=== PATIENT | female | born 1990 | race African-American/Black ===

== ENCOUNTER 2017-01-02 11:03 | Emergency (ER) | payer OTHER ==
[~2017-01-02] VITALS: Ht 175.3 cm; Wt 80.3 kg
[~2017-01-02 11:03] MED LIST: CHOLTAB3 PO; FOLI1TAB7 PO; IBUP-1427 PO; PENI250T3 PO
[2017-01-02 11:05] VITALS: TEMP 36.7; Ht 175.3 cm; Wt 80.3 kg
[2017-01-02] MEDS ORDERED: CHOL400T PO (11:22)
[2017-01-02] MEDS ORDERED: SODIUM CHLORIDE 0.9% 1000ML 1,000 ML IV STA (11:25)
[2017-01-02 11:54] LABS: URINE APPEARANCE CLEAR (CLEAR); URINE BILIRUBIN NEG (NEG); URINE COLOR YELLOW; URINE NITRITE NEG (NEG); URINE SPECIFIC GRAVITY 1.011 (1.000-1.030); UROBILINOGEN NEG (NEG)
[2017-01-02 11:59] LABS: MANUAL MICROSCOPIC REQUIRED? NO; REVIEW REQ? NO
[2017-01-02 12:04] VITALS: O2SAT 97
[2017-01-02 12:04] LABS: PROTHROMBIN TIME (PATIENT) 10.4 SECONDS (9.0-12.0)
[2017-01-02 12:13] LABS: BASO % 0.6 %; BASO ABS # 0.06 K/uL (0-0.2); COMPLETE YES; EOS % 1.8 %; HEMATOCRIT 32.2 % (37-47); IG% 0.3 %; LYMPH % 12.7 %; LYMPH ABS # 1.27 K/uL (1.2-3.4); MEAN CELL VOLUME 75.2 fL (80-100); MEAN CORPUSCULAR HEMOGLOBIN 26.9 pg (25-34); MEAN CORPUSCULAR HGB CONC 35.7 g/dl (32-36); MEAN PLATELET VOLUME 9.7 fL (7.4-10.4); MONO % 9.9 %; NEUT % 74.7 %; PLATELET COUNT 361 K/uL (130-400); RED BLOOD COUNT 4.28 M/uL (4.2-5.4); WHITE BLOOD COUNT 10.02 K/uL (4.8-10.8)
[2017-01-02 12:36] LABS: BLOOD UREA NITROGEN 5 mg/dl (7-18); BUN/CREATININE RATIO 5.7 (10-20); CALCIUM 9.4 mg/dl (8.5-10.1); CARBON DIOXIDE 26 mmol/L (21-32); CHLORIDE 108 mmol/L (98-107); CREATININE 0.84 mg/dl (0.60-1.20); GLUCOSE 77 mg/dl (70-99); POTASSIUM 3.8 mmol/L (3.5-5.1); SODIUM 141 mmol/L (136-145)
--- NOTE | 2017-01-02 13:14 | DIAGNOSTIC IMAGING REPORT ---
CHEST 2 VIEWS ROUTINE HISTORY:26 yearsFemale acute chest pain. History of sickle cell disease. COMPARISON: Chest radiograph 02/22/2016. TECHNIQUE: Frontal and lateral views of the chest. FINDINGS: Cardiomediastinal and hilar silhouettes are within normal limits. There is no pneumothorax, pleural effusion, focal airspace consolidation or overt pulmonary edema. The bones are grossly intact. IMPRESSION: No acute cardiopulmonary process. The above report was generated using voice recognition software. It may contain grammatical, syntax or spelling errors. Electronically signed by: Domo Anthony M.D. 01/02/2017 1:12 PM Dictated Date/Time: 01/02/2017 1:11 PM
[2017-01-02] MEDS ORDERED: IBUPROFEN 600 MG TAB PO STA (13:18)
[2017-01-02] MEDS ORDERED: ALBUT/IPRATROP 3MG/0.5MG NEB 3 ML VIAL INH STA (13:18)
[2017-01-02 14:40] VITALS: BP 112/69; PULSE 74; O2SAT 98
--- NOTE | 2017-01-02 17:51 | EMERGENCY ROOM VISIT NOTE ---
History Report prepared by [place]: Mandy Wilder Under the Supervision of: Dr. Gab Flores M.D. First contact with patient: 11:19 Chief Complaint: ILLNESS Stated Complaint: SHORTNESS OF BREATH, CHEST PAINS, HEADACHE History of Present Illness The patient is a 26 year old female who presents to the Emergency Room with complaints of constant illness symptoms beginning 3 days prior to arrival. The patient states that her symptoms began with a headache, congestion, shortness of breath and chills. She notes a mild cough but states that she's been trying to suppress her cough. The patient states that 2 days ago she began to develop chest pain. She states the pain can be sharp at times. She has been taking Ibuprofen and is unsure if she has a fever. The patient denies leg swelling or chance of . The patient has sickle cell and denies ever having acute chest syndrome or any history of crises. She does have asthma and has been using her inhaler with no improvement of her symptoms. 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 A total of 10 systems reviewed and were otherwise negative. Past Medical & Surgical Medical Problems: (1) No pertinent past medical history Surgical Problems: (1) No pertinent past surgical history Family History Patient reports no known family medical history. Social History Smoking Status: Never Smoker Marital Status: single Occupation Status: student Current/Historical Medications Scheduled Cholecalciferol (Vitamin D), 400 UNITS PO DAILY Folic Acid (Folvite), 1 MG PO DAILY Allergies Coded Allergies: No Known Allergies (Unverified , 01/02/17) Physical Exam Vital Signs Date Time Temp Pulse Resp B/P (MAP) Pulse Ox O2 Delivery O2 Flow Rate FiO2 01/02/17 14:40 74 16 112/69 98 01/02/17 13:14 84 16 113/69 99 Room Air 01/02/17 12:04 97 Room Air 01/02/17 11:05 36.7 77 18 115/83 97 Room Air Physical Exam Constitutional: Vital signs reviewed. Eyes: Pupils are equal round reactive to light. Conjunctiva are noninjected. ENT: Pharynx is clear without erythema or exudate. Mucous membranes are moist. Neck supple without meningeal signs. Respiratory: Clear to auscultation bilaterally. Breath sounds are equal bilaterally. No wheezing. Cardiovascular: Regular rate and rhythm. No rubs or gallops. GI: Soft, nondistended and nontender. Bowel sounds are present. Musculoskeletal: No peripheral edema. No lower extremity tenderness. Integumentary: No cyanosis. Neurological: The patient is awake and alert. Cranial nerves II-XII are intact. Motor is 5 out of 5 all extremities. Sensation is intact to light touch all extremities. Normal speech. No pronator drift. Psychiatric: Normal affect. Medical Decision & Procedures ER Provider Diagnostic Interpretation: X-ray results as stated below per interpretation by me and the radiologist: CHEST 2 VIEWS ROUTINE HISTORY:26 yearsFemale acute chest pain. History of sickle cell disease. COMPARISON: Chest radiograph 02/22/2016. TECHNIQUE: Frontal and lateral views of the chest. FINDINGS: Cardiomediastinal and hilar silhouettes are within normal limits. There is no pneumothorax, pleural effusion, focal airspace consolidation or overt pulmonary edema. The bones are grossly intact. IMPRESSION: No acute cardiopulmonary process. The above report was generated using voice recognition software. It may contain grammatical, syntax or spelling errors. Electronically signed by: Domo Anthony M.D. 01/02/2017 1:12 PM Dictated Date/Time: 01/02/2017 1:11 PM Laboratory Results 01/02/17 12:00 Red Blood Count 4.28, Mean Corpuscular Volume 75.2, Mean Corpuscular Hemoglobin 26.9, Mean Corpuscular Hemoglobin Concent 35.7, Mean Platelet Volume 9.7, Neutrophils (%) (Auto) 74.7, Lymphocytes (%) (Auto) 12.7, Monocytes (%) (Auto) 9.9, Eosinophils (%) (Auto) 1.8, Basophils (%) (Auto) 0.6, Neutrophils # (Auto) 7.49, Lymphocytes # (Auto) 1.27, Monocytes # (Auto) 0.99, Eosinophils # (Auto) 0.18, Basophils # (Auto) 0.06 01/02/17 12:00 Test 01/02/17 00:00 01/02/17 11:40 01/02/17 12:00 Urine Color YELLOW Urine Appearance CLEAR (CLEAR) Urine pH 7.0 (4.5-7.5) Urine Specific [place] 1.011 (1.000-1.030) Urine Protein NEG (NEG) Urine Glucose (UA) NEG (NEG) Urine Ketones NEG (NEG) Urine Occult Blood NEG (NEG) Urine Nitrite NEG (NEG) Urine Bilirubin NEG (NEG) Urine Urobilinogen NEG (NEG) Urine Leukocyte Esterase NEG (NEG) Urine Test NEG (NEG) Prothrombin Time 10.4 SECONDS (9.0-12.0) Prothromb Time International Ratio 1.0 (0.9-1.1) Activated Partial Thromboplast Time 25.0 SECONDS (21.0-31.0) Partial Thromboplastin Ratio 1.0 White Blood Count 10.02 K/uL (4.8-10.8) Red Blood Count 4.28 M/uL (4.2-5.4) Hemoglobin 11.5 g/dL (12.0-16.0) Hematocrit 32.2 % (37-47) Mean Corpuscular Volume 75.2 fL (80-100) Mean Corpuscular Hemoglobin 26.9 pg (25-34) Mean Corpuscular Hemoglobin Concent 35.7 g/dl (32-36) Platelet Count 361 K/uL (130-400) Mean Platelet Volume 9.7 fL (7.4-10.4) Neutrophils (%) (Auto) 74.7 % Lymphocytes (%) (Auto) 12.7 % Monocytes (%) (Auto) 9.9 % Eosinophils (%) (Auto) 1.8 % Basophils (%) (Auto) 0.6 % Neutrophils # (Auto) 7.49 K/uL (1.4-6.5) Lymphocytes # (Auto) 1.27 K/uL (1.2-3.4) Monocytes # (Auto) 0.99 K/uL (0.11-0.59) Eosinophils # (Auto) 0.18 K/uL (0-0.5) Basophils # (Auto) 0.06 K/uL (0-0.2) RDW Standard Deviation 44.2 fL (36.4-46.3) RDW Coefficient of Variation 16.0 % (11.5-14.5) Immature Granulocyte % (Auto) 0.3 % Immature Granulocyte # (Auto) 0.03 K/uL (0.00-0.02) Nucleated RBC Absolute Count (auto) 0.05 K/uL (0-0) Nucleated Red Blood Cells % 0.5 % Absolute Reticulocyte Count 0.16 10^6/uL (0.02-0.10) Percent Reticulocyte Count 3.7 % (0.5-2.0) Anion Gap 7.0 mmol/L (3-11) Est Creatinine Clear Calc Drug Dose 117.2 ml/min Estimated GFR () 112.7 Estimated GFR (Non- 97.3 BUN/Creatinine Ratio 5.7 (10-20) Calcium Level 9.4 mg/dl (8.5-10.1) Troponin I < 0.015 ng/ml (0-0.045) Laboratory results as reviewed by me. Medications Administered Medications (Trade) Dose Ordered Sig/Elliot Route Start Time Stop Time Status Last Admin Dose Admin Sodium Chloride 1,000 ml @ 999 mls/hr Q1H1M STAT IV 01/02/17 11:25 01/02/17 12:25 DC 01/02/17 11:49 999 MLS/HR Ibuprofen (Motrin Tab) 600 mg NOW STAT PO 01/02/17 13:18 01/02/17 13:20 DC 01/02/17 13:32 600 MG Albuterol/ Ipratropium (Duoneb) 3 ml NOW STAT INH 01/02/17 13:18 01/02/17 13:20 DC 01/02/17 13:33 3 ML ECG Indication: SOB/dyspnea Rate (beats per minute): 66 Rhythm: normal sinus Findings: no acute ischemic change, no ectopy ED Course 1120: The patient was evaluated in room B11. A complete history and physical exam was performed. 1125: Sodium Chloride 1,000 ml @ 999 mls/hr IV. 1316: The patient states her chest pain is gone. She is only complaining of a headache and would like Motrin and a Nebulizer. I expressed concern for clot in the lung and she says she does not want any work up for that, she will not allow another IV placed and she just wants to go to work. 1318: Duoneb 3 ml INH, Motrin Tab 600 mg PO. 1417: I talked with the patient and she would like to go home. She is feeling better. She no longer has a headache or chest pain. 1422: Upon reevaluation, the patient appeared to have improvement of her symptoms. I discussed lamar's findings with her. She verbalized agreement of the treatment plan. She was discharged home. Medical Decision This is a 26-year-old female who presents with cold symptoms, chest pain and headache. Differential diagnosis includes URI, pneumonia, bronchitis, acute chest syndrome, sickle cell crisis, sinusitis. I did perform a limited focused review of portions of the patient's old chart on the electronic medical record. The patient has had no recent pertinent visits to this hospital. Medication Reconciliation: I attest that I have personally reviewed the patient' s current medication list. Blood Pressure Screening: Patient was found to have normal blood pressure on screening and does not require follow-up. I did evaluate the patient as noted above. The patient is presenting with cold symptoms and chest pain and a headache. She does have a history of sickle cell but has had no prior history of acute chest syndrome or crisis. She does have a history of asthma and feels she needs a nebulizer. IV access was established. I did order and personally review the patient's 12-lead EKG and chest x-ray as described above. Her twelve-lead EKG is unremarkable. Chest x- ray does not show any signs of infiltrate. I did order and review the patient' s blood work as noted in the electronic medical record. Troponin is negative. There is no signs of aplastic crisis. Urinalysis is unremarkable. I did wish to work her up for possible pulmonary embolism but the patient refused further workup. She stated that she would not let anyone putting an IV in her antecubital fossa. She furthermore only allowed them to put a very small bore IV in her hand. I expressed my concerns to her and she continued to decline any further workup. She was treated with a DuoNeb and Motrin. On reassessment she felt better. Her chest pain resolved and she denies any headache. She continues to decline any further workup and wanted to go to work and be discharged. She was advised follow closely with her doctor. She was discharged in good condition. Impression Primary Impression: Acute chest pain Additional Impressions: Acute headache Sickle cell anemia Scribe Attestation The scribe's documentation has been prepared under my direct and personally reviewed by me in its entirety. I confirm that the note above accurately reflects all work, treatment, procedures, and medical decision making performed by me. Departure Information Dispostion Home / Self-Care Referrals No Doctor, Assigned (PCP) Forms HOME CARE DOCUMENTATION FORM, IMPORTANT VISIT INFORMATION, WORK / SCHOOL INSTRUCTIONS Patient Instructions Anemia Sickle Cell, ED Chest Pain Atypical Unkn Cause, Headache Pain, My [facility] Additional Instructions You have been examined and treated today on an emergency basis only. This is not a substitute for, or an effort to provide, complete comprehensive medical care. It is impossible to recognize and treat all injuries or illnesses in a single emergency department visit. It is therefore important that you follow up closely with your physician within 24 hours. Call as soon as possible for an appointment. Return for worsening symptoms or if you develop fever, vomiting, difficulty breathing or any other concerning symptoms. Problem Qualifiers Additional Impressions: Acute headache Headache type: unspecified Intractability: not intractable Qualified Codes : R51 - Headache Sickle cell anemia Sickle-cell associated disorders: without crisis Qualified Codes: D57.1 - Sickle-cell disease without crisis
== END 2017-01-02 14:40 | disposition home or self-care (01) ==
LOC: C.EDB 11:04
DX: R07.9 Chest pain, unspecified (principal); R51 Headache; D57.1 Sickle-cell disease without crisis; Z79.899 Other long term (current) drug therapy; J45.909 Unspecified asthma, uncomplicated

== ENCOUNTER 2023-04-30 07:47 | Inpatient (IN) ==
[2023-04-30] MEDS ORDERED: OXYTOCIN 30 UNITS/500 ML BAG IV PRN ×2 (08:06→09:20)
[2023-04-30] MEDS ORDERED: LIDOCAINE 1% LOCAL 20 ML VIAL INFIL PRN (08:06)
--- NOTE | 2023-04-30 08:06 | History & Physical Report ---
Date of Service April 30, 2023 Assessment & Plan (1) Sickle cell anemia: (2) IUGR (intrauterine growth restriction) affecting care of mother: Plan Will admit patient to L&D for IOL. Mclain balloon placed yesterday and has not fallen yet. Patient comfortable. VSS. Fetus category 1. Pit as needed Stadol given Epidural prn Patient in agreement. Admission and Anticipated Discharge Date Admission Date: April 30, 2023 History of Present Illness Chief Complaint: induction of labor Primary Care Provider: Nayeli Headley PA-C [place] is a 32 y/o female currently at IUP 38 0/7 WGA with an PEDRO 05/14/23 as determined by certain LMP who is here for IOL due to hx of Sickle Cell anemia and IUGR. Cmlain balloon placed yesterday, which has not fallen out yet. (+) movement (-) contractions (-) fluid loss (-) bloody show External FHT and external uterine monitors used * Category 1 tracing * Moderate FHT variability. Had regular appointments since 1st trimester. OB Labs: Blood Type O Positive 10/16/22 Antibody Screen NEGATIVE 10/16/22 Hemoglobin 10.6 g/dl (12.0-16.0) L 04/12/23 Hematocrit 28.8 % (37.0-47.0) L 04/12/23 Mean Corpuscular Volume 72.2 fL (80.0-100.0) L 11/24/22 Platelet Count 329 K/uL (130-400) 11/24/22 Rubella IgG Antibody Immune (Immune) 10/16/22 Rapid Plasma Reagin Nonreactive (Nonreactive) 10/16/22 Hepatitis B Surface Antigen. NON-REACTIVE (NON-REACTIVE) 10/16/22 Hepatitis C Antibody (EIA) NON-REACTIVE (NON-REACTIVE) 10/16/22 HIV (1&2) Ag and Ab Confirmation NON-REACTIVE (NON-REACTIVE) 10/16/22 Glucose 1 Hour 50 gm Load 85 mg/dl (70-130) 02/19/23 Maternal Serum Alpha Fetoprotein 35.3 ng/mL 11/27/22 OB Optional Labs: Hemoglobin Electrophoresis Interp see note 09/09/18 Chlamydia trachomatis RNA Not Detected (NotDetected) 10/16/22 Neisseria gonorrhoeae RNA Not Detected (NotDetected) 10/16/22 Alpha Fetoprotein Triple Screen SEE NOTE 11/27/22 Labs Reviewed: cfdna-low risk Allergies Allergy/AdvReac Type Severity Reaction Status Date / Time pollen extracts Allergy Mild Congested Verified 04/30/23 08:01 Home Medications Medication Instructions Recorded Confirmed Type folic acid 1 mg tablet 4 mg (4 x 1 mg) PO DAILY sickle 10/16/22 04/30/23 Rx cell anemia #30 tabs aspirin 81 mg chewable tablet 81 mg PO QAM 11/24/22 04/30/23 History vitamin with calcium 1 tab PO QAM 11/24/22 04/30/23 History no.72-iron 27 mg-folic acid 1 mg tablet (WesTab Plus) ferrous sulfate 325 mg (65 mg 325 mg PO DAILY 04/29/23 04/30/23 History iron) tablet Patient History Medical History (Updated 04/30/23 @ 07:58 by Emi Robin RN) IUGR (intrauterine growth restriction) affecting care of mother Family history of diabetes mellitus (DM) 2 brothers with Type II Allergic rhinitis Asthma Use of cannabis used prior to - not used during Vitamin D deficiency Sickle cell anemia Follow [facility] Hematology Chronic anemia Surgical History No pertinent past surgical history Family History Grandmother No problems noted. Denies family history of Ovarian cancer Prostate cancer Myocardial infarction Breast cancer Colorectal cancer Social History (Updated 04/30/23 @ 08:01 by Emi Robin RN) Smoking Status: Never smoker Second Hand Exposure: No; Do You Dip or Chew Tobacco: No; Hx Alcohol Use: No Hx Substance Use: Yes Prescribed Medications: Marijuana Non-Prescribed Medications Comment: prior to Last Used Substance: Unknown Last Used Substance Other:: per patient used prior to Substance Use Type Other:: denied substance use when asked Preferred Language: Portuguese Tablet Tester Required: No Beliefs That Will Affect Care: None marital status: Single marital status details: Dee Dee NEGRON not involved Current Living Situation: Family Current Living Situation Comment: lives with brother, no pets current occupational status: unemployed 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states is no longer employed Other Information That Helps Us Care for You: No Feels Safe at Home: Yes Safety Concerns: Feels Safe At This Time Dental Care, Regularly: Yes Physical Activity Frequency: Daily Seatbelt Use: always [employer] RO[employer] History Menarche was at 17 y/o LMP: 08/07/22 * Regular: Every 28-30 days * Flow: Normal Contraception use: No History of STDs: N Last Pap Smear:01/30/2022 (negative) Review of Systems no fever, no chills and no sweats Denies changes in vision. Denies shortness of breath or respiratory difficulty. no chest pain and no palpitations no dysuria no headache(s) Physical Exam Physical Exam: General: Alert, oriented x3. Afebrile. No acute distress. Eyes: Pupils equal and reactive to light bilaterally. Extraocular movement intact bilaterally. Cardiac: Regular rate and rhythm, no murmurs/rubs/gallops. Respiratory: Clear to auscultation bilaterally a/p, no wheezes/rales/rhonchi. No increased work of breathing. Symmetrical chest rise. No respiratory distress. Abdomen: Gravid; FHR baseline 130-135 bpm; Position: Cephalic Pelvic: 2-3 / 60 / High per Dr. Mancini Lower Extremities: No lower extremity edema or swelling. No deep calf pain. Lico's negative bilaterally Genitourinary: OB Exam Abdomen: + vertex (confirmed by bedside ultrasound), + estimated weight (5-6 pounds) and + irregular contractions OB Exam Monitor Tracing: + external FHT monitor used, + external uterine monitor used, + category I, + normal FHT variability and + variable decelerations (one mild variable noted) isolated Results & Data Vital Signs (Past 12 Hours) Vital Signs Pulse BP 04/30/23 07:54 92 H 96/55 L Supervising Physician Co-Signing Physician Notes Resident Physician Supervision Note: I interviewed and examined the patient. Discussed with Dr. Ramirez and agree with findings and plan as documented in the note. Any exceptions or clarifications are listed here: [None] Documented By: Dafne German MD, FACOG Resident Activity Tracking Resident Involvement: Resident Care Provided Care Provided: OB Delivery
[2023-04-30] MEDS: LACTATED RINGER'S 1,000 ML IV PRN ×2 (09:23→12:19)
[2023-04-30] MEDS: BUTORPHANOL TARTRATE 1 MG/ML VIAL IV PRN ×2 (09:35→14:01)
[2023-04-30 09:42] LABS: Hematocrit (blood only) 29.7 % (37.0-47.0); Hemoglobin 10.8 g/dl (12.0-16.0); Mean Corpuscular Hemoglobin 27.8 pg (25.0-34.0); Mean Corpuscular Hgb Conc 36.4 g/dL (32.0-36.0); Mean Corpuscular Volume 76.3 fL (80.0-100.0); Mean Platelet Volume 10.5 fL (9.4-12.4); Nucleated RBC # (auto) 0.07 K/uL (0.00-0.12); Nucleated RBC % (auto) 0.6 %; Platelet Count 263 K/uL (130-400); RDW Coefficient of Variation 14.6 % (11.5-14.5); RDW Standard Deviation 40.2 fL (36.4-46.3); Red Blood Count 3.89 M/uL (4.20-5.40); White Blood Count 11.64 K/ul (4.8-10.8)
--- NOTE | 2023-04-30 12:30 | Labor Progress Brief Note ---
Date of Service April 30, 2023 Subjective Reason For Note: Monitor Concern moderate variables with contractions which are every 2-3 minutes on 6 milliunits of pitocin cervical balloon still in place cervix exam - no change will stop pit for now and watch FHT as variables have improved with stopping pitocin she is still su spontaneously every 3-5 minutes now but mild intensity T&S done FHT reviewed with patient and family. currently in early labor with minimal cervical change - will allow FHT's to recover but may have to move forward with LTCS if tracing continues with moderate and persistent variables with contractions. Assessment & Plan Admission and Anticipated Discharge Date Admission Date: April 30, 2023 Results & Data Vital Signs (Past 12 Hours) Vital Signs Temp Pulse Resp BP 04/30/23 11:39 65 127/73 04/30/23 11:00 18 04/30/23 11:00 98.8 F 18 04/30/23 10:39 67 101/60 04/30/23 09:38 71 108/67 04/30/23 07:56 98.4 F 20 04/30/23 07:54 92 H 96/55 L
[2023-04-30] MEDS ORDERED: CITRIC ACID/SODIUM CITRATE 15 ML UDC ONE (16:46)
--- NOTE | 2023-04-30 16:47 | Labor Progress Brief Note ---
Date of Service April 30, 2023 Subjective Reason For Note: Monitor Concern cervical balloon has fallen out and pitocin has not been restarted because of moderate to deep variables she is su spontaneously every 3-7 minutes and there are moderate to deep variables with each contraction cervix now 3-4/80/high with bulging membranes present presenting part to high to rupture membranes safely. moderate -deep variables prevent restarting the pitocin to get an adequate contraction pattern discussed options at this point with continuing induction with current contraction pattern - I am still unable to rupture membranes safely to facilitate better uterine contraction pattern. We discussed proceeding with section because of intolerance of labor. the procedure and it's risks were reviewed with the patient and her family and all questions answered to her satisfaction. Assessment & Plan Admission and Anticipated Discharge Date Admission Date: April 30, 2023 Results & Data Vital Signs (Past 12 Hours) Vital Signs Temp Pulse Resp BP 04/30/23 16:38 84 117/74 04/30/23 15:39 80 113/69 04/30/23 15:09 20 04/30/23 15:09 98.8 F 04/30/23 14:39 89 125/78 04/30/23 13:40 77 118/71 04/30/23 12:40 71 122/67 04/30/23 11:39 65 127/73 04/30/23 11:00 18 04/30/23 11:00 98.8 F 18 04/30/23 10:39 67 101/60 04/30/23 09:38 71 108/67 04/30/23 07:56 98.4 F 20 04/30/23 07:54 92 H 96/55 L
[2023-04-30] MEDS ORDERED: LACTATED RINGER'S 1,000 ML IV SCH (17:00)
[2023-04-30] MEDS ORDERED: CITRIC ACID/SODIUM CITRATE 15 ML UDC PO SCH (17:00)
--- NOTE | 2023-04-30 17:18 | Anesthesiology Consultation ---
Date of Service April 30, 2023 Assessment & Plan Chart Review Chart Review: Acceptable Risk for Surgery Consults Requested none History Surgery Operation Date: 04/30/23 17:45 Proposed Procedures p Section in LD - Dafne German MD, FACOG Height/Weight Height: 5 ft 9 in Weight: 102.058 kg Allergies Allergy/AdvReac Type Severity Reaction Status Date / Time pollen extracts Allergy Mild Congested Verified 04/30/23 08:01 Medications Home Medications Medication Instructions Recorded Confirmed Last Taken folic acid 1 mg tablet 4 mg (4 x 1 mg) PO DAILY sickle 10/16/22 04/30/23 04/28/23 cell anemia #30 tabs aspirin 81 mg chewable tablet 81 mg PO QAM 11/24/22 04/30/23 04/28/23 vitamin with calcium 1 tab PO QAM 11/24/22 04/30/23 04/24/23 no.72-iron 27 mg-folic acid 1 mg tablet (WesTab Plus) ferrous sulfate 325 mg (65 mg 325 mg PO DAILY 04/29/23 04/30/23 04/28/23 iron) tablet Active Medications Generic Name Dose Route Start Last Admin Trade Name Freq PRN Reason Stop Dose Admin Butorphanol Tartrate 1 mg 04/30/23 09:16 04/30/23 14:01 Butorphanol Tartrate 1 Mg/Ml Vial IV 05/30/23 09:15 1 mg Q2H PRN Administration Pain Citric Acid/Sodium Citrate 30 ml 04/30/23 17:00 04/30/23 17:05 Citric Acid/Sodium Citrate 15 Ml Udc PO 04/30/23 23:59 Not Given PREOP SHANIA Lactated Ringer's 1,000 mls @ 125 mls/hr 04/30/23 08:06 04/30/23 12:19 Lr IV 05/02/23 08:05 125 mls/hr .Q8H PRN Administration L&D Protocol Protocol Oxytocin 30 units in 500 mls @ 0 mls/hr 04/30/23 09:20 04/30/23 11:53 Pitocin IV 05/02/23 09:19 0 units/hr .Q0M PRN 0 mls/hr Labor Induction/Augmentation Titration Protocol 0 UNITS/HR Past Medical History Medical History (Updated 04/30/23 @ 07:58 by Emi Robin RN) IUGR (intrauterine growth restriction) affecting care of mother Family history of diabetes mellitus (DM) 2 brothers with Type II Allergic rhinitis Asthma Use of cannabis used prior to - not used during Vitamin D deficiency Sickle cell anemia Follow [facility] Hematology Chronic anemia Past Family History Family History Grandmother No problems noted. Denies family history of Ovarian cancer Prostate cancer Myocardial infarction Breast cancer Colorectal cancer Past Surgical History Surgical History No pertinent past surgical history Social History Smoking Status: Never smoker Do You Dip or Chew Tobacco: No Hx Alcohol Use: No Hx Substance Use: Yes substance use type: marijuana Substance Use Type Other:: denied substance use when asked Last Used Substance: Unknown Last Used Substance Other:: per patient used prior to Physical Exam Vital Signs Last Vital Signs Temp 37.1 C 04/30/23 15:09 Pulse 84 04/30/23 16:38 Resp 20 04/30/23 15:09 BP 117/74 04/30/23 16:38 Testing Laboratory Results 04/30/23 08:38 Blood Type O Positive 04/30/23 08:38 Antibody Screen NEGATIVE 04/30/23 08:38
[2023-04-30] MEDS ORDERED: LACTATED RINGER'S 500 ML IV PRN (17:29)
[2023-04-30] MEDS ORDERED: ePHEDrine sulfate 50 MG/ML AMP IV PRN (17:29)
[2023-04-30] MEDS ORDERED: MEPERIDINE HCL 25 MG/ML CARP/VIAL IV PRN (17:29)
[2023-04-30] MEDS ORDERED: NALBUPHINE HCL 5 MG in SYRINGE 0 ML IV PRN (17:29)
[2023-04-30] MEDS ORDERED: diphenhydrAMINE 50 MG/ML VIAL IV PRN (17:29)
[2023-04-30] MEDS ORDERED: HYDROmorphone INJ 0.5 MG/0.5 ML SYR IV PRN (17:29)
[2023-04-30] MEDS ORDERED: MoRPHine SULFATE PF 1 MG/ML 10 ML AMP/VIAL INT SPINAL ONE (17:29)
[2023-04-30] MEDS ORDERED: NALOXONE HCL 1 MG in SODIUM CHLORIDE 0.9% 1,000 ML IV PRN (17:29)
[2023-04-30] MEDS ORDERED: MoRPHine SULFATE 2 MG/ML CARP IV PRN (17:29)
[2023-04-30] MEDS ORDERED: NALOXONE HCL 0.08 MG in SYRINGE 1.8 ML IV PRN (17:29)
[2023-04-30] MEDS ORDERED: ACETAMINOPHEN 1,000 MG/100 ML VIAL IV PRN (17:29)
[2023-04-30] MEDS ORDERED: NALOXONE HCL 0.4 MG/1 ML VIAL/CARP IV PRN (17:29)
[2023-04-30] MEDS ORDERED: DC INTRASPINAL MORPHINE SCH (17:30)
[2023-04-30] MEDS ORDERED: NO NARCOTICS OR SEDATIVES SCH (17:30)
[2023-04-30] MEDS ORDERED: SODIUM CHLORIDE 0.9% 1,000 ML IV SCH (17:30)
[2023-04-30] MEDS ORDERED: MoRPHine SULFATE PF 1 MG/ML 10 ML AMP/VIAL ONE (17:33)
[2023-04-30] MEDS ORDERED: OXYTOCIN 10 UNITS/ML VIAL ONE ×2 (17:56→18:46)
[2023-04-30 18:33] LABS: Base Excess Cord Arterial Bld -6.4 mEq/L (-9-1.8); CO2 Cord Arterial Blood 54 mmHg (39.1-73.5); HCO3 Cord Arterial Blood 22 mmol/L (19.7-28.5); Oxygen Sat Cord Arterial Blood < 60.0 % (<60); PO2 Cord Arterial Blood < 20 mmHg (4.1-31.7); pH Cord Arterial Blood 7.22 (7.1-7.38)
[2023-04-30 18:38] LABS: Base Excess Cord Venous Blood -4.2 mEq/L (-7.7-1.9); Cord Venous Blood HCO3 23 mmol/L (18.4-26.8); Cord Venous Blood PCO2 52 mmHg (30.4-57.2); Cord Venous Blood PO2 < 20 mmHg (14.1-43.3); Cord Venous Blood pH 7.26 (7.20-7.44); O2 Saturation Cord Venous Bld < 60.0 % (<68)
[2023-04-30] MEDS ORDERED: ePHEDrine sulfate 50 MG/5 ML SYR ONE (18:46)
--- NOTE | 2023-04-30 18:49 | Post Operative Brief Note ---
PG Immediate Post Op with CF Date of Surgery April 30, 2023 Pre & Post Diagnosis Operation Date: 04/30/23 17:45 Pre-Op Diagnosis: Intolerance of Labor Post-Op Diagnosis: Intolerance of Labor I identified the patient and participated in the time-out.: Yes Procedure Operation Date: 04/30/23 17:45 Actual Procedures p Section in LD delivery of live male child at 1805 - Dafne Mancini MD, FACOG Surgeon Dafne German MD, FACOG Appellate Conferee Josephine Ramirez MD Estimated Blood Loss 600 Findings Consistent with Post-Op Diagnosis Specimens Specimen Description: 1. Placenta 2. Cord Blood 3. Cord blood gases Drains Mclain Catheter Anesthesia Type Spinal Complications none Disposition Accompanied Patient To Recovery: Yes Disposition: L&D
[2023-04-30] MEDS ORDERED: DIPHTHERIA/TETANUS/PERTUSSIS Vaccine (Tdap, Age 7+yrs) 0.5mL SYR/VL IM ONE (19:06)
[2023-04-30] MEDS ORDERED: MAGNESIUM HYDROXIDE SUSP 30 ML UDC PO PRN (19:06)
[2023-04-30] MEDS ORDERED: SENNA 8.6 MG TAB PO PRN (19:06)
[2023-04-30] MEDS ORDERED: HYDROCORTISONE ACETATE 25 MG SUPP PR PRN (19:06)
[2023-04-30] MEDS ORDERED: BENZOCAINE 20% SPRY 85 APPLN/85 GM CAN EXT PRN (19:06)
[2023-04-30] MEDS: KETOROLAC 30 MG/ML VIAL IV PRN (19:20)
[2023-04-30] MEDS: LACTATED RINGER'S 1,000 ML IV SCH (19:47)
[2023-04-30] MEDS: OXYTOCIN 20 UNITS in LACTATED RINGER'S 1,000 ML IV SCH (20:03)
--- NOTE | 2023-04-30 20:33 | Anesthesiology Progress Note ---
Date of Service April 30, 2023 Anesthesia Post Procedure Vital Signs Vital Signs: Temp Pulse Resp BP Pulse Ox 04/30/23 20:27 100 H 96 04/30/23 20:22 93 H 103/61 96 04/30/23 20:17 104 H 96 04/30/23 20:12 96 04/30/23 20:12 85 04/30/23 20:12 84 103/61 04/30/23 20:09 88 88 L 04/30/23 20:07 88 97 04/30/23 20:02 94 H 107/61 97 04/30/23 19:57 86 99 04/30/23 19:52 36.7 C 20 04/30/23 19:52 83 104/55 L 99 04/30/23 19:47 80 98 04/30/23 19:42 20 04/30/23 19:42 99 04/30/23 19:42 81 04/30/23 19:42 85 102/57 L 04/30/23 19:37 82 99 04/30/23 19:32 20 04/30/23 19:32 90 104/62 100 04/30/23 19:27 79 100 04/30/23 19:23 80 116/62 04/30/23 19:22 18 04/30/23 19:22 85 100 04/30/23 19:17 90 100 04/30/23 19:12 18 04/30/23 19:12 83 111/55 L 100 04/30/23 19:07 86 100 04/30/23 19:02 20 04/30/23 19:02 86 119/56 L 100 04/30/23 18:57 77 99 04/30/23 18:54 82 110/59 L 04/30/23 18:52 37.0 C 20 04/30/23 18:52 83 100 04/30/23 16:38 84 117/74 04/30/23 15:39 80 113/69 04/30/23 15:09 20 04/30/23 15:09 37.1 C 20 04/30/23 14:39 89 125/78 04/30/23 13:40 77 118/71 04/30/23 12:40 71 122/67 04/30/23 11:39 65 127/73 04/30/23 11:00 18 04/30/23 11:00 37.1 C 18 04/30/23 10:39 67 101/60 04/30/23 09:38 71 108/67 04/30/23 07:56 36.9 C 20 04/30/23 07:54 92 H 96/55 L Pain Intensity Lower Abdomen: Pain Intensity: 3 Transfer of Care Handoff Completed per policy Notes Mental Status: alert / awake / arousable and participated in evaluation Nausea / Vomiting: adequately controlled Pain: adequately controlled Airway Patency, RR, SpO2: stable & adequate BP & HR: stable & adequate Hydration State: stable & adequate Neuraxial Anesthesia: was administered and sensory block is resolving Anesthetic Complications: no major complications apparent and Pt Satisfied with anesthetic care
--- NOTE | 2023-04-30 21:55 | Operative Report ---
PG Post Operative Report Pre & Post Diagnosis Operation Date: 04/30/23 17:45 Pre-Op Diagnosis: Intolerance of Labor Post-Op Diagnosis: Intolerance of Labor I identified the patient and participated in the time-out.: Yes Procedure Operation Date: 04/30/23 17:45 Actual Procedures p Section in LD delivery of live male child at 1805 - Dafne Mancini MD, FACOG Surgeon Dafne German MD, FACOG V Belt Coverer Josephnie Ramirez MD Estimated Blood Loss 600 Findings Consistent with Post-Op Diagnosis The uterus was gravid and consistent with a term in size. Bilateral ovaries and fallopian tubes were also grossly normal. There were 3 tiny sessile fibroids on the fundus of the uterus. Specimens Placenta to hold Drains Mclain catheter to straight drainage. Clear urine at the end of the case. Anesthesia Type Spinal Complications none Disposition Accompanied Patient To Recovery: Yes Disposition: L&D Indications Patient is a 32-year-old 1 P0 female presents at 38-0/7 weeks for induction because of IUGR. She received a cervical balloon for ripening and then Pitocin induction was begun. Almost immediately after the Pitocin was initiated, there were moderate variables with each contraction. The Pitocin had to be stopped although she continued to contract spontaneously. Cervical balloon was expelled but the presenting part could not be palpated with bulging membranes present. Because of the ongoing moderate to severe variables with contractions, and because membranes could not be ruptured because of the high station of the head, it was felt prudent to proceed with low transverse section. This was discussed at length with the patient and her mother and after all questions were answered they were willing to proceed. Description of Procedure After the patient received adequate subarachnoid block she was prepped and draped in usual sterile fashion. A low transverse skin incision was made with a scalpel carried the fascia with the same scalpel. The fascial incision was then extended with Rodriguez scissors and the underlying rectus muscles bluntly sharply dissected off the overlying fascia. The rectus muscles were then bluntly divided in the midline and the underlying peritoneum elevated and entered sharply. The lower uterine segment was not well developed and was quite narrow. The bladder was then taken down off the anterior surface of the uterus and placed behind the bladder blade. Lower uterine incision was made with a scalpel and the incision was extended transversely. Membranes were ruptured for clear fluid. The infant was delivered from the vertex presentation with moderate fundal pressure and assistance of a Kiwi vacuum to bring the head into the uterine incision. Delivery of the head was difficult because of the narrowness of her pelvis. After the head was delivered the rest the infant delivered easily. He was vigorous, crying, and moving all 4 limbs. Cord was clamped and cut. Cord gases were sent. The was handed off to Dr. Ward who was attendance as laboratory animal facility supervisor. After cord blood was obtained, the placenta was expressed intact with a three-vessel cord. The uterus was then exteriorized and cut with a clean lap sponge. The uterus was then closed in 2 layers in a running locking imbricating fashion with 0 Monocryl suture. Bleeding along the bladder flap was controlled with the Bovie. Hemostasis noted to be satisfactory in both the uterine incision and bladder flap area. Posterior cul-de-sac was suctioned for small amount of blood and clot. After examining the uterine incision once more and found to have excellent hemostasis, the uterus was placed gently back inside the abdominal cavity. Hemostasis continue to be satisfactory and the gutters were explored and found to be free of any clot or fluid. The rectus muscles were brought together on the midline with individual stitches of 0 Monocryl. The fascia was then closed in a running fashion with 0 Vicryl. After the subcutaneous layer was irrigated, the skin edges were reapproximated using a subcuticular stitch of 4-0 Vicryl. Patient tolerated procedure well was stable upon arrival back in labor and delivery. I attest to the content of the Intraoperative Record and any orders documented therein. Any exceptions are noted below. OB Procedure Charges 38573
[2023-05-01] MEDS: DOCUSATE SODIUM 100 MG CAP PO SCH ×3 (00:13→20:52)
[2023-05-01] MEDS: SIMETHICONE 80 MG CHEW PO SCH ×5 (00:13→20:52)
[2023-05-01] MEDS: KETOROLAC 30 MG/ML VIAL IV PRN ×2 (01:57→08:20)
[2023-05-01] MEDS: OXYTOCIN 20 UNITS in LACTATED RINGER'S 1,000 ML IV SCH (04:09)
--- NOTE | 2023-05-01 07:45 | Obstetrical Progress Note ---
Date of Service <Josephine Ramirez MD - Last Filed: 05/01/23 07:47> May 01, 2023 Assessment & Plan <Josephine Ramirez MD - Last Filed: 05/01/23 07:47> (1) Encounter for assessment: Plan Patient with the above mentioned history and findings was evaluated at bedside and found awake, alert, oriented in all spheres, afebrile, and in no acute distress. Vital signs showed no fever and blood pressures remained stable Her blood type is O pos and most recent hemoglobin at 10.8 g/dL. She is GBS negative and rubella immune. Overall, patient is doing well clinically. Diet already progressed and patient tolerating well. Will encourage ambulation as tolerated and remove Mclain catheter later today. Will continue routine pp care. All questions were answered. <Dafne German MD, FACOG - Last Filed: 05/01/23 07:48> (1) Encounter for assessment: Subjective <Josephine Ramirez MD - Last Filed: 05/01/23 07:47> Lima is a 32 y/o female who is POD #1 following primary delivery at 38 0/7 weeks due to intolerance to labor. She reports feeling well overall this morning. Refers moderate abdominal cramping & 6/10 pain well managed on analgesics. Voiding through Mclain, which contains clear urine that is free of blood or sediment in the collecting bag and the line. Tolerating meals overnight. Has sat on the side of the bed without subsequent lightheadedness or dizziness, but has not ambulated or stood up yet. She is passing gas but has not yet had a bowel movement. Has some persistent lochia with some improvement this morning. Currently . Constitutional: no fever, no chills or no sweats Denies shortness of breath or difficulty breathing. Cardiovascular: no chest pain or no palpitations Breast: no breast pain Genitourinary (female): no dysuria Neurologic: no headache(s) Denies changes in vision. Physical Exam <Josephine Ramirez MD - Last Filed: 05/01/23 07:47> General: Alert. Oriented to person, time, and place. Afebrile. No acute distress. Eyes: pupils equal and reactive to light bilaterally, extraocular movements intact. Cardiac: Regular rate and rhythm, no murmurs/rubs/gallops. Respiratory: Clear to auscultation bilaterally a/p, no wheezes/rales/rhonchi. No increased work of breathing. Symmetrical chest rise. No respiratory distress. Abdomen: Soft, nontender, nondistended. Bowel sounds present. Low transverse surgical scar clean, without surrounding erythema or suppuration, and healing well. Uterus: Uterine fundus firm, mildly tender, and palpable below umbilicus. Lower Extremities: No lower extremity edema or swelling. No deep calf pain. Lico's negative bilaterally. Psych: Euthymic affect. Mood and affect congruence. Regular speech rate and content. Results & Data <Josephine Ramirez MD - Last Filed: 05/01/23 07:47> Vital Signs (Past 12 Hours) Vital Signs Temp Pulse Pulse Pulse Resp BP BP 05/01/23 06:10 16 05/01/23 05:15 16 05/01/23 04:20 05/01/23 03:55 36.6 C 80 16 104/68 05/01/23 03:15 05/01/23 02:15 05/01/23 01:15 05/01/23 00:15 04/30/23 23:12 16 04/30/23 23:12 36.4 C L 81 16 109/68 04/30/23 22:15 16 04/30/23 21:30 36.5 C 82 16 112/70 04/30/23 21:30 04/30/23 21:30 16 04/30/23 21:02 85 04/30/23 20:57 87 04/30/23 20:53 93 H 106/54 L 04/30/23 20:52 36.9 C 20 04/30/23 20:52 88 04/30/23 20:47 87 04/30/23 20:42 84 104/58 L 04/30/23 20:37 88 04/30/23 20:32 91 H 105/57 L 04/30/23 20:27 100 H 04/30/23 20:22 20 04/30/23 20:22 93 H 103/61 04/30/23 20:17 104 H 04/30/23 20:12 04/30/23 20:12 85 04/30/23 20:12 84 103/61 04/30/23 20:09 88 04/30/23 20:07 88 04/30/23 20:02 94 H 107/61 04/30/23 19:57 86 04/30/23 19:52 36.7 C 20 04/30/23 19:52 83 104/55 L 04/30/23 19:47 80 04/30/23 19:42 20 04/30/23 19:42 04/30/23 19:42 81 04/30/23 19:42 85 102/57 L Pulse Ox O2 Del Method O2 Del Method 05/01/23 06:10 96 05/01/23 05:15 95 05/01/23 04:20 95 05/01/23 03:55 98 Room Air 05/01/23 03:15 96 05/01/23 02:15 97 05/01/23 01:15 96 05/01/23 00:15 94 04/30/23 23:12 96 04/30/23 23:12 96 Room Air 04/30/23 22:15 97 04/30/23 21:30 98 Room Air 04/30/23 21:30 Room Air 04/30/23 21:30 98 04/30/23 21:02 96 04/30/23 20:57 97 04/30/23 20:53 04/30/23 20:52 04/30/23 20:52 97 04/30/23 20:47 95 04/30/23 20:42 96 04/30/23 20:37 96 04/30/23 20:32 96 04/30/23 20:27 96 04/30/23 20:22 04/30/23 20:22 96 04/30/23 20:17 96 04/30/23 20:12 96 04/30/23 20:12 04/30/23 20:12 04/30/23 20:09 88 L 04/30/23 20:07 97 04/30/23 20:02 97 04/30/23 19:57 99 04/30/23 19:52 04/30/23 19:52 99 04/30/23 19:47 98 04/30/23 19:42 04/30/23 19:42 99 04/30/23 19:42 04/30/23 19:42 Supervising Physician <Dafne German MD, FACOG - Last Filed: 05/01/23 07:48> Co-Signing Physician Notes Resident Physician Supervision Note: I interviewed and examined the patient. Discussed with Dr. Ramirez and agree with findings and plan as documented in the note. Any exceptions or clarifications are listed here: [None] Documented By: Dafne German MD, FACOG Resident Activity Tracking <Josephine Ramirez MD - Last Filed: 05/01/23 07:47> Resident Involvement: Resident Care Provided Care Provided: OB Delivery
[2023-05-01 07:49] LABS: Mean Corpuscular Hemoglobin 28.3 pg (25.0-34.0); Mean Corpuscular Volume 76.5 fL (80.0-100.0); Nucleated RBC # (auto) 0.05 K/uL (0.00-0.12); Nucleated RBC % (auto) 0.4 %; Platelet Count 222 K/uL (130-400); RDW Coefficient of Variation 14.6 % (11.5-14.5); RDW Standard Deviation 39.8 fL (36.4-46.3); Red Blood Count 3.53 M/uL (4.20-5.40)
[2023-05-01 07:50] LABS: Basophils # (auto) 0.12 K/uL (0.00-0.20); Basophils % (auto) 0.9 %; Eosinophils # (auto) 0.51 K/uL (0.00-0.50); Eosinophils % (auto) 3.7 %; Immature Granulocytes # (auto) 0.07 K/uL (0.01-0.20); Immature Granulocytes % (auto) 0.5 %; Lymphocytes # (auto) 2.28 K/uL (1.20-3.40); Lymphocytes % (auto) 16.4 %; Monocytes # (auto) 1.09 K/uL (0.11-0.59); Monocytes % (auto) 7.8 %; Neutrophils # (auto) 9.83 K/uL (1.40-6.50); Neutrophils % (auto) 70.7 %; Polychromasia 1+; Target Cells 3+
[2023-05-01] MEDS: FERROUS SULFATE 325 MG TAB PO SCH (08:15)
[2023-05-01] MEDS: FOLIC ACID 1 MG TAB PO SCH (08:15)
[2023-05-01] MEDS: ASPIRIN 81 MG CHEW PO SCH (08:15)
[2023-05-01] MEDS: PRENATAL VITAMIN 1 TAB PO SCH (08:18)
[2023-05-01] MEDS ORDERED: IRON PO SCH (09:00)
[2023-05-01] MEDS ORDERED: PNV CALCIUM IRON FOLIC ACID PO SCH (09:00)
[2023-05-01] MEDS ORDERED: [UNRECOGNIZED DRUG - OTHER] PO SCH (09:00)
[2023-05-01] MEDS ORDERED: NON-FORMULARY MEDICATION (Ferrous Sulfate 325 mg (65 mg iron) Tablet) PO SCH (09:00)
[2023-05-01] MEDS ORDERED: PROMETHAZINE HCL 25 MG in SODIUM CHLORIDE 0.9% 50 ML IV PRN (11:30)
[2023-05-01] MEDS ORDERED: diphenhydrAMINE Capsule 25 MG CAP PO PRN (11:30)
[2023-05-01] MEDS ORDERED: diphenhydrAMINE 50 MG/ML VIAL IV PRN (11:30)
[2023-05-01] MEDS ORDERED: ONDANSETRON INJ 2 MG/ML 2 ML VIAL IV PRN (11:30)
[2023-05-01] MEDS: oxyCODONE/ACETAMINOPHEN 5mg/325mg TAB PO PRN ×3 (13:07→21:46)
[2023-05-01] MEDS: IBUPROFEN 600 MG TAB PO PRN ×3 (13:07→21:46)
[2023-05-01] MEDS ORDERED: bisacodyL 5 MG TABEC PO SCH (20:00)
[2023-05-02] MEDS: IBUPROFEN 600 MG TAB PO PRN ×4 (04:54→20:49)
[2023-05-02] MEDS: oxyCODONE/ACETAMINOPHEN 5mg/325mg TAB PO PRN ×4 (04:54→20:50)
--- NOTE | 2023-05-02 06:18 | Obstetrical Progress Note ---
Date of Service <Josephine Ramirez MD - Last Filed: 05/02/23 06:54> May 02, 2023 Assessment & Plan <Josephine Ramirez MD - Last Filed: 05/02/23 06:54> (1) Encounter for assessment: Plan Patient with the above mentioned history and findings was evaluated at bedside and found awake, alert, oriented in all spheres, afebrile, and in no acute distress. Vital signs showed no fever and blood pressures remained stable Her blood type is O pos and most recent hemoglobin at 10.0 g/dL. She is GBS negative and rubella immune. Overall, patient is doing well clinically. Abdominal binder will be ordered to help with patient's pain. Will continue routine pp care. All questions were answered. <Delfina Carr MD - Last Filed: 05/02/23 07:38> (1) Encounter for assessment: Subjective <Josephine Ramirez MD - Last Filed: 05/02/23 06:54> Lima is a 32 y/o female who is POD #2 following primary delivery at 38 0/7 weeks due to intolerance to labor. She reports feeling well overall this morning. Refers moderate abdominal cramping & 8/10 pain after taking Motrin and Percocet recently. She says she can handle the pain since she's sleeping. Voiding spontaneously. Tolerating meals overnight. Has stood up and walked some without lightheadedness or dizziness. She is passing gas but has not yet had a bowel movement. Has some persistent lochia with some improvement this morning. Currently . Constitutional: no fever, no chills or no sweats Denies shortness of breath or difficulty breathing. Cardiovascular: no chest pain or no palpitations Breast: no breast pain Genitourinary (female): no dysuria Neurologic: no headache(s) Denies changes in vision. Physical Exam <Josephine Ramirez MD - Last Filed: 05/02/23 06:54> General: Alert. Oriented to person, time, and place. Afebrile. No acute distress. Eyes: pupils equal and reactive to light bilaterally, extraocular movements intact. Cardiac: Regular rate and rhythm, no murmurs/rubs/gallops. Respiratory: Clear to auscultation bilaterally a/p, no wheezes/rales/rhonchi. No increased work of breathing. Symmetrical chest rise. No respiratory distress. Abdomen: Soft, nontender, nondistended. Bowel sounds present. Low transverse surgical scar clean, without surrounding erythema or suppuration, and healing well. Uterus: Uterine fundus firm, tender, and palpable below umbilicus. Lower Extremities: Mild bilateral swelling. No deep calf pain. Lico's negative bilaterally. Psych: Euthymic affect. Mood and affect congruence. Regular speech rate and content. Results & Data <Josephine Ramirez MD - Last Filed: 05/02/23 06:54> Vital Signs (Past 12 Hours) Vital Signs Temp Pulse Resp BP 05/01/23 23:45 36.7 C 85 18 106/68 05/01/23 20:15 36.4 C L 86 18 99/63 L Supervising Physician <Delfina Carr MD - Last Filed: 05/02/23 07:38> Co-Signing Physician Notes Resident Physician Supervision Note: I interviewed and examined the patient. Discussed with Dr. Ramirez and agree with findings and plan as documented in the note. Any exceptions or clarifications a re listed here: POD2 s/p pLTCS. Reports some difficulty w/ pain, meds help but also make her sleepy. VSS, incision c/d/i. Discussed abd binder as well, continue routine pp care Documented By: Delfina Carr MD Resident Activity Tracking <Josephine Ramirez MD - Last Filed: 05/02/23 06:54> Resident Involvement: Resident Care Provided Care Provided: OB Delivery
[2023-05-02] MEDS: PRENATAL VITAMIN 1 TAB PO SCH (08:33)
[2023-05-02] MEDS: DOCUSATE SODIUM 100 MG CAP PO SCH ×2 (08:33→20:49)
[2023-05-02] MEDS: SIMETHICONE 80 MG CHEW PO SCH ×4 (08:33→20:49)
[2023-05-02] MEDS: FERROUS SULFATE 325 MG TAB PO SCH (08:33)
[2023-05-02] MEDS: FOLIC ACID 1 MG TAB PO SCH (08:34)
[2023-05-02] MEDS: ASPIRIN 81 MG CHEW PO SCH (08:34)
[2023-05-02] MEDS ORDERED: bisacodyL 10 MG SUPP PR PRN (18:41)
[2023-05-02] MEDS: LACTATED RINGER'S 1,000 ML IV SCH ×2 (22:10→22:11)
[2023-05-03] MEDS: oxyCODONE/ACETAMINOPHEN 5mg/325mg TAB PO PRN ×3 (03:11→12:54)
[2023-05-03] MEDS: IBUPROFEN 600 MG TAB PO PRN ×3 (03:12→12:55)
--- NOTE | 2023-05-03 07:00 | Obstetrical Progress Note ---
Date of Service <Josephine Ramirez MD - Last Filed: 05/03/23 08:28> May 03, 2023 Assessment & Plan <Joesphine Ramirez MD - Last Filed: 05/03/23 08:28> (1) Encounter for assessment: Plan Patient with the above mentioned history and findings was evaluated at bedside and found awake, alert, oriented in all spheres, afebrile, and in no acute distress. Vital signs showed no fever and blood pressures remained stable Her blood type is O pos and most recent hemoglobin at 10.0 g/dL. She is GBS negative and rubella immune. Overall, patient is doing well clinically and meeting the desired milestones. Since she is clinically and hemodynamically stable, will discharge today. Given her lack of fevers, as well as her pain which seems to improve with positioning and get worse with exertion, it seems to be muscular in origin. She was counseled of this and was advised that should her symptoms get worse or if she develops a fever accompanying this pain, she should contact the office for evaluation. Otherwise, she was counseled to make an appointment with her OB in 6 weeks for her routine pp evaluation. Discharge instructions discussed. All questions answered. <Lou Srivastava DO - Last Filed: 05/03/23 08:50> (1) Encounter for assessment: Subjective <Josephine Ramirez MD - Last Filed: 05/03/23 08:28> Lima is a 32 y/o female who is POD #3 following primary delivery at 38 0/7 weeks due to intolerance to labor. She reports feeling well overall this morning. Refers moderate abdominal cramping & 6/10 pain after using Motrin and Percocet. She describes her pain is more in her abdominal midline around the umbilical area, and that it gets worse with movement and improves with some changes in position. Voiding spontaneously. Tolerating meals overnight. Has stood up and walked some without lightheadedness or dizziness. She is passing gas but has not yet had a bowel movement. Has some persistent lochia with some improvement this morning. Currently . Constitutional: no fever, no chills or no sweats Denies shortness of breath or difficulty breathing. Cardiovascular: no chest pain or no palpitations Breast: no breast pain Genitourinary (female): no dysuria Neurologic: no headache(s) Denies changes in vision. Physical Exam <Josephine Ramirez MD - Last Filed: 05/03/23 08:28> General: Alert. Oriented to person, time, and place. Afebrile. No acute distress. Eyes: pupils equal and reactive to light bilaterally, extraocular movements intact. Cardiac: Regular rate and rhythm, no murmurs/rubs/gallops. Respiratory: Clear to auscultation bilaterally a/p, no wheezes/rales/rhonchi. No increased work of breathing. Symmetrical chest rise. No respiratory distress. Abdomen: Soft, tender in periumbilical region, nondistended. Bowel sounds present. Low transverse surgical scar clean, without surrounding erythema or suppuration, and healing well. Uterus: Uterine fundus firm, tender, and palpable below umbilicus. Lower Extremities: Mild bilateral swelling. No deep calf pain. Lico's negative bilaterally. Psych: Euthymic affect. Mood and affect congruence. Regular speech rate and content. Results & Data <Josephine Ramirez MD - Last Filed: 05/03/23 08:28> Vital Signs (Past 12 Hours) Vital Signs Temp Pulse Resp BP Pulse Ox O2 Del Method 05/02/23 23:06 36.7 C 89 18 105/66 95 Room Air Supervising Physician <Lou Srivastava DO - Last Filed: 05/03/23 08:50> Co-Signing Physician Notes Resident Physician Supervision Note: I was present with Dr. Ramirez during the history and exam. I discussed the case with the resident and agree with the findings and plan as documented in the note. Any exceptions or clarifications are listed here: POD#3 doing well. Reviewed DC instructions. Incision CDI. Rx Percocet #20 tabs sent to [facility]. Documented By: Lou Srivastava DO Resident Activity Tracking <Josephine Ramirez MD - Last Filed: 05/03/23 08:28> Resident Involvement: Resident Care Provided Care Provided: OB Delivery
[2023-05-03] MEDS: DOCUSATE SODIUM 100 MG CAP PO SCH (08:45)
[2023-05-03] MEDS: PRENATAL VITAMIN 1 TAB PO SCH (08:45)
[2023-05-03] MEDS: FOLIC ACID 1 MG TAB PO SCH (08:47)
[2023-05-03] MEDS: FERROUS SULFATE 325 MG TAB PO SCH (08:47)
[2023-05-03] MEDS: ASPIRIN 81 MG CHEW PO SCH (08:48)
[2023-05-03] MEDS: SIMETHICONE 80 MG CHEW PO SCH ×2 (08:49→12:54)
--- NOTE | 2023-05-06 15:55 | Discharge Summary ---
Date of Service May 06, 2023 Admission HPI Per Admitting Provider Lima is a 32 y/o female currently at [facility] 38 0/7 [facility] with an PEDRO 05/14/23 as determined by certain LMP who is here for IOL due to hx of Sickle Cell anemia and IUGR. Mclain balloon placed yesterday, which has not fallen out yet. (+) movement (-) contractions (-) fluid loss (-) bloody show External FHT and external uterine monitors used * Category 1 tracing * Moderate FHT variability. Had regular appointments since 1st trimester. OB Labs: Blood Type O Positive 10/16/22 Antibody Screen NEGATIVE 10/16/22 Hemoglobin 10.6 g/dl (12.0-16.0) L 04/12/23 Hematocrit 28.8 % (37.0-47.0) L 04/12/23 Mean Corpuscular Volume 72.2 fL (80.0-100.0) L 11/24/22 Platelet Count 329 K/uL (130-400) 11/24/22 Rubella IgG Antibody Immune (Immune) 10/16/22 Rapid Plasma Reagin Nonreactive (Nonreactive) 10/16/22 Hepatitis B Surface Antigen. NON-REACTIVE (NON-REACTIVE) 10/16/22 Hepatitis C Antibody (EIA) NON-REACTIVE (NON-REACTIVE) 10/16/22 HIV (1&2) Ag and Ab Confirmation NON-REACTIVE (NON-REACTIVE) 10/16/22 Glucose 1 Hour 50 gm Load 85 mg/dl (70-130) 02/19/23 Maternal Serum Alpha Fetoprotein 35.3 ng/mL 11/27/22 OB Optional Labs: Hemoglobin Electrophoresis Interp see note 09/09/18 Chlamydia trachomatis RNA Not Detected (NotDetected) 10/16/22 Neisseria gonorrhoeae RNA Not Detected (NotDetected) 10/16/22 Alpha Fetoprotein Triple Screen SEE NOTE 11/27/22 Labs Reviewed: cfdna-low risk Admission Exam (Per Admitting) Genitourinary OB Exam Abdomen: + vertex (confirmed by bedside ultrasound), + estimated weight (5-6 pounds) and + irregular contractions OB Exam Monitor Tracing: + external FHT monitor used, + external uterine monitor used, + category I, + normal FHT variability and + variable decelerations (one mild variable noted) + isolated Discharge Data Consultations 04/30/23 08:06 Consult Anesthesiology Stat 04/30/23 16:48 Consult Anesthesiology Stat Procedures Performed Operation Date: 04/30/23 17:45 Actual Procedures p Section in LD delivery of live male child at 1805 - Dafne Mancini MD, [facility] Course (1) Encounter for assessment: Plan Patient with the above mentioned history and findings was evaluated at bedside and found awake, alert, oriented in all spheres, afebrile, and in no acute dist ress. Vital signs showed no fever and blood pressures remained stable Her blood type is O pos and most recent hemoglobin at 10.0 g/dL. She is GBS negative and rubella immune. Overall, patient is doing well clinically and meeting the desired milestones. Since she is clinically and hemodynamically stable, will discharge today. Given her lack of fevers, as well as her pain which seems to improve with positioning and get worse with exertion, it seems to be muscular in origin. She was counseled of this and was advised that should her symptoms get worse or if she develops a fever accompanying this pain, she should contact the office for evaluation. Otherwise, she was counseled to make an appointment with her OB in 6 weeks for her routine pp evaluation. Discharge instructions discussed. All que stions answered. Discharge Plan Discharge Items Patient Disposition: Home - Self-Care Reason For Visit: INDUCTION Discharge Diagnosis: s/p primary Activity: Per Instructions section Non-emergency contact: Primary Care Provider and [employer] Call non-emergency contact if: your symptoms worsen and your temperature is above 101 Follow-up/Referrals: Nayeli Headley PA-C [Primary Care Provider] - Diet: Regular Addtl Attending Provider Instructions: ACTIVITY RECOMMENDATIONS: * Gradual return to full activity over the next 2-3 weeks. * No lifting - nothing heavier than baby over the next 2-3 weeks. * Do not engage in vigorous exercise, sexual activity or sports until cleared by your physician. * Do not drive or operate any motorized equipment until cleared by your physician. * You may shower/bathe daily. MEDICATIONS: For discomfort or pain, you may use Acetaminophen (Tylenol), Ibuprofen (Advil), or Naproxen (Aleve) following the package directions. For constipation you may use Colace following the package directions. BREAST CARE: If you are not breast feeding: * Wear a supportive bra 24 hours a day for one to two weeks. * Avoid stimulating your breasts and nipples as much as possible during the first few weeks after delivery. * When taking a shower, have the warm water hit your back, not breasts. * When your breasts feel full, apply ice packs. Usually three to four times a day helps ease the discomfort. * Take a mild pain medication (Tylenol / Motrin) when you are uncomfortable. If breast feeding: * Use breast milk to lubricate nipples. Lansinoh cream may be used for sore nipples. You do not need to remove cream prior to breast feeding. If using a different brand of cream, check the label for directions regarding removal of cream prior to nursing. * Wear a supportive bra. * If having problems with breasts or breast feeding, call a hadoop consultant or your health care provider. SPECIAL CARE INSTRUCTIONS: When you are discharged from the hospital, it is important for you to follow the instructions listed below: * During the first week at home, you should be able to care for yourself and your baby. In addition, the usual light household activities are encouraged. * Limit your activities to the way you feel. Do not try to clean the house or move furniture. Be sensible. * If you actively engage in sports and have done so up until the time of your delivery, you may resume these activities as soon as you feel able. This may take up to one month or even longer. Use good judgment. * Continue to take your vitamins for at least six weeks after the of your baby. * Your diet need not be limited unless you were on a special diet before your delivery. Breast-feeding mothers need around 2500 calories per day and at least 64-80 ounces of fluid per day (8 to 10 glasses). * You should eat foods from the four major food groups. Crash diets or fad diets are to be avoided. Eating lean meats, fresh fruits and vegetables, low-fat dairy products, high fiber foods and a regular exercise program, will help you get back to your pre- weight without putting your health at risk. * Constipation is sometimes a problem after delivery. Take a mild laxative as needed. If breast feeding, Milk of Magnesia is acceptable to use. You may use a suppository or Fleets enema. * A daily shower or tub bath is suggested. Wash incision daily with warm soapy water and pat dry. It doesn't need to be covered unless drainage is present. * A bloody vaginal discharge will usually continue until around four weeks . A small amount of bleeding may continue for as long as six weeks. Vaginal discharge changes from the bright red bleeding after delivery to pink then brownish and finally yellowish-pink before becoming white and disappearing. * Bleeding may increase with activity. Your first period may come in 4-8 weeks. If you are breast feeding, your period may be delayed even longer. * [place] (sex) can begin whenever both you and your partner feel comfo rtable and do not have any form of genital infection. It is recommended that you wait at least six weeks for internal and external healing to occur. If you have questions, please talk to your health care practitioner. A condom should be used to prevent infection and . * Foreplay, gentle intercourse and lubrication is very important the first several times to prevent pain. A water-based lubricant such as K-Y jelly or Astroglide may be used. * If you have RH negative blood and your baby is RH positive, you will receive RHOGAM by injection prior to discharge. The nurse will give you a card to keep with you that has the date and place that you received RHOGAM after delivery. * During your care, you had a Rubella screen done to check for the presence of rubella antibodies in your blood. If your test was negative, you will receive a Rubella vaccine prior to discharge. This vaccine may cause a fever, soreness at the injection site and flu-like symptoms. If these symptoms persist, notify your health care practitioner. is not advised for one month after a Rubella vaccine. * Verbalizes understanding of car seat law as reviewed with patient nursing. * Car Seat hand-out given and reviewed with patient by nursing. * Shaken baby information reviewed with patient by nursing. Call you doctor if: * Heavy bleeding (saturating several pads an hour) or passing clots the size of your fist. * A fever >101 degrees F (38.3 degrees C) on two occasions four hours apart and/or chills. * Unusual pain in the pelvic or vaginal areas. * Call the doctor for any increased redness, drainage or swelling around the incision and any pain unrelieved by prescribed pain medication. * "Baby Blues" lasting longer than two weeks. If you have any questions or concerns, call your health care practitioner at . FOLLOW UP VISIT: * Please call the office at to schedule a 6 week examination. It is important you keep this appointment. It is important for you to make arrangements for either yearly or twice yearly check-ups thereafter. Pending Studies at Discharge: No Stand-Alone Forms: [facility], Smoking Cessation Medications and DC Order Prescriptions: New (DME) breast pump Device See Rx Instructions .Route Qty: 1 0RF Rx Instructions: As directed oxycodone-acetaminophen [Percocet] 5-325 mg tablet 1 tab PO Q6H PRN (Reason: pain) Qty: 20 0RF Continued folic acid 1 mg tablet 4 mg PO DAILY Qty: 30 8RF aspirin 81 mg tablet,chewable 81 mg PO QAM WesTab Plus 27 mg iron- 1 mg tablet 1 tab PO QAM ferrous sulfate 325 mg (65 mg iron) Tablet 325 mg PO DAILY Discharge Orders: Discharge Order (Routine); Ordered 05/03/23 Ordered By: Lou Denney/Other Patient Handouts: Understanding Blues, DVT in , After a , Understanding Depression, Breastfeed Common Questions Admission Data Admit Date/Time: 04/30/23 07:47 Attending Provider: aDfne German Admit Provider: Dafne German Primary Care Provider: Nayeli Headley Other Providers: Royal Ambrose Other Interventions: Discharge Summary Assessment (RN) Last Done: 05/03/23 10:51 Coding Level of Care Code None Diagnoses Encounter for assessment Z39.2
== END 2023-05-03 17:35 | disposition home or self-care (01) | DRG 788 ==
LOC: 4S1 07:47 → 4E2 21:40

== ENCOUNTER 2023-05-12 02:42 | Inpatient (IN) ==
[2023-05-12] MEDS ORDERED: ACETAMINOPHEN 1,000 MG/100 ML VIAL IV STA (02:59)
[2023-05-12] MEDS ORDERED: SODIUM CHLORIDE 0.9% 1,000 ML IV ONE (03:00)
--- NOTE | 2023-05-12 03:03 | Emergency Department Note ---
History of Present Illness General Chief complaint: Back Injury/Pain Stated complaint: BACK PAIN Time Seen by Provider: 05/12/23 02:50 History of Present Illness Maximum Pain Intensity: 7 This 32-year-old female that had a April 30 presents to the ER complaining of right upper back pain and shortness of breath today. She has sickle cell disease. Patient denies chest pain, fever, chills, cough, congestion, heavy vaginal bleeding, new leg pain or swelling. No history of DVT or PE. She does not smoke. Home Medications Medication Instructions Recorded Confirmed Type aspirin 81 mg chewable tablet 81 mg PO QAM 11/24/22 05/12/23 History vitamin with calcium 1 tab PO QAM 11/24/22 05/12/23 History no.72-iron 27 mg-folic acid 1 mg tablet (WesTab Plus) ferrous sulfate 325 mg (65 mg 325 mg PO DAILY 04/29/23 05/12/23 History iron) tablet breast pump #1 ea 05/02/23 05/12/23 Rx oxycodone-acetaminophen 5 mg-325 1 tab PO Q6H PRN pain #20 tabs 05/03/23 05/12/23 Rx mg tablet (Percocet) folic acid 1 mg tablet 5 mg PO DAILY sickle cell anemia 05/12/23 05/12/23 History Allergies Allergy/AdvReac Type Severity Reaction Status Date / Time pollen extracts Allergy Mild Congested Verified 05/12/23 03:02 Past Med/Surg History Medical History Encounter for assessment Sickle cell anemia IUGR (intrauterine growth restriction) affecting care of mother Family history of diabetes mellitus (DM) 2 brothers with Type II Allergic rhinitis Asthma Use of cannabis used prior to - not used during Vitamin D deficiency Sickle cell anemia Follow [facility] Hematology Chronic anemia Surgical History No pertinent past surgical history Family History Grandmother No problems noted. Denies family history of Ovarian cancer Prostate cancer Myocardial infarction Breast cancer Colorectal cancer Social History Smoking Status: Unknown if ever smoked Second Hand Exposure: No; Do You Dip or Chew Tobacco: No; Tobacco Cessation Education Requested by Patient: No Hx Alcohol Use: No Hx Substance Use: Yes Prescribed Medications: Marijuana Non-Prescribed Medications Comment: prior to Last Used Substance: Unknown Last Used Substance Other:: per patient used prior to Substance Use Type Other:: denied substance use when asked Preferred Language: Yoruba Communication Ability: Effective Chart Writer Required: No Beliefs That Will Affect Care: None marital status: Single marital status details: Dee Dee Malonebreanne NEGRON not involved Current Living Situation: Family Current Living Situation Comment: brother current occupational status: unemployed 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[employer], 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 [employer] Other Information That Helps Us Care for You: No Feels Safe at Home: Yes Safety Concerns: Feels Safe At This Time Dental Care, Regularly: Yes Physical Activity Frequency: Daily Seatbelt Use: always Assistive Devices: Glasses Review of Systems A total of 10 systems reviewed and were otherwise negative Physical Exam Vital Signs Vital Signs - 24 hr 05/12/23 02:48 05/12/23 03:43 05/12/23 03:44 Temperature 36.3 C L Temperature Source Temporal Artery Scan Pulse Rate 88 85 87 Pulse Rate [Apical] Pulse Rate from SpO2 Sensor 86 Respiratory Rate 18 19 Respiratory Effort / Characteristics Non-Labored Respiratory Depth Normal Blood Pressure 127/82 Blood Pressure [Right Arm] Blood Pressure Mean 97 Blood Pressure Mean [Right Arm] Pulse Oximetry 97 93 Oxygen Delivery Method Room Air Sepsis Recent Fever Within 48 Hours No Sepsis New/Unexplained Change in Mental Status No Sepsis Action Taken by Nursing No Action Required 05/12/23 04:00 05/12/23 04:20 05/12/23 04:20 Temperature Temperature Source Pulse Rate 77 Pulse Rate [Apical] 73 Pulse Rate from SpO2 Sensor 77 Respiratory Rate 21 26 H Respiratory Effort / Characteristics Non-Labored Spontaneous Respiratory Depth Normal Blood Pressure 129/79 Blood Pressure [Right Arm] 129/79 Blood Pressure Mean 95 Blood Pressure Mean [Right Arm] 95 Pulse Oximetry 94 93 93 Oxygen Delivery Method Room Air Room Air Sepsis Recent Fever Within 48 Hours Sepsis New/Unexplained Change in Mental Status Sepsis Action Taken by Nursing 05/12/23 04:30 05/12/23 05:00 05/12/23 05:30 Temperature Temperature Source Pulse Rate 78 71 70 Pulse Rate [Apical] Pulse Rate from SpO2 Sensor 79 72 70 Respiratory Rate 16 26 H 17 Respiratory Effort / Characteristics Respiratory Depth Blood Pressure 123/72 129/78 128/78 Blood Pressure [Right Arm] Blood Pressure Mean 89 95 94 Blood Pressure Mean [Right Arm] Pulse Oximetry 91 93 92 Oxygen Delivery Method Sepsis Recent Fever Within 48 Hours Sepsis New/Unexplained Change in Mental Status Sepsis Action Taken by Nursing 05/12/23 06:00 05/12/23 06:00 05/12/23 06:30 Temperature Temperature Source Pulse Rate 78 71 Pulse Rate [Apical] Pulse Rate from SpO2 Sensor 75 73 Respiratory Rate 18 17 Respiratory Effort / Characteristics Respiratory Depth Blood Pressure 133/83 Blood Pressure [Right Arm] Blood Pressure Mean 102 Blood Pressure Mean [Right Arm] Pulse Oximetry 93 93 Oxygen Delivery Method Sepsis Recent Fever Within 48 Hours Sepsis New/Unexplained Change in Mental Status Sepsis Action Taken by Nursing 05/12/23 06:30 05/12/23 07:00 05/12/23 07:00 Temperature Temperature Source Pulse Rate 78 Pulse Rate [Apical] Pulse Rate from SpO2 Sensor 77 Respiratory Rate 22 Respiratory Effort / Characteristics Respiratory Depth Blood Pressure 132/77 133/79 Blood Pressure [Right Arm] Blood Pressure Mean 94 93 Blood Pressure Mean [Right Arm] Pulse Oximetry 92 Oxygen Delivery Method Sepsis Recent Fever Within 48 Hours Sepsis New/Unexplained Change in Mental Status Sepsis Action Taken by Nursing 05/12/23 07:22 Temperature Temperature Source Pulse Rate 76 Pulse Rate [Apical] Pulse Rate from SpO2 Sensor 78 Respiratory Rate 21 Respiratory Effort / Characteristics Respiratory Depth Blood Pressure Blood Pressure [Right Arm] Blood Pressure Mean Blood Pressure Mean [Right Arm] Pulse Oximetry 94 Oxygen Delivery Method Sepsis Recent Fever Within 48 Hours Sepsis New/Unexplained Change in Mental Status Sepsis Action Taken by Nursing VITALS: Vitals are noted on the nurse's note and reviewed by myself. Vital signs stable. GENERAL: Pleasant female, in no acute distress, nondiaphoretic, well-developed well-nourished. SKIN: The skin was without rashes, erythema, or bruising. There is no tenting of the skin. Capillary reflex less than 2 seconds. HEAD: Normocephalic atraumatic. EARS: External auditory canals clear, EYES: Pupils equal round and reactive to light and accommodation. Conjunctivae without injection, sclerae without icterus. Extraocular movements intact. NOSE: Patent, turbinates without inflammation or discharge. MOUTH: Mucous membranes moist. Pharynx without erythema or exudate. Uvula midline. Airway patent. Tongue does not deviate. NECK: Supple without nuchal rigidity. No lymphadenopathy. No thyromegaly. Cervical spine is nontender. No JVD. HEART: Regular rate and rhythm LUNGS: Clear to auscultation bilaterally without wheezes, rales or rhonchi. No retractions or accessory muscle use. ABDOMEN: Positive bowel sounds x 4. Normal tympanic percussion. Soft, nontender, without masses or organomegaly. Law sign negative. No guarding or rebound tenderness. No CVA tenderness MUSCULOSKELETAL: No muscle atrophy, erythema, noted. +1 pitting edema up to the mid tib-fib bilaterally unchanged per patient. Back nontender to palpation. No signs of shingles. NEURO: Patient was alert and oriented to person place and time. Normal sensation to light and sharp touch. No focal neurological deficits. Course Administered Medications Acetaminophen (Acetaminophen 325 Mg Tab) 650 mg PO Q4H PRN PRN Reason: pain/fever Stop: 06/11/23 10:56 Last Admin: 05/12/23 12:26 Dose: 650 mg Documented By: BLAISE Aspirin (Aspirin 81 Mg Chew) 81 mg PO QAM [facility] Stop: 06/11/23 14:29 Last Admin: 05/12/23 18:49 Dose: 81 mg Documented By: BLAISE Ferrous Sulfate (Ferrous Sulfate 325 Mg Tab) 325 mg PO DAILY [facility] Stop: 06/11/23 14:29 Last Admin: 05/12/23 19:28 Dose: 325 mg Documented By: BEV Folic Acid (Folic Acid 1 Mg Tab) 5 mg PO DAILY [facility] Stop: 06/11/23 10:56 Last Admin: 05/12/23 12:23 Dose: 5 mg Documented By: BLAISE Oxycodone/Acetaminophen (Oxycodone/Acetaminophen 5mg/325mg Tab) 1 tab PO Q6H PRN PRN Reason: pain Stop: 05/26/23 10:56 Last Admin: 05/12/23 16:28 Dose: 1 tab Documented By: BLAISE Discontinued Medications Furosemide (Furosemide Inj 20 Mg/2 Ml Vial) 20 mg IV ONE ONE Stop: 05/12/23 17:01 Last Admin: 05/12/23 18:49 Dose: 20 mg Documented By: BLAISE Acetaminophen (Ofirmev) 1,000 mg in 100 mls @ 400 mls/hr IV NOW STA Stop: 05/12/23 03:13 Last Infusion: 05/12/23 04:44 Dose: Infused Documented By: Admin: 05/12/23 03:45 Dose: 400 mls/hr Documented By: ITZEL Sodium Chloride (Nss) 1,000 mls @ 999 mls/hr IV .Q1H1M ONE Stop: 05/12/23 04:00 Last Infusion: 05/12/23 04:49 Dose: Infused Documented By: Admin: 05/12/23 03:45 Dose: 999 mls/hr Documented By: ITZEL Ioversol (Optiray 320 125ml) 120 ml IV ONCE ONE Stop: 05/12/23 03:40 Last Admin: 05/12/23 03:40 Dose: 120 ml Documented By: JOHS Potassium Chloride (Potassium Chloride Crtab 20 Meq Tabcr) 20 meq PO NOW STA Stop: 05/12/23 16:59 Last Admin: 05/12/23 20:37 Dose: 20 meq Documented By: BEV Medical Decision Making Medical Records Attestation: I reviewed the patient's medical records. Home Medications Current Medication List: was personally reviewed by me Laboratory Data Attestation: I reviewed the patient's lab results. 05/12/23 03:07 05/12/23 03:07 Lab Results 05/12/23 05/12/23 05/12/23 Range/Units 03:07 03:21 05:00 WBC 14.30 H (4.8-10.8) K/ul RBC 4.00 L (4.20-5.40) M/uL Hgb 10.5 L (12.0-16.0) g/dl POC Hgb 11.2 L (12.0-16.0) g/dl Hct 28.5 L (37.0-47.0) % POC Hct 33 L (37-47) % MCV 71.3 L (80.0-100.0) fL MCH 26.3 (25.0-34.0) pg MCHC 36.8 H (32.0-36.0) g/dL RDW Std Deviation 40.3 (36.4-46.3) fL RDW Coeff of Aletha 16.1 H (11.5-14.5) % Plt Count 540 H (130-400) K/uL MPV 10.0 (9.4-12.4) fL Reticulocyte % (Auto) 6.6 H (0.5-2.0) % Reticulocyte # 0.25 H (0.02-0.10) 10^6/uL Absolute Nucleated RBC 0.10 (0.00-0.12) K/uL Nucleated RBC % (auto) 0.7 % Neutrophils % (Manual) 74 % Lymphocytes % (Manual) 18 % Monocytes % (Manual) 2 % Eosinophils % (Manual) 6 % Neutrophils # (Manual) 10.58 H (1.40-6.50) K/uL Total Absolute Neuts 10.58 H (1.4-6.5) K/uL Lymphocytes # (Manual) 2.57 (1.2-3.4) K/uL Total Abs Lymphocytes 2.57 (1.2-3.4) K/uL Monocytes # (Manual) 0.29 (0.11-0.59) K/uL Eosinophils # (Manual) 0.86 H (0-0.50) K/uL Polychromasia 3+ Hypochromasia Present Target Cells 3+ Tear Drop Cells 1+ PT 10.6 (9.0-12.0) Seconds INR 1.0 (0.9-1.1) APTT 23.6 (21.0-31.0) Seconds PTT Ratio 0.8 POC Sodium 142 (135-144) mmol/L Sodium 140 (136-145) mmol/L POC Potassium 3.9 (3.3-5.0) mmol/L Potassium 3.8 (3.5-5.1) mmol/L POC Chloride 110 (101-112) mmol/L Chloride 111 H (98-107) mmol/L Carbon Dioxide 24 (21-32) mmol/L POC Total CO2 21 L (24-31) mmol/L Anion Gap 5 (3-11) POC Anion Gap 15.0 L (16-25) mmol/L POC BUN 4 L (7-18) mg/dl BUN 6 (6-23) mg/dl Creatinine 0.78 (0.6-1.2) mg/dl POC Creatinine 0.8 (0.6-1.3) mg/dl Est Cr Clr Drug Dosing 132.1 ml/min Est GFR ( Amer) 118.2 ml/min Est GFR (Non-Af Amer) 102.0 ml/min BUN/Creatinine Ratio 7.7 L (10-20) Glucose 95 (70-99(Fasting)) mg/dl POC Glucose (other) 100 H (70-99) mg/dl Calcium 9.3 (8.6-10.3) mg/dl POC Ioniz Calcium Shama 1.25 (1.12-1.32) mmol/l Magnesium 2.1 (1.7-2.4) mg/dl Total Bilirubin 0.8 (0.2-1.0) mg/dl AST 19 (13-39) U/L ALT 12 (7-52) U/L Alkaline Phosphatase 100 (34-104) U/L Troponin I High Sens 4.2 7.3 (0-14) pg/ml B-Natriuretic Peptide 82 (0-100) pg/ml Total Protein 7.0 (6.0-8.3) gm/dl Albumin 3.6 (3.4-5.0) gm/dl Globulin 3.4 (2.5-4.0) gm/dl Albumin/Globulin Ratio 1.1 (0.9-2) Lipase 14 (11-82) U/L Procalcitonin < 0.05 (0-0.5) ng/ml Imaging Data Attestation: I personally reviewed and interpreted this imaging study as follows: Radiologist's Impression: Chest CTA 05/12/23 03:23 Exam(s): CTA CHEST IV Amt: 120 ml EXAM: CT Angiography Chest With Intravenous Contrast CLINICAL HISTORY: Reason for exam: PE, SSD, recent delivery. TECHNIQUE: Axial computed tomographic angiography images of the chest with intravenous contrast. CTDI is 42.39 mGy and DLP is 799.1 mGy-cm. Automated exposure control was utilized for the study. A dose lowering technique was utilized adhering to the principles of ALARA. MIP reconstructed images were created and reviewed. COMPARISON: No relevant prior studies available. FINDINGS: Pulmonary arteries: Unremarkable. No pulmonary embolism. Aorta: No acute findings. No thoracic aortic aneurysm. Lungs: Unremarkable. No mass. No consolidation. Pleural space: There is multisegmental atelectatic changes posterior inferior bilateral lower lobes. Small bilateral pleural effusions as well. No pneumothorax. Heart: Unremarkable. No cardiomegaly. No significant pericardial effusion. No evidence of RV dysfunction. Bones/joints: No acute fracture. No dislocation. Soft tissues: Unremarkable. Lymph nodes: Unremarkable. No enlarged lymph nodes. IMPRESSION: Bilateral pleural effusions and atelectasis as described, no pulmonary emboli seen. Electronically signed by: Cedric Smith MD 05/12/23 07:01 AM MDM Narrative Prior records/ancillary studies reviewed. Triage Nursing notes reviewed. Additional history obtained from the nursing. The patient's history was concerning for respiratory difficulties. Differential diagnosis: Etiologies such as infections, reactive airway disease, pneumonia, pneumothorax, COPD, CHF, cardiac ischemia, pulmonary embolism, musculoskeletal, gastrointestinal, as well as others were entertained. Physical examination: As above. ER treatment provided: An order was placed for continuous cardiac monitoring. The monitor shows a rate of 60-100 with a sinus rhythm per my interpretation. Tylenol, IV fluids were ordered On reassessment the patient felt better. Diagnostic interpretation by me: The electrocardiogram was ordered for SOB. ECG: Normal sinus, normal intervals, Q-wave in lead III, no acute ST-T wave changes. Rate of 79. Impression normal sinus rhythm Q-wave in lead III independent interpreted by myself I think arrhythmia is unlikely. EKG shows normal sinus rhythm with no interval abnormalities such as QT prolongation or WPW. There are no findings to suggest Brugada syndrome. Cardiac monitoring in the emergency department reveals no tachycardic or bradycardic dysrhythmia. Hypertrophic cardiomyopathy was considered but there are no clear historical elements pointing toward this. EKG is not suggestive. The QRS voltage is not extremely large The labs Independently Interpreted by myself revealed 2 negative troponins, stable anemia, mildly elevated retic count Normal LFTs, elevated platelet count BNP 82 Imaging studies: Chest x-ray shows pleural effusions per my independent interpretation CTA of the chest was read by radiology and independently reviewed by myself and concerning for pleural effusions. No PE. HEART SCORE: Hx: high/mod/low suspicion: 0 ECG: ST depression/nonspecific changes/normal: 0 Age: Greater than 65/45-64/less than 45: 0 Risk factors: (Hypertension, hyperlipidemia, diabetes, coronary disease, tobacco use, cocaine use): 0 Troponin: Greater than 2 times normal limits/1-2 times normal limits/normal: 0 Total: 0 Consultation: A consultation was placed with the hospitalist. The case was discussed and diagnostics were reviewed. The patient was evaluated in the ER for further treatment. I consulted radiology, Dr. Last to review the chest CT and states he is concerned the patient has pulmonary edema. This appears to be consistent with sickle cell patient with new pleural effusions who is short of breath concerning for pulmonary edema. Pulse ox has been in the low 90s on room air. 2 negative troponins. Nonischemic EKG. Normal BNP. Stable H&H. Medicine was consulted and the case was discussed. Patient be admitted to the medical service for further evaluation and work-up.. By the evaluation outlined above emergent etiologies such as cardiac ischemia, pulmonary embolism, reactive airway disease, pneumonia, pneumothorax, musculoskeletal, serious bacterial infections, as well as others were deemed relatively unlikely. The pt informed about the findings as listed above. All questions were answered and pleased with the treatment. The chart was completed utilizing [employer] Speech voice recognition software. Grammatical errors, random word insertions, pronoun errors, and incomplete sentences are an occassional consequence of this system due to software limitations, ambient noise, and hardware issues. Any formal questions or concerns about the content, text, or information contained within the body of this dictation should be directly addressed to the physician pet care assistant for clarification. Impression & Plan Acute dyspnea, Sickle cell anemia, Pleural effusion, anemia Discharge Plan Visit Data Chief Complaint: Back Injury/Pain Stated Complaint: BACK PAIN ED Provider: Rose Cormier ED Midlevel Provider: Aretha Felipe Discharge Problem: Acute dyspnea, Sickle cell anemia, Pleural effusion, anemia Patient Disposition: Admitted As Inpatient Condition: Good Discharge Instructions Interventions: ED Discharge Assessment Last Done: 05/12/23 10:38
[2023-05-12 03:33] LABS: iSTAT Creatinine 0.8 mg/dl (0.6-1.3); iSTAT Hemoglobin 11.2 g/dl (12.0-16.0); iSTAT Ionized Calcium 1.25 mmol/l (1.12-1.32); iSTAT Potassium 3.9 mmol/L (3.3-5.0)
[2023-05-12] MEDS ORDERED: OPTIRAY 320 125ml IV ONE (03:39)
[2023-05-12 03:46] LABS: Albumin Globulin Ratio 1.1 (0.9-2); Albumin Level 3.6 gm/dl (3.4-5.0); BUN Creatinine Ratio 7.7 (10-20); Bilirubin,Total 0.8 mg/dl (0.2-1.0); Calcium 9.3 mg/dl (8.6-10.3); Creatinine Clr Calc Pharmacy 132.1 ml/min; Est GFR (African American) 118.2 ml/min; Globulin 3.4 gm/dl (2.5-4.0); Magnesium 2.1 mg/dl (1.7-2.4); Potassium 3.8 mmol/L (3.5-5.1)
[2023-05-12 03:53] LABS: Troponin I High Sensitivity 4.2 pg/ml (0-14)
[2023-05-12 04:09] LABS: Partial Thromboplastin Ratio 0.8; Partial Thromboplastin Time 23.6 Seconds (21.0-31.0); Prothrombin Time 10.6 Seconds (9.0-12.0)
[2023-05-12 05:18] LABS: Hematocrit (blood only) 28.5 % (37.0-47.0); Hemoglobin 10.5 g/dl (12.0-16.0); Mean Corpuscular Hemoglobin 26.3 pg (25.0-34.0); Mean Corpuscular Hgb Conc 36.8 g/dL (32.0-36.0); Mean Corpuscular Volume 71.3 fL (80.0-100.0); Nucleated RBC % (auto) 0.7 %; Platelet Count 540 K/uL (130-400); RDW Coefficient of Variation 16.1 % (11.5-14.5); RDW Standard Deviation 40.3 fL (36.4-46.3)
[2023-05-12 05:31] LABS: Hypochromasia Present; Polychromasia 3+; Reticulocyte % 6.6 % (0.5-2.0); Reticulocytes # 0.25 10^6/uL (0.02-0.10); Target Cells 3+; Tear Drop Cells 1+
[2023-05-12 06:01] LABS: ALC (manual) 2.57 K/uL (1.2-3.4); ANC (manual) 10.58 K/uL (1.4-6.5); Eosinophils # (manual) 0.86 K/uL (0-0.50); Eosinophils % (manual) 6 %; Lymphocytes # (manual) 2.57 K/uL (1.2-3.4); Lymphocytes % (manual) 18 %; Monocytes # (manual) 0.29 K/uL (0.11-0.59); Monocytes % (manual) 2 %; Neutrophils # (manual) 10.58 K/uL (1.40-6.50); Neutrophils % (manual) 74 %
--- NOTE | 2023-05-12 07:02 | CT Scan Report ---
Exam(s): CTA CHEST IV Amt: 120 ml EXAM: CT Angiography Chest With Intravenous Contrast CLINICAL HISTORY: Reason for exam: PE, SSD, recent delivery. TECHNIQUE: Axial computed tomographic angiography images of the chest with intravenous contrast. CTDI is 42.39 mGy and DLP is 799.1 mGy-cm. Automated exposure control was utilized for the study. A dose lowering technique was utilized adhering to the principles of ALARA. MIP reconstructed images were created and reviewed. COMPARISON: No relevant prior studies available. FINDINGS: Pulmonary arteries: Unremarkable. No pulmonary embolism. Aorta: No acute findings. No thoracic aortic aneurysm. Lungs: Unremarkable. No mass. No consolidation. Pleural space: There is multisegmental atelectatic changes posterior inferior bilateral lower lobes. Small bilateral pleural effusions as well. No pneumothorax. Heart: Unremarkable. No cardiomegaly. No significant pericardial effusion. No evidence of RV dysfunction. Bones/joints: No acute fracture. No dislocation. Soft tissues: Unremarkable. Lymph nodes: Unremarkable. No enlarged lymph nodes. IMPRESSION: Bilateral pleural effusions and atelectasis as described, no pulmonary emboli seen. Electronically signed by: Cedric Smith MD 05/12/23 07:01 AM
--- NOTE | 2023-05-12 07:17 | XRay Report ---
XR chest 1V portable HISTORY: Chest pain, nonspecific COMPARISON: Chest 09/20/2022. FINDINGS: There are low lung volumes. No pneumothorax. The heart is mildly enlarged. There are bibasi lar patchy densities and small bilateral pleural effusions. There is diffuse interstitial/vascular th ickening consistent with mild congestive change. No acute fractures identified. IMPRESSION: 1. Cardiomegaly with mild congestive change and small bilateral pleural effusions. 2. Patchy bibasilar densities may represent atelectasis or pneumonia. ACT 112: Negative or not required by law. Electronically signed by: Guillermo Rock M.D. 05/12/2023 7:16 AM
[2023-05-12] MEDS ORDERED: MAGNESIUM HYDROXIDE SUSP 30 ML UDC PO PRN (10:57)
[2023-05-12] MEDS ORDERED: POLYETHYLENE (MIRALAX) 17 GM PACK PO PRN (10:57)
[2023-05-12] MEDS ORDERED: ALUMINUM/MAGNESIUM SUSP 30 ML UDC PO PRN (10:57)
[2023-05-12] MEDS: FOLIC ACID 1 MG TAB PO SCH (12:23)
[2023-05-12] MEDS: ACETAMINOPHEN 325 MG TAB PO PRN (12:26)
[2023-05-12] MEDS: oxyCODONE/ACETAMINOPHEN 5mg/325mg TAB PO PRN (16:28)
[2023-05-12] MEDS ORDERED: POTASSIUM CHLORIDE CRTAB 20 MEQ TABCR PO STA (16:58)
[2023-05-12] MEDS ORDERED: FUROSEMIDE INJ 20 MG/2 ML VIAL IV ONE (17:00)
--- NOTE | 2023-05-12 17:25 | History & Physical Report ---
Date of Service May 12, 2023 Assessment & Plan (1) Pleural effusion: Plan: Lima has volume overload with bilateral pleural effusions and persistent leg edema twelve days after . This is associated with some dyspnea (endorsed for ED though denied for me) and mild hypoxia. She has had some hypertension in the ED max BPs 150s/90 on a few checks otherwise normal. BNP is low but could be false low because of BMI. Serial troponin has been negative x 2 checks. EKG is notable for some possible q-waves of uncertain significance. The back pain is musculoskeletal in nature and does not appear to be related to the pleural effusions. I am concerned for peripartum cardiomyopathy and TTE was completed this AM with reading pending. Her serum albumin is low normal as expected with . UA is pending but no proteinuria on past UAs and renal function is normal. Liver function is normal. Pleural effusions are symmetric and small, likely related to volume overload and likely to respond to diuresis. There is no evidence of infection based on symptoms or chest CT and empyema would not be bilateral. She does not have history of trimming assembler disease. Sickle chest crisis seems unlikely given chest pain is highly reproducible on palpation of right back muscles, is not severe, hypoxia is mild, and she has never had pain crisis in the past. -will await echo result and start diuresis with lasix 20 mg IV x 1 and potassium replacement -I am not clear on why she has leukocytosis which persists since 04/30-, monitor for fever and focal symptoms. I have reordered UA which has not been collected yet. She denied dysuria, however. I will add on procalcitonin and repeat in AM - chest CT looks atelectatic but pneumonia could cause pleuritic pain if present. -HCTZ under 50 mg daily is considered safe with if gentle diuretic is needed at discharge. 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 -AM BMP and CBC (2) Back pain: Plan: CTA chest was negative for PE, no evidence of ACS and low risk for CAD, unlikely that it is related to pleural effusion and pain is much higher than her effusion which is small/basilar (and symmetric) Right lateral mid back just inferior to the scapula Highly musculoskeletal in character and tender to palpation on exam -analgesics - APAP, percocet if necessary -consider muscle relaxers but no data in (3) Sickle cell anemia: Plan: Hgb stable at 10.6 compared to her range (10-10.8) and mildly lower than her baseline 10-11.3 Wonder if she has sickle C since phenotype seems mild Follows with [facility] hematology Transfusion not indicated I do not think she is in a sickle pain crisis (4) anemia: Plan: As above Continue oral iron supplement, Hgb improved since (5) Lactating mother: Plan: Review medications for safety Reexamine for evidence of mastitis (6) Sleep apnea: Plan: This is listed on chart from 2021 clarify whether on CPAP, hypoventilation likely explains some of the atelectasis and hypoxia (7) Asthma: Plan: Stable not in exacerbation. Not currently taking medications. Plan DVT ppx - start heparinoid if staying more than overnight Continue low dose ASA for preeclampsia prophylaxis Admission and Anticipated Discharge Date Admission Date: May 12, 2023 History of Present Illness Chief Complaint: right mid to upper back pain Primary Care Provider: Nayeli Headley PA-C Lima is a 32-year-old woman with sickle cell anemia who is from a on 04/30. She has a baby boy. Yesterday she developed pain in right mid to upper back. She thought she slept wrong. It did not get better so she thought she should get it checked out. She says it feels like "muscle spasm" Yesterday it hurt when she moved her R arm around but not today. No falls or trauma, no unusual activity except she now is handling an infant. It hurts worse when she breathes deeply. She said she had not been short of breath. No fevers or cough. No history of VTE. She has never had a sickle pain crisis. On records review her anemia is fairly mild but she says she has SCA not sickle trait. Anemia christopher and is a little worse than baseline but stable today and slightly increased since discharge. She is taking iron supp. She had severe leg swelling with , still has prominent bilateral LE edema but has been slowly improving. As part of ED workup she had CTA chest which was notable for small bilateral pleural effusions. She was stable throughout the day but this afternoon had desat to 87% on room air that resolved to low 90s on 1-2L oxygen. She has been taking daily aspirin peripartum to prevent preeclampsia, OB told her to stay on this awhile. She is generally doing well, had some breast "lumps" last week that resolved with the nursing, no breast pain or inflammation now. No N/V/D. No dysuria. No rashes. Allergies Allergy/AdvReac Type Severity Reaction Status Date / Time pollen extracts Allergy Mild Congested Verified 05/12/23 03:02 Home Medications Medication Instructions Recorded Confirmed Type aspirin 81 mg chewable tablet 81 mg PO QAM 11/24/22 05/12/23 History vitamin with calcium 1 tab PO QAM 11/24/22 05/12/23 History no.72-iron 27 mg-folic acid 1 mg tablet (WesTab Plus) ferrous sulfate 325 mg (65 mg 325 mg PO DAILY 04/29/23 05/12/23 History iron) tablet breast pump #1 ea 05/02/23 05/12/23 Rx oxycodone-acetaminophen 5 mg-325 1 tab PO Q6H PRN pain #20 tabs 05/03/23 05/12/23 Rx mg tablet (Percocet) folic acid 1 mg tablet 5 mg PO DAILY sickle cell anemia 05/12/23 05/12/23 History Past Med/Surg History Medical History Encounter for assessment Sickle cell anemia IUGR (intrauterine growth restriction) affecting care of mother Family history of diabetes mellitus (DM) 2 brothers with Type II Allergic rhinitis Asthma Use of cannabis used prior to - not used during Vitamin D deficiency Sickle cell anemia Follow [facility] Hematology Chronic anemia Surgical History No pertinent past surgical history Family History Grandmother No problems noted. Denies family history of Ovarian cancer Prostate cancer Myocardial infarction Breast cancer Colorectal cancer Social History Smoking Status: Unknown if ever smoked Second Hand Exposure: No; Do You Dip or Chew Tobacco: No; Tobacco Cessation Education Requested by Patient: No Hx Alcohol Use: No Hx Substance Use: Yes Prescribed Medications: Marijuana Non-Prescribed Medications Comment: prior to Last Used Substance: Unknown Last Used Substance Other:: per patient used prior to Substance Use Type Other:: denied substance use when asked Preferred Language: Citizen Of [place] Communication Ability: Effective Paperhanger Pipe Required: No Beliefs That Will Affect Care: None marital status: Single marital status details: Dee Dee NEGRON not involved Current Living Situation: Family Current Living Situation Comment: brother current occupational status: unemployed 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[employer], 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 [employer] Other Information That Helps Us Care for You: No Feels Safe at Home: Yes Safety Concerns: Feels Safe At This Time Dental Care, Regularly: Yes Physical Activity Frequency: Daily Seatbelt Use: always Assistive Devices: Glasses Review of Systems 2 Review of Systems: review of systems reviewed and negative except for as mentioned in HPI above Physical Exam 2 Physical Exam: PHYSICAL EXAMINATION Last 24h vital signs reviewed, see documentation in flowsheet General: young woman, comfortable appearing, no distress HEENT: Normocephalic, atraumatic, pupils round and equal, sclerae anicteric, no conjunctival injection, moist mucus membranes Lungs: Normal respiratory effort. Clear to auscultation bilaterally. Diminished both bases without crackles. No RRW Heart: Regular rate and rhythm, no murmurs. No JVD Abdomen: Soft, nontender, nondistended. Bowel sounds present. incision lower abdomen healing well no erythema no drainage Extremities: Warm, dry, well-perfused. 2+ lower extremity edema. Neuro: Alert and oriented x 4, face symmetric, moves 4 extremities well Psych: Normal affect and behavior Results & Data Results & Data Vital Signs (Past 12 Hours) Vital Signs Temp Pulse Pulse Resp BP BP Pulse Ox 05/12/23 16:46 05/12/23 16:32 95 H 16 120/81 87 L 05/12/23 12:28 82 24 132/85 91 05/12/23 11:00 90 05/12/23 11:00 156/93 H 05/12/23 10:38 37.4 C 72 16 126/72 92 05/12/23 10:38 05/12/23 10:30 151/89 H 05/12/23 10:30 92 05/12/23 10:01 93 05/12/23 10:01 134/86 05/12/23 10:00 93 05/12/23 09:30 127/73 05/12/23 09:30 92 05/12/23 09:29 93 05/12/23 09:28 124/74 05/12/23 07:22 76 21 94 05/12/23 07:00 133/79 05/12/23 07:00 78 22 92 05/12/23 06:30 132/77 05/12/23 06:30 71 17 93 05/12/23 06:00 133/83 05/12/23 06:00 78 18 93 05/12/23 05:30 70 17 128/78 92 O2 Del Method O2 Flow Rate 05/12/23 16:46 Nasal Cannula 1 05/12/23 16:32 Room Air 87 05/12/23 12:28 Room Air 05/12/23 11:00 05/12/23 11:00 05/12/23 10:38 05/12/23 10:38 Room Air 05/12/23 10:30 05/12/23 10:30 05/12/23 10:01 05/12/23 10:01 05/12/23 10:00 05/12/23 09:30 05/12/23 09:30 05/12/23 09:29 05/12/23 09:28 05/12/23 07:22 05/12/23 07:00 05/12/23 07:00 05/12/23 06:30 05/12/23 06:30 05/12/23 06:00 05/12/23 06:00 05/12/23 05:30 Laboratory Results 05/12/23 03:07 05/12/23 03:07 Diagnostic Findings Chest X-Ray 05/12/23 02:51 XR chest 1V portable HISTORY: Chest pain, nonspecific COMPARISON: Chest 09/20/2022. FINDINGS: There are low lung volumes. No pneumothorax. The heart is mildly enlarged. There are bibasilar patchy densities and small bilateral pleural effusions. There is diffuse interstitial/vascular thickening consistent with mild congestive change. No acute fractures identified. IMPRESSION: 1. Cardiomegaly with mild congestive change and small bilateral pleural effusions. 2. Patchy bibasilar densities may represent atelectasis or pneumonia. ACT 112: Negative or not required by law. Electronically signed by: Guillermo Rock M.D. 05/12/2023 7:16 AM Chest CTA 05/12/23 03:23 Exam(s): CTA CHEST IV Amt: 120 ml EXAM: CT Angiography Chest With Intravenous Contrast CLINICAL HISTORY: Reason for exam: PE, SSD, recent delivery. TECHNIQUE: Axial computed tomographic angiography images of the chest with intravenous contrast. CTDI is 42.39 mGy and DLP is 799.1 mGy-cm. Automated exposure control was utilized for the study. A dose lowering technique was utilized adhering to the principles of ALARA. MIP reconstructed images were created and reviewed. COMPARISON: No relevant prior studies available. FINDINGS: Pulmonary arteries: Unremarkable. No pulmonary embolism. Aorta: No acute findings. No thoracic aortic aneurysm. Lungs: Unremarkable. No mass. No consolidation. Pleural space: There is multisegmental atelectatic changes posterior inferior bilateral lower lobes. Small bilateral pleural effusions as well. No pneumothorax. Heart: Unremarkable. No cardiomegaly. No significant pericardial effusion. No evidence of RV dysfunction. Bones/joints: No acute fracture. No dislocation. Soft tissues: Unremarkable. Lymph nodes: Unremarkable. No enlarged lymph nodes. IMPRESSION: Bilateral pleural effusions and atelectasis as described, no pulmonary emboli seen. Electronically signed by: Cedric Smith MD 05/12/23 07:01 AM I personally reviewed the chest CT films agree with interp small symmetrical bilateral pleural effusions with atelectasis in both bases. On CXR film heart appears large, lung volumes are low, probable pleural effusions present ECG Additional Comments: personally reviewed tracing - sinus, possible inferior Qs, poor R-wave progression possible anterior Qs Code Status & VTE Plan VTE Prophylaxis Plan VTE Prophylaxis will be ordered: Yes Reason for no VTE drug order: Treatment not indicated PG Care Time/CCT Total # of Minutes Spent Total Time Spent with Patient: Total time spent is greater than 50% in coordination of care (as documented) at patient's floor/unit and/or counseling patient: Coding Level of Care Code 25883 INT INP/OBS CARE 3/75MIN Diagnoses Pleural effusion J90 Back pain M54.9 Sickle cell anemia D57.1 anemia O90.81 Lactating mother Z39.1 Sleep apnea G47.30 Asthma J45.909
[2023-05-12] MEDS: ASPIRIN 81 MG CHEW PO SCH (18:49)
[2023-05-12] MEDS: FERROUS SULFATE 325 MG TAB PO SCH (19:28)
--- NOTE | 2023-05-12 20:46 | XCELERA ---
[id number]
[2023-05-13] MEDS: oxyCODONE/ACETAMINOPHEN 5mg/325mg TAB PO PRN (01:25)
[2023-05-13 03:16] LABS: Appearance Urine Clear (Clear); Bacteria Urine Automated Negative (Negative); Bilirubin Urine Negative (Negative); Blood Urine 2+ (Negative); Cast Urine Automated 0 /lpf (0-5); Color Urine Yellow; Epithelial Cell Urine Auto 0-5 /lpf (0-5); Glucose Urine UA Negative (Negative); Ketones Urine Negative (Negative); Leukocyte Esterase Urine Negative (Negative); Nitrite Urine Negative (Negative); Protein Urine Negative (Negative); RBC Urine Automated 0-4 /hpf (0-4); Specific Gravity Urine 1.007 (1.000-1.030); Urobilinogen Urine Negative (Negative)
[2023-05-13 06:49] LABS: Hematocrit (blood only) 28.8 % (37.0-47.0); Hemoglobin 10.4 g/dl (12.0-16.0); Mean Corpuscular Hemoglobin 26.1 pg (25.0-34.0); Mean Corpuscular Hgb Conc 36.1 g/dL (32.0-36.0); Mean Corpuscular Volume 72.4 fL (80.0-100.0); Mean Platelet Volume 9.7 fL (9.4-12.4); Nucleated RBC # (auto) 0.06 K/uL (0.00-0.12); Nucleated RBC % (auto) 0.3 %; Platelet Count 460 K/uL (130-400); RDW Coefficient of Variation 15.8 % (11.5-14.5); RDW Standard Deviation 41.1 fL (36.4-46.3); Red Blood Count 3.98 M/uL (4.20-5.40); White Blood Count 22.45 K/ul (4.8-10.8)
[2023-05-13 08:12] LABS: Calcium 8.3 mg/dl (8.6-10.3); Potassium 3.3 mmol/L (3.5-5.1)
[2023-05-13 08:18] LABS: BUN Creatinine Ratio 7.8 (10-20); Creatinine Clr Calc Pharmacy 133.8 ml/min; Est GFR (African American) 120.1 ml/min; Est GFR (Non-African American) 103.6 ml/min
[2023-05-13] MEDS: FERROUS SULFATE 325 MG TAB PO SCH (08:51)
[2023-05-13] MEDS: ASPIRIN 81 MG CHEW PO SCH (08:51)
[2023-05-13] MEDS: FOLIC ACID 1 MG TAB PO SCH (08:53)
[2023-05-13] MEDS ORDERED: POTASSIUM CHLORIDE CRTAB 20 MEQ TABCR PO STA (09:49)
[2023-05-13] MEDS: cefTRIAXone SODIUM 2,000 MG in DEXTROSE 5% 50 ML IV SCH (11:11)
[2023-05-13] MEDS: AZITHROMYCIN 500 MG in DEXTROSE 5% 250 ML IV SCH (11:33)
--- NOTE | 2023-05-13 17:09 | Hospitalist Progress Note ---
Date of Service May 13, 2023 Assessment & Plan (1) Pneumonia: Plan: Puzzling picture with dyspnea/hypoxia and worsening leukocytosis. Serial procalcitonin was negative x 2. I discussed the CTA with staff radiologist today and he thought no PE but there was a lot of consolidation present picture most compatible with pneumonia. Considered extended gram-negative coverage because she had c/s on 04/30 but seems like overkill since she does not appear severely ill -started ceftriaxone and azithromycin, broaden if not improving -reviewed - ceftriaxone is safe, azithromycin generally considered safe but there is some risk of diarrhea in the infant, which I warned her about today -supplemental O2 -AM CBC (2) Pleural effusion: Plan: Lima has volume overload with bilateral pleural effusions and persistent leg edema twelve days after . This is associated with some dyspnea (endorsed for ED though denied for me) and mild hypoxia. She has had some hypertension in the ED max BPs 150s/90 on a few checks otherwise normal. BNP is low but could be false low because of BMI. Serial troponin has been negative x 2 checks. EKG is notable for some possible q-waves of uncertain significance. The back pain is musculoskeletal in nature and does not appear to be related to the pleural effusions. I am concerned for peripartum cardiomyopathy and TTE was completed read late last night, reviewed and is reassuring with normal EF and only mild IVC distention. Her serum albumin is low normal as expected with . UA no proteinuria and renal function is normal. Liver function is normal. Pleural effusions are symmetric and small, likely related to volume overload and likely to respond to diuresis. There is no evidence of infection based on symptoms or chest CT and empyema would not be bilateral. She does not have history of rheumatologic disease. Sickle chest crisis seems unlikely given chest pain is highly reproducible on palpation of right back muscles, is not severe, hypoxia is mild, and she has never had pain crisis in the past. -lasix 20 mg IV x 1 given 05/12, and potassium replacement repeated this am po -HCTZ under 50 mg daily is considered safe with if gentle diuretic is needed at discharge. 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 -back pain essentially resolved 05/13 and I think empyema is unlikely, though can consider thoracentes(es) (3) Back pain: Plan: CTA chest was negative for PE, no evidence of ACS and low risk for CAD, unlikely that it is related to pleural effusion and pain is much higher than her effusion which is small/basilar (and symmetric) Right lateral mid back just inferior to the scapula Highly musculoskeletal in character and tender to palpation on exam -analgesics - APAP, percocet if necessary -appears to be resolving (4) Sickle cell anemia: Plan: Hgb stable at 10.6 compared to her range (10-10.8) and mildly lower than her baseline 10-11.3 Wonder if she has sickle C since phenotype seems mild Follows with [facility] hematology Transfusion not indicated I do not think she is in a sickle pain crisis or chest crisis (5) anemia: Plan: As above Continue oral iron supplement, Hgb improved since (6) Lactating mother: Plan: Review medications for safety no symptoms of mastitis (7) Sleep apnea: Plan: This is listed on chart from 2021 clarify whether on CPAP (8) Asthma: Plan: Stable not in exacerbation. Not currently taking medications. -albuterol prn Plan DVT ppx - start heparinoid Continue low dose ASA for preeclampsia prophylaxis Admission and Anticipated Discharge Date Admission Date: May 12, 2023 Subjective Feels about the same with respect to some mild dyspnea and says she had some cough since following her . Back pain is much improved. She doesn't think she urinated a lot more after lasix IV yesterday but leg edema is improved. Physical Exam 2 Physical Exam: PHYSICAL EXAMINATION Last 24h vital signs reviewed, see documentation in flowsheet General: young woman, comfortable appearing, no distress HEENT: Normocephalic, atraumatic, pupils round and equal, sclerae anicteric, no conjunctival injection, moist mucus membranes Lungs: Normal respiratory effort. Clear to auscultation bilaterally. bases diminished, tubular breath sounds posteriorly bilateral midfields Heart: Regular rate and rhythm, no murmurs. No JVD Abdomen: Soft, nontender, nondistended. Bowel sounds present. incision examined yesterday lower abdomen healing well no erythema no drainage Extremities: Warm, dry, well-perfused. 1+ lower extremity edema - improved. Neuro: Alert and oriented x 4, face symmetric, moves 4 extremities well Psych: Normal affect and behavior Results & Data Results & Data Vital Signs (Past 12 Hours) Vital Signs Temp Pulse Pulse Resp BP BP Pulse Ox 11/20/23 15:20 104 H 05/13/23 15:20 37.4 C 111 H 18 119/77 93 05/13/23 12:13 111 H 05/13/23 11:00 05/13/23 07:41 106 H 05/13/23 06:30 130/82 05/13/23 06:30 106 H 31 H 95 05/13/23 06:00 123/78 05/13/23 06:00 105 H 35 H 95 05/13/23 05:30 121/78 05/13/23 05:30 99 H 30 H 94 05/13/23 05:00 118/77 05/13/23 05:00 106 H 27 H 94 O2 Del Method O2 Flow Rate 05/13/23 15:20 05/13/23 15:20 Nasal Cannula 3 05/13/23 12:13 05/13/23 11:00 Nasal Cannula 4 05/13/23 07:41 05/13/23 06:30 05/13/23 06:30 05/13/23 06:00 05/13/23 06:00 05/13/23 05:30 05/13/23 05:30 05/13/23 05:00 05/13/23 05:00 Laboratory Results 05/13/23 06:15 05/13/23 06:15 Diagnostic Findings Chest X-Ray 05/12/23 02:51 XR chest 1V portable HISTORY: Chest pain, nonspecific COMPARISON: Chest 09/20/2022. FINDINGS: There are low lung volumes. No pneumothorax. The heart is mildly enlarged. There are bibasilar patchy densities and small bilateral pleural effusions. There is diffuse interstitial/vascular thickening consistent with mild congestive change. No acute fractures identified. IMPRESSION: 1. Cardiomegaly with mild congestive change and small bilateral pleural effusions. 2. Patchy bibasilar densities may represent atelectasis or pneumonia. ACT 112: Negative or not required by law. Electronically signed by: Guillermo Rock M.D. 05/12/2023 7:16 AM Chest CTA 05/12/23 03:23 Exam(s): CTA CHEST IV Amt: 120 ml EXAM: CT Angiography Chest With Intravenous Contrast CLINICAL HISTORY: Reason for exam: PE, SSD, recent delivery. TECHNIQUE: Axial computed tomographic angiography images of the chest with intravenous contrast. CTDI is 42.39 mGy and DLP is 799.1 mGy-cm. Automated exposure control was utilized for the study. A dose lowering technique was utilized adhering to the principles of ALARA. MIP reconstructed images were created and reviewed. COMPARISON: No relevant prior studies available. FINDINGS: Pulmonary arteries: Unremarkable. No pulmonary embolism. Aorta: No acute findings. No thoracic aortic aneurysm. Lungs: Unremarkable. No mass. No consolidation. Pleural space: There is multisegmental atelectatic changes posterior inferior bilateral lower lobes. Small bilateral pleural effusions as well. No pneumothorax. Heart: Unremarkable. No cardiomegaly. No significant pericardial effusion. No evidence of RV dysfunction. Bones/joints: No acute fracture. No dislocation. Soft tissues: Unremarkable. Lymph nodes: Unremarkable. No enlarged lymph nodes. IMPRESSION: Bilateral pleural effusions and atelectasis as described, no pulmonary emboli seen. Electronically signed by: Cedric Simth MD 05/12/23 07:01 AM ADDENDUM ADDENDUM: There are small pleural effusions with dense bibasilar airspace consolidation. There are also mild patchy airspace opacities in the left upper lobe. The appearance favors pneumonia over atelectasis and clinical/laboratory correlation will be required. No pulmonary embolus is seen. PG Care Time/CCT Total # of Minutes Spent Total Time Spent with Patient: Total time spent is greater than 50% in coordination of care (as documented) at patient's floor/unit and/or counseling patient: Coding Level of Care Code 96103 SUB INP/OBS CARE 3/50MIN Diagnoses Pneumonia J18.9 Pleural effusion J90 Back pain M54.9 Sickle cell anemia D57.1 anemia O90.81 Lactating mother Z39.1 Sleep apnea G47.30 Asthma J45.909
[2023-05-13] MEDS ORDERED: ALBUTEROL HFA 8 GM INHALER INH PRN (17:10)
[2023-05-13] MEDS: ACETAMINOPHEN 325 MG TAB PO PRN (19:49)
[2023-05-13] MEDS: ENOXAPARIN INJ 40 MG/0.4 ML SYR SQ SCH (19:49)
--- NOTE | 2023-05-13 22:12 | Electrocardiogram Report ---
Test Reason : Blood Pressure : / mmHG Vent. Rate : 079 BPM Atrial Rate : 079 BPM P-R Int : 154 ms QRS Dur : 072 ms QT Int : 346 ms P-R-T Axes : 053 033 063 degrees QTc Int : 396 ms Normal sinus rhythm Anterior infarct , age undetermined Abnormal ECG When compared with ECG of 20-SEP-2022 20:03, Borderline criteria for Inferior infarct are now Present Confirmed by Steven Ulloa ([id number]) on 05/13/2023 10:12:32 PM Referred By: REFERRED SELF Confirmed By:Steven Ulloa
[2023-05-14 05:13] LABS: Hematocrit (blood only) 28.2 % (37.0-47.0); Hemoglobin 10.3 g/dl (12.0-16.0); Mean Corpuscular Hemoglobin 26.3 pg (25.0-34.0); Mean Corpuscular Hgb Conc 36.5 g/dL (32.0-36.0); Mean Corpuscular Volume 71.9 fL (80.0-100.0); Mean Platelet Volume 9.8 fL (9.4-12.4); Nucleated RBC # (auto) 0.04 K/uL (0.00-0.12); Nucleated RBC % (auto) 0.2 %; Platelet Count 437 K/uL (130-400); RDW Coefficient of Variation 15.8 % (11.5-14.5); RDW Standard Deviation 40.8 fL (36.4-46.3); Red Blood Count 3.92 M/uL (4.20-5.40); White Blood Count 16.48 K/ul (4.8-10.8)
[2023-05-14] MEDS: ENOXAPARIN INJ 40 MG/0.4 ML SYR SQ SCH (08:24)
[2023-05-14] MEDS: FOLIC ACID 1 MG TAB PO SCH (08:24)
[2023-05-14] MEDS: FERROUS SULFATE 325 MG TAB PO SCH (08:25)
[2023-05-14] MEDS: ASPIRIN 81 MG CHEW PO SCH (08:26)
[2023-05-14 10:27] LABS: Thyroid Stimulating Hormone 3.421 uIu/ml (0.300-4.500)
[2023-05-14 10:37] LABS: Calcium 8.8 mg/dl (8.6-10.3); Potassium 3.7 mmol/L (3.5-5.1)
[2023-05-14 10:43] LABS: BUN Creatinine Ratio 8.6 (10-20); Creatinine Clr Calc Pharmacy 147.4 ml/min; Est GFR (African American) 134.8 ml/min; Est GFR (Non-African American) 116.3 ml/min
[2023-05-14] MEDS: cefTRIAXone SODIUM 2,000 MG in DEXTROSE 5% 50 ML IV SCH (11:35)
[2023-05-14] MEDS: AZITHROMYCIN 500 MG in DEXTROSE 5% 250 ML IV SCH (11:40)
--- NOTE | 2023-05-14 12:40 | Hospitalist Progress Note ---
Date of Service May 14, 2023 Assessment & Plan (1) Pneumonia: Plan: b/l ongoing fevers but clinically she looks well and is improved [id number] would want at least 24 hours of no fever prior to discharge cont rocephin - day #2 cont zithromax - day #2 unfortunately no blood cx's sent at admission repeat cbc am if she fails to improve would need gram negative coverage given recent c/s and hospital stay for her delivery of her son checked respiratory biofire - returned negative (2) Pleural effusion: Plan: 2nd to #1 perhaps mild amount of volume overload in the setting of recent but less likely consider repeat cxr am (3) Back pain: Plan: improved per admission MD appeared to be musculoskeletal in nature also possible it was pleuritic pain from #[address] is better (4) Sickle cell anemia: Plan: Follows with [facility] Hematology H/H stable No evidence of vaso-occlusive pain crisis No chest pain symptoms fortunately and she is now stable in room air Chest crisis unlikely Likely is a S-C subtype or S-Thal Repeat cbc in am (5) anemia: Plan: Check Fe studies in am Remains on iron supplement Repeat CBC am (6) Lactating mother: Plan: all current meds are safe with (7) Sleep apnea: (8) Asthma: Plan: No exacerbation at this time Plan lovenox 40mg daily for DVT proph also on aspirin per heme/onc recs constipation - add miralax daily - no BM while hospitalized Admission and Anticipated Discharge Date Admission Date: May 12, 2023 Subjective patient anxious to go home continues to pump breastmilk for her son continues with cough - green sputum - but somewhat improved I removed her NC O2 during the visit sats stayed 94% or greater in room air reports minimal amount of dyspnea on exertion does have h/o asthma but reports no wheezing eating is poor Review of Systems Review of Systems: gen - continues with low-grade fevers - she did note the fever last night; is fatigued musculo - had had right sided back pain earlier in the visit now improved cv - no chest pain pulm - ongoing cough/congestion GI - no diarrhea Physical Exam Physical Exam: gen - NAD, looks well/nontoxic neck - no JVD mouth - MMM, no thrush heart - tachy, s1 s2, no murmur lungs - decreased BS bases, fine dry rales about 1/2 [address] up back b/l, no wheeze, no increased work of breathing abd - soft NT ND BS+; no HSM ext - no edema, pulses 2+ b/l psych - a/o x 3 Results & Data Results & Data Vital Signs (Past 12 Hours) Vital Signs Temp Pulse Pulse Resp BP Pulse Ox O2 Del Method 05/14/23 11:41 36.7 C 102 H 18 115/70 94 Nasal Cannula 05/14/23 08:01 36.9 C 103 H 20 120/70 95 Nasal Cannula 05/14/23 07:14 99 H 05/14/23 06:00 102 H Nasal Cannula 05/14/23 03:48 37.1 C 99 H 20 121/79 99 Nasal Cannula O2 Flow Rate 05/14/23 11:41 3 05/14/23 08:01 3 05/14/23 07:14 05/14/23 06:00 3 05/14/23 03:48 2 Laboratory Results Laboratory Results - last 24 hr 05/14/23 05/14/23 04:31 14:30 WBC RBC Hgb Hct MCV MCH MCHC RDW Std Deviation RDW Coeff of Aletha Plt Count MPV Absolute Nucleated RBC Nucleated RBC % (auto) Sodium 140 Potassium 3.7 Chloride 110 H Carbon Dioxide 20 L Anion Gap 10 BUN 6 Creatinine 0.70 Est Cr Clr Drug Dosing 147.4 Est GFR ( Amer) 134.8 Est GFR (Non-Af Amer) 116.3 BUN/Creatinine Ratio 8.6 L Glucose 76 Calcium 8.8 Magnesium 2.0 Iron TIBC Unsaturated IBC Transferrin % Sat Ferritin TSH 3.421 Adenovirus (PCR) Not Detected B. pertussis DNA (PCR) Not Detected B.parapertussis DNA PCR Not Detected C. pneumoniae DNA (PCR) Not Detected Coronavirus OC43 (PCR) Not Detected Coronavirus HKU1 (PCR) Not Detected Coronavirus 229E (PCR) Not Detected SARS-CoV-2 (PCR) Not Detected Coronavirus NL63 (PCR) Not Detected Human Metapneumovir PCR Not Detected Influenza Type A (PCR) Not Detected Influenza Type B (PCR) Not Detected M. pneumoniae (PCR) Not Detected Parainfluenza 1 (PCR) Not Detected Parainfluenza 2 (PCR) Not Detected Parainfluenza 3 (PCR) Not Detected Parainfluenza 4 (PCR) Not Detected RSV (PCR) Not Detected Entero/Rhino (PCR) Not Detected PG Care Time/CCT Total # of Minutes Spent Total Time Spent with Patient: Total time spent is greater than 50% in coordination of care (as documented) at patient's floor/unit and/or counseling patient: Coding Level of Care Code 36255 SUB INP/OBS CARE 2/35MIN Diagnoses Pneumonia J18.9 Pleural effusion J90 Back pain M54.9 Sickle cell anemia D57.1 anemia O90.81 Lactating mother Z39.1 Sleep apnea G47.30 Asthma J45.909
[2023-05-14] MEDS: POLYETHYLENE (MIRALAX) 17 GM PACK PO SCH (14:06)
[2023-05-14 16:04] LABS: Adenovirus PCR Not Detected (NotDetected); Bordetella parapertussis PCR Not Detected (NotDetected); Bordetella pertussis PCR Not Detected (NotDetected); Chlamydia pneumoniae PCR Not Detected (NotDetected); Coronavirus 229E PCR Not Detected (NotDetected); Coronavirus CoV-2 (COVID19)PCR Not Detected (NotDetected); Coronavirus HKU1 PCR Not Detected (NotDetected); Coronavirus NL63 PCR Not Detected (NotDetected); Coronavirus OC43PCR Not Detected (NotDetected); Human Metapneumovirus PCR Not Detected (NotDetected); Influenza A PCR Not Detected (NotDetected); Influenza B PCR Not Detected (NotDetected); Mycoplasma pneumoniae PCR Not Detected (NotDetected); Parainfluenza Virus 1 PCR Not Detected (NotDetected); Parainfluenza Virus 2 PCR Not Detected (NotDetected); Parainfluenza Virus 3 PCR Not Detected (NotDetected); Parainfluenza Virus 4 PCR Not Detected (NotDetected); Respiratory Syncytial VirusPCR Not Detected (NotDetected); Rhinovirus/Enterovirus PCR Not Detected (NotDetected)
[2023-05-14] MEDS: ACETAMINOPHEN 325 MG TAB PO PRN (17:13)
[2023-05-15] MEDS: ACETAMINOPHEN 325 MG TAB PO PRN ×4 (03:56→23:39)
[2023-05-15 06:21] LABS: Hematocrit (blood only) 27.2 % (37.0-47.0); Hemoglobin 9.9 g/dl (12.0-16.0); Mean Corpuscular Hemoglobin 25.5 pg (25.0-34.0); Mean Corpuscular Hgb Conc 36.4 g/dL (32.0-36.0); Mean Corpuscular Volume 70.1 fL (80.0-100.0); Mean Platelet Volume 9.8 fL (9.4-12.4); Nucleated RBC # (auto) 0.04 K/uL (0.00-0.12); Nucleated RBC % (auto) 0.3 %; Platelet Count 420 K/uL (130-400); RDW Coefficient of Variation 16.4 % (11.5-14.5); RDW Standard Deviation 41.1 fL (36.4-46.3); Red Blood Count 3.88 M/uL (4.20-5.40); White Blood Count 12.51 K/ul (4.8-10.8)
[2023-05-15 06:32] LABS: BUN Creatinine Ratio 11.8 (10-20); Calcium 8.7 mg/dl (8.6-10.3); Creatinine Clr Calc Pharmacy 151.8 ml/min; Est GFR (Non-African American) 117.4 ml/min; Potassium 3.5 mmol/L (3.5-5.1)
[2023-05-15 06:51] LABS: Ferritin 111.7 ng/ml (8-388)
[2023-05-15] MEDS: FERROUS SULFATE 325 MG TAB PO SCH (08:16)
[2023-05-15] MEDS: FOLIC ACID 1 MG TAB PO SCH (08:16)
[2023-05-15] MEDS: ENOXAPARIN INJ 40 MG/0.4 ML SYR SQ SCH (08:16)
[2023-05-15] MEDS: POLYETHYLENE (MIRALAX) 17 GM PACK PO SCH (08:18)
[2023-05-15] MEDS: ASPIRIN 81 MG CHEW PO SCH (08:22)
[2023-05-15] MEDS ORDERED: AZITHROMYCIN 250 MG TAB PO SCH (10:30)
[2023-05-15] MEDS: CEFEPIME 2,000 MG in SYRINGE 0 ML IV SCH ×2 (10:45→17:26)
--- NOTE | 2023-05-15 10:56 | XRay Report ---
TWO VIEW CHEST CLINICAL HISTORY: Pneumonia. Fever. FINDINGS: PA and lateral chest radiographs are compared to chest x-ray and chest CT dated 05/12/2023. The cardiomediastinal silhouette is unremarkable. There is bibasilar airspace consolidation and smal l pleural effusions. There is no pneumothorax. The bony thorax appears intact. IMPRESSION: Small pleural effusions and bibasilar consolidation. This is typical for pneumonia/aspira tion pneumonitis and appears modestly worsened as compared to previous. Radiographic follow-up to res olution is recommended. ACT 112: Negative or not required by law. Electronically signed by: Jordan Anne M.D. 05/15/2023 10:54 AM
--- NOTE | 2023-05-15 16:52 | Ultrasound Report ---
US effusion-chest/mediastinum CLINICAL HISTORY: R pleuritic chest pain, effusion; eval size of effusion COMPARISON STUDY: Chest CTA 05/12/2023. FINDINGS: There is a small right pleural effusion approximate volume of 126 cc. The effusion appears slightly complex with internal echoes. There is also a small left pleural effusion which also appears slightly complex but is difficult to measure due to its small size. IMPRESSION: Small slightly complex bilateral pleural effusions as described above. ACT 112: Negative or not required by law. Electronically signed by: Guillermo Rock M.D. 05/15/2023 4:51 PM
--- NOTE | 2023-05-15 21:51 | Hospitalist Progress Note ---
Date of Service May 15, 2023 Assessment & Plan (1) Pneumonia: Plan: b/l basilar pneumonia ongoing fevers but clinically she continues to look well and leukocytosis is better [id number] I am concerned about the persistent fevers thus I broadened her abx to cefepime today stop rocephin cont zithromax - day #3; complete 5 days of Rx unfortunately no blood cx's sent at admission repeat cbc am checked respiratory biofire - returned negative (2) Pleural effusion: Plan: 2nd to #1 perhaps mild amount of volume overload in the setting of recent but less likely she c/o pleuritic chest pain on the right side today in light of known effusions I ordered u/s of right pleural space just a small effusion is present although they mention mild septations at minimum has parapneumonic effusions but need to watch carefully for ongoing pain, ongoing fevers, etc which would suggest possible empyema treat the pain (3) Back pain: Plan: suspect pleuritic pain from #1 and #2 see above (4) Sickle cell anemia: Plan: Follows [facility] H/H stable No evidence of vaso-occlusive pain crisis No chest pain symptoms fortunately and she is now stable in room air Chest crisis unlikely She is a S-C subtype Repeat cbc in am with retic count (5) anemia: Plan: ferritin elevated due to acute phase but transferrin sat is 12% Remains on iron supplement; cont after discharge Repeat CBC am (6) Lactating mother: Plan: all current meds are safe with (7) Sleep apnea: (8) Asthma: Plan: No exacerbation at this time albuterol prn cont pulmonary toilet Plan lovenox 40mg daily for DVT proph also on aspirin per heme/onc recs constipation - improved; cont miralax daily pt's mother updated at bedside today Admission and Anticipated Discharge Date Admission Date: May 14, 2023 Subjective patient overall feeling better appetite modestly improved the pain in her right upper back near the scapula has returned pleuritic in nature brought on a little by coughing and movements no dyspnea at rest, however she remains off O2 she does confirm she is S-C subtype of sickle cell had pneumonia in her teenage years but otherwise never been hospitalized besides that 1 incident Review of Systems Review of Systems: cv - see HPI; no left-sided chest pain; no substernal chest pain pulm - cough present; sputum present but better; no wheezing GI - no N/V/D; did have BM finally Physical Exam Physical Exam: gen - NAD, looks well/nontoxic, no coughing or respiratory distress neck - no JVD mouth - MMM, no thrush heart - tachy, s1 s2, no murmur lungs - decreased BS bases, fine dry rales about 1/[address] up back b/l (unc hanged); she winced in pain with taking deep breaths due to pain on the right side upper back; no wheeze, no increased work of breathing abd - soft NT ND BS+; no HSM ext - no edema, pulses 2+ b/l psych - a/o x 3 Results & Data Results & Data Vital Signs (Past 12 Hours) Vital Signs Temp Pulse Resp BP Pulse Ox O2 Del Method 05/15/23 20:25 37.6 C H 124 H 14 121/75 91 Room Air 05/15/23 15:14 37.1 C 105 H 18 118/73 93 Room Air 05/15/23 11:28 36.7 C 93 H 18 100/65 95 Room Air Laboratory Results Laboratory Results - last 24 hr 05/15/23 05:41 WBC 12.51 H RBC 3.88 L Hgb 9.9 L Hct 27.2 L MCV 70.1 L MCH 25.5 MCHC 36.4 H RDW Std Deviation 41.1 RDW Coeff of Aletha 16.4 H Plt Count 420 H MPV 9.8 Absolute Nucleated RBC 0.04 Nucleated RBC % (auto) 0.3 Sodium 138 Potassium 3.5 Chloride 109 H Carbon Dioxide 21 Anion Gap 8 BUN 8 Creatinine 0.68 Est Cr Clr Drug Dosing 151.8 Est GFR ( Amer) 136.0 Est GFR (Non-Af Amer) 117.4 BUN/Creatinine Ratio 11.8 Glucose 83 Calcium 8.7 Iron 28 L TIBC 236 L Unsaturated IBC 208 Transferrin % Sat 12 L Ferritin 111.7 PG Care Time/CCT Total # of Minutes Spent Total Time Spent with Patient: Total time spent is greater than 50% in coordination of care (as documented) at patient's floor/unit and/or counseling patient: Coding Level of Care Code 23022 SUB INP/OBS CARE 3/50MIN Diagnoses Pneumonia J18.9 Pleural effusion J90 Back pain M54.9 Sickle cell anemia D57.1 anemia O90.81 Lactating mother Z39.1 Sleep apnea G47.30 Asthma J45.909
[2023-05-16] MEDS: CEFEPIME 2,000 MG in SYRINGE 0 ML IV SCH ×3 (02:50→18:00)
[2023-05-16 06:34] LABS: Basophils # (auto) 0.11 K/uL (0.00-0.20); Basophils % (auto) 1.1 %; Eosinophils # (auto) 1.01 K/uL (0.00-0.50); Hematocrit (blood only) 26.6 % (37.0-47.0); Immature Granulocytes # (auto) 0.04 K/uL (0.01-0.20); Immature Granulocytes % (auto) 0.4 %; Lymphocytes % (auto) 18.9 %; Mean Corpuscular Hgb Conc 37.6 g/dL (32.0-36.0); Mean Corpuscular Volume 69.3 fL (80.0-100.0); Monocytes # (auto) 1.27 K/uL (0.11-0.59); Monocytes % (auto) 12.6 %; Neutrophils # (auto) 5.72 K/uL (1.40-6.50); Nucleated RBC # (auto) 0.03 K/uL (0.00-0.12); Nucleated RBC % (auto) 0.3 %; RDW Coefficient of Variation 16.7 % (11.5-14.5); RDW Standard Deviation 40.7 fL (36.4-46.3); Red Blood Count 3.84 M/uL (4.20-5.40); White Blood Count 10.05 K/ul (4.8-10.8)
[2023-05-16 06:42] LABS: Mean Platelet Volume 10.3 fL (9.4-12.4); Platelet Count 425 K/uL (130-400)
[2023-05-16 06:48] LABS: Reticulocyte % 4.4 % (0.5-2.0); Reticulocytes # 0.15 10^6/uL (0.02-0.10)
[2023-05-16 06:49] LABS: BUN Creatinine Ratio 11.3 (10-20); Calcium 8.6 mg/dl (8.6-10.3); Creatinine Clr Calc Pharmacy 144.6 ml/min; Est GFR (African American) 132.5 ml/min; Est GFR (Non-African American) 114.3 ml/min; Potassium 3.8 mmol/L (3.5-5.1)
[2023-05-16 07:46] LABS: Poikilocytosis Present; Polychromasia 2+; Target Cells 3+
[2023-05-16] MEDS: POLYETHYLENE (MIRALAX) 17 GM PACK PO SCH (09:31)
[2023-05-16] MEDS: FERROUS SULFATE 325 MG TAB PO SCH (09:31)
[2023-05-16] MEDS: FOLIC ACID 1 MG TAB PO SCH (09:31)
[2023-05-16] MEDS: ENOXAPARIN INJ 40 MG/0.4 ML SYR SQ SCH (09:31)
[2023-05-16] MEDS: ASPIRIN 81 MG CHEW PO SCH (09:31)
[2023-05-16] MEDS: AZITHROMYCIN 250 MG TAB PO SCH (13:07)
--- NOTE | 2023-05-16 16:26 | Hospitalist Progress Note ---
Date of Service May 16, 2023 Assessment & Plan (1) Pneumonia: Plan: b/l basilar pneumonia slowly improving fever curve downtrending leukocytosis resolved feeling better with less pulmonary symptoms appetite better but still with some ongoing fevers cont zithromax - day #4; complete 5 days of Rx day #2 cefepime; Prior to that - 2 days of rocephin IV unfortunately no blood cx's sent at admission respiratory biofire - negative sputum cx pending (2) Pleural effusion: Plan: 2nd to #1 small - b/l likely parapneumonic u/s of right effusion checked yesterday due to pleuritic pain on right fluid amount <150cc, but "internal septations" seen clinical picture does not look like an empyema but the ongoing fever is concerning may need pulmonary to take a look at her case defer on that for now (3) Back pain: Plan: suspect pleuritic pain from #1 and #2 see above (4) Sickle cell anemia: Plan: Follows with [facility] Hematology H/H stable No evidence of vaso-occlusive pain crisis No chest pain symptoms fortunately and she is now stable in room air Chest crisis unlikely She is a S-C subtype CBC stable retic count adequate today (5) anemia: Plan: ferritin elevated due to acute phase but transferrin sat is 12% c/w Fe def in setting of her Sickle Cell anemia Remains on iron supplement; cont after discharge Repeat CBC am (6) Lactating mother: Plan: all current meds are safe with (7) Sleep apnea: Plan: patient thinks she had sleep study in [place] before moving to [place] she thinks she was told she does have BHUPENDRA but doesn't recall being asked to trial on CPAP (8) Asthma: Plan: No exacerbation at this time albuterol prn cont pulmonary toilet Plan lovenox 40mg daily for DVT proph aspirin 81mg daily per heme/onc recs constipation - improved; cont miralax daily pt's mother updated at bedside today watch again overnight in light of borderline low O2 sats and low-grade fevers check cxr again in am Admission and Anticipated Discharge Date Admission Date: May 14, 2023 Subjective tele overnight - NSR or sinus tach she feels better overall today overnight however she had low-grade fever and sats dropped during sleep eating improved cough improving - still with some sputum no dyspnea at rest or with exertion right upper back pain - pleuritic - is resolved no new complaints continues to pump BM for her son Review of Systems Review of Systems: gen - still with some fever but overall she feels better cv - no substernal/anterior chest pain pulm - no hemoptysis; no wheezing GI - no diarrhea Physical Exam Physical Exam: gen - NAD, looks well/nontoxic, no coughing or respiratory distress neck - no JVD mouth - MMM, no thrush heart - RRR, s1 s2, no murmur lungs - decreased BS bases but airation in the bases is improved today, fine dry rales - mild at most - lowest portion of bases; no wheezing abd - soft NT ND BS+; no HSM ext - no edema, pulses 2+ b/l psych - a/o x 3 Results & Data Results & Data Vital Signs (Past 12 Hours) Vital Signs Temp Pulse Pulse Resp BP Pulse Ox O2 Del Method 05/16/23 15:36 37.3 C 97 H 18 100/64 92 Room Air 05/16/23 13:54 110 H 91 Room Air 05/16/23 13:54 103 H 90 Room Air 05/16/23 11:38 36.6 C 118 H 18 116/75 92 Room Air 05/16/23 07:44 103 H 05/16/23 07:36 36.9 C 100 H 18 111/70 95 Nasal Cannula 05/16/23 05:53 90 95 Nasal Cannula 05/16/23 04:41 37.0 C 99 H 20 97/58 L 92 Nasal Cannula O2 Flow Rate 05/16/23 15:36 05/16/23 13:54 05/16/23 13:54 05/16/23 11:38 05/16/23 07:44 05/16/23 07:36 2 05/16/23 05:53 3 05/16/23 04:41 3 Laboratory Results Laboratory Results - last 24 hr 05/16/23 05:51 WBC 10.05 RBC 3.84 L Hgb 10.0 L Hct 26.6 L MCV 69.3 L MCH 26.0 MCHC 37.6 H RDW Std Deviation 40.7 RDW Coeff of Aletha 16.7 H Plt Count 425 H MPV 10.3 Immature Gran % (Auto) 0.4 Neut % (Auto) 57.0 Lymph % (Auto) 18.9 [place] % (Auto) 12.6 Eos % (Auto) 10.0 Baso % (Auto) 1.1 Reticulocyte % (Auto) 4.4 H Neut # (Auto) 5.72 Lymph # (Auto) 1.90 [place] # (Auto) 1.27 H Eos # (Auto) 1.01 H Baso # (Auto) 0.11 Reticulocyte # 0.15 H Immature Gran # (Auto) 0.04 Absolute Nucleated RBC 0.03 Nucleated RBC % (auto) 0.3 Polychromasia 2+ Poikilocytosis Present Target Cells 3+ Sodium 141 Potassium 3.8 Chloride 111 H Carbon Dioxide 24 Anion Gap 6 BUN 8 Creatinine 0.71 Est Cr Clr Drug Dosing 144.6 Est GFR ( Amer) 132.5 Est GFR (Non-Af Amer) 114.3 BUN/Creatinine Ratio 11.3 Glucose 83 Calcium 8.6 PG Care Time/CCT Total # of Minutes Spent Total Time Spent with Patient: Total time spent is greater than 50% in coordination of care (as documented) at patient's floor/unit and/or counseling patient: Coding Level of Care Code 57460 SUB INP/OBS CARE 2/35MIN Diagnoses Pneumonia J18.9 Pleural effusion J90 Back pain M54.9 Sickle cell anemia D57.1 anemia O90.81 Lactating mother Z39.1 Sleep apnea G47.30 Asthma J45.909
[2023-05-16] MEDS: ACETAMINOPHEN 325 MG TAB PO PRN (23:57)
[2023-05-17] MEDS: CEFEPIME 2,000 MG in SYRINGE 0 ML IV SCH ×3 (02:45→18:30)
[2023-05-17 08:45] LABS: Basophils # (auto) 0.12 K/uL (0.00-0.20); Basophils % (auto) 1.5 %; Eosinophils # (auto) 0.77 K/uL (0.00-0.50); Eosinophils % (auto) 9.4 %; Hematocrit (blood only) 26.6 % (37.0-47.0); Hemoglobin 9.8 g/dl (12.0-16.0); Immature Granulocytes # (auto) 0.03 K/uL (0.01-0.20); Immature Granulocytes % (auto) 0.4 %; Lymphocytes # (auto) 1.66 K/uL (1.20-3.40); Lymphocytes % (auto) 20.3 %; Mean Corpuscular Hemoglobin 25.3 pg (25.0-34.0); Mean Corpuscular Hgb Conc 36.8 g/dL (32.0-36.0); Mean Corpuscular Volume 68.6 fL (80.0-100.0); Neutrophils # (auto) 4.69 K/uL (1.40-6.50); Neutrophils % (auto) 57.4 %; Nucleated RBC # (auto) 0.02 K/uL (0.00-0.12); Nucleated RBC % (auto) 0.2 %; RDW Coefficient of Variation 17.2 % (11.5-14.5); RDW Standard Deviation 41.8 fL (36.4-46.3); Red Blood Count 3.88 M/uL (4.20-5.40); White Blood Count 8.17 K/ul (4.8-10.8)
--- NOTE | 2023-05-17 08:57 | XRay Report ---
TWO VIEW CHEST CLINICAL HISTORY: Pneumonia. Fever. FINDINGS: PA and lateral chest radiographs are compared to chest x-ray dictated 05/15/2023 and correl ated with chest CT dated 05/12/2023. The cardiomediastinal silhouette is unremarkable. There is bibas ilar airspace consolidation and small pleural effusions. There is no pneumothorax. The bony thorax ap pears intact. IMPRESSION: Small pleural effusions and bibasilar consolidation. This is typical for pneumonia/aspira tion pneumonitis and has not significantly changed from 05/15/2023. Continued radiographic follow-up to resolution is recommended. ACT 112: Negative or not required by law. Electronically signed by: Jordan Anne M.D. 05/17/2023 8:55 AM
[2023-05-17 09:03] LABS: Albumin Level 3.2 gm/dl (3.4-5.0); BUN Creatinine Ratio 12.3 (10-20); Bilirubin Direct 0.2 mg/dl (0-0.2); Bilirubin,Total 0.8 mg/dl (0.2-1.0); C Reactive Protein 7.2 mg/dl (0-0.5); Calcium 8.8 mg/dl (8.6-10.3); Creatinine Clr Calc Pharmacy 179.9 ml/min; Est GFR (African American) 144.2 ml/min; Est GFR (Non-African American) 124.4 ml/min; Potassium 3.7 mmol/L (3.5-5.1); Total Protein 6.3 gm/dl (6.0-8.3)
[2023-05-17 09:16] LABS: Mean Platelet Volume 9.7 fL (9.4-12.4); Platelet Count 438 K/uL (130-400)
[2023-05-17 09:19] LABS: Microcytosis Present; Polychromasia 2+; Target Cells 3+; Tear Drop Cells 1+
[2023-05-17] MEDS: FERROUS SULFATE 325 MG TAB PO SCH (11:08)
[2023-05-17] MEDS: FOLIC ACID 1 MG TAB PO SCH (11:08)
[2023-05-17] MEDS: AZITHROMYCIN 250 MG TAB PO SCH (11:08)
[2023-05-17] MEDS: ASPIRIN 81 MG CHEW PO SCH (11:08)
[2023-05-17] MEDS: ENOXAPARIN INJ 40 MG/0.4 ML SYR SQ SCH (11:08)
[2023-05-17] MEDS: POLYETHYLENE (MIRALAX) 17 GM PACK PO SCH (11:09)
--- NOTE | 2023-05-17 18:54 | Hospitalist Progress Note ---
Date of Service May 17, 2023 Assessment & Plan (1) Pneumonia: Plan: b/l basilar pneumonia slowly improving fever curve downtrending and only having 1 temp/day leukocytosis resolved feeling better with less pulmonary symptoms appetite better completed 5 days of zithromax today is day #3 cefepime prior to such had 2 days of IV rocephin unfortunately no blood cx's sent at admission respiratory biofire - negative sputum cx pending plan - keep until tomorrow if no fevers overnight and O2 sats remain stable can go home tomorrow plan for oral cephalosporin at d/c will need repeat cxr in 4-6 weeks to ensure radiographic resolution (2) Pleural effusion: Plan: 2nd to #1 small - b/l likely parapneumonic u/s of right effusion checked due to pleuritic pain on right fluid amount <150cc, but "internal septations" seen clinical picture does not look like an empyema but will need to watch carefully for such may need pulmonary to take a look at her case defer on that for now since she is doing very well (3) Back pain: Plan: suspect pleuritic pain from #1 and #2 resolved (4) Sickle cell anemia: Plan: Follows with [facility] Hematology - Dr Hector H/H stable No evidence of vaso-occlusive pain crisis No chest pain symptoms fortunately and she is now stable in room air Chest crisis unlikely She is a S-C subtype CBC stable retic count adequate will need f/u with Dr Hector post-d/c (5) anemia: Plan: ferritin elevated due to acute phase but transferrin sat is 12% c/w Fe def in setting of her Sickle Cell anemia Remains on iron supplement; cont after discharge Repeat CBC am (6) Lactating mother: Plan: all current meds are safe with (7) Sleep apnea: Plan: patient thinks she had sleep study in [place] before moving to [place] she thinks she was told she does have BHUPENDRA but doesn't recall being asked to trial on CPAP (8) Asthma: Plan: No exacerbation at this time albuterol prn cont pulmonary toilet Plan lovenox 40mg daily for DVT proph aspirin 81mg daily per heme/onc recs constipation - improved; cont miralax daily home tomorrow? Admission and Anticipated Discharge Date Admission Date: May 14, 2023 Subjective feeling good although did need O2 overnight and did have fever last pm as well minimal cough during the day; only a little cough at night no further R back pain eating is better "I feel much better" denies dyspnea or STEELE ideally she return home on PO levaquin but it is released into breastmilk and per pharmacy it is not recommended for nursing mothers she would have to pump and discard I spoke to her about this and she is not wanting to take this route I support such Review of Systems Review of Systems: cv - no chest pain, no pleuritic pain today pulm - all symptoms improved GI - no diarrhea Physical Exam Physical Exam: gen - NAD, looks well/nontoxic, mouth - MMM, no thrush heart - RRR, s1 s2, no murmur lungs - decreased BS bases but airation again improved; mild rales bases - improved; no wheezing abd - soft NT ND BS+; no HSM ext - no edema, pulses 2+ b/l psych - a/o x 3 Results & Data Results & Data Vital Signs (Past 12 Hours) Vital Signs Temp Pulse Pulse Resp BP Pulse Ox O2 Del Method 05/17/23 18:32 89 05/17/23 11:07 36.9 C 99 H 16 107/69 93 Room Air 05/17/23 08:00 89 05/17/23 07:43 37.0 C 87 14 103/65 92 Room Air Laboratory Results Laboratory Results - last 24 hr 05/17/23 08:26 WBC 8.17 RBC 3.88 L Hgb 9.8 L Hct 26.6 L MCV 68.6 L MCH 25.3 MCHC 36.8 H RDW Std Deviation 41.8 RDW Coeff of Aletha 17.2 H Plt Count 438 H MPV 9.7 Immature Gran % (Auto) 0.4 Neut % (Auto) 57.4 Lymph % (Auto) 20.3 [place] % (Auto) 11.0 Eos % (Auto) 9.4 Baso % (Auto) 1.5 Neut # (Auto) 4.69 Lymph # (Auto) 1.66 [place] # (Auto) 0.90 H Eos # (Auto) 0.77 H Baso # (Auto) 0.12 Immature Gran # (Auto) 0.03 Absolute Nucleated RBC 0.02 Nucleated RBC % (auto) 0.2 Polychromasia 2+ Microcytosis Present Target Cells 3+ Tear Drop Cells 1+ Sodium 141 Potassium 3.7 Chloride 112 H Carbon Dioxide 23 Anion Gap 6 BUN 7 Creatinine 0.57 L Est Cr Clr Drug Dosing 179.9 Est GFR ( Amer) 144.2 Est GFR (Non-Af Amer) 124.4 BUN/Creatinine Ratio 12.3 Glucose 84 Calcium 8.8 Total Bilirubin 0.8 Direct Bilirubin 0.2 AST 14 ALT 7 Alkaline Phosphatase 61 C-Reactive Protein 7.20 H Total Protein 6.3 Albumin 3.2 L Diagnostic Findings sputum cx pending but thus far negative PG Care Time/CCT Total # of Minutes Spent Total Time Spent with Patient: Total time spent is greater than 50% in coordination of care (as documented) at patient's floor/unit and/or counseling patient: Coding Level of Care Code 59352 SUB INP/OBS CARE 2/35MIN Diagnoses Pneumonia J18.9 Pleural effusion J90 Back pain M54.9 Sickle cell anemia D57.1 anemia O90.81 Lactating mother Z39.1 Sleep apnea G47.30 Asthma J45.909
[2023-05-18] MEDS: CEFEPIME 2,000 MG in SYRINGE 0 ML IV SCH ×2 (02:44→09:25)
[2023-05-18 06:25] LABS: Basophils # (auto) 0.12 K/uL (0.00-0.20); Basophils % (auto) 1.4 %; Eosinophils # (auto) 0.89 K/uL (0.00-0.50); Eosinophils % (auto) 10.4 %; Hemoglobin 9.2 g/dl (12.0-16.0); Immature Granulocytes # (auto) 0.04 K/uL (0.01-0.20); Immature Granulocytes % (auto) 0.5 %; Lymphocytes # (auto) 2.16 K/uL (1.20-3.40); Lymphocytes % (auto) 25.4 %; Mean Corpuscular Hemoglobin 25.1 pg (25.0-34.0); Mean Corpuscular Hgb Conc 36.8 g/dL (32.0-36.0); Mean Corpuscular Volume 68.1 fL (80.0-100.0); Monocytes # (auto) 0.94 K/uL (0.11-0.59); Neutrophils # (auto) 4.37 K/uL (1.40-6.50); Neutrophils % (auto) 51.3 %; Nucleated RBC # (auto) 0.02 K/uL (0.00-0.12); Nucleated RBC % (auto) 0.2 %; RDW Coefficient of Variation 17.4 % (11.5-14.5); RDW Standard Deviation 42.2 fL (36.4-46.3); Red Blood Count 3.67 M/uL (4.20-5.40); White Blood Count 8.52 K/ul (4.8-10.8)
[2023-05-18 06:42] LABS: BUN Creatinine Ratio 12.3 (10-20); Calcium 8.6 mg/dl (8.6-10.3); Creatinine Clr Calc Pharmacy 178.4 ml/min; Est GFR (African American) 144.2 ml/min; Est GFR (Non-African American) 124.4 ml/min; Potassium 3.5 mmol/L (3.5-5.1)
[2023-05-18 07:07] LABS: Mean Platelet Volume 10.1 fL (9.4-12.4); Microcytosis Present; Platelet Count 441 K/uL (130-400); Polychromasia 2+; Target Cells 3+; Tear Drop Cells 1+
[2023-05-18] MEDS: ENOXAPARIN INJ 40 MG/0.4 ML SYR SQ SCH (09:21)
[2023-05-18] MEDS: FERROUS SULFATE 325 MG TAB PO SCH (09:21)
[2023-05-18] MEDS: FOLIC ACID 1 MG TAB PO SCH (09:21)
[2023-05-18] MEDS: ASPIRIN 81 MG CHEW PO SCH (09:21)
[2023-05-18] MEDS: AZITHROMYCIN 250 MG TAB PO SCH (09:21)
[2023-05-18] MEDS: POLYETHYLENE (MIRALAX) 17 GM PACK PO SCH (09:22)
--- NOTE | 2023-05-18 12:12 | Discharge Summary ---
Date of Service date of admission - May 12, 2023 date of discharge - May 18, 2023 Admission HPI Per Admitting Provider Lima is a 32-year-old woman with sickle cell anemia who is from a on 04/30. She has a baby boy. Yesterday she developed pain in right mid to upper back. She thought she slept wrong. It did not get better so she thought she should get it checked out. She says it feels like "muscle spasm" Yesterday it hurt when she moved her R arm around but not today. No falls or trauma, no unusual activity except she now is handling an infant. It hurts worse when she breathes deeply. She said she had not been short of breath. No fevers or cough. No history of VTE. She has never had a sickle pain crisis. On records review her anemia is fairly mild but she says she has SCA not sickle trait. Anemia christopher and is a little worse than baseline but stable today and slightly increased since discharge. She is taking iron supp. She had severe leg swelling with , still has prominent bilateral LE edema but has been slowly improving. As part of ED workup she had CTA chest which was notable for small bilateral pleural effusions. She was stable throughout the day but this afternoon had desat to 87% on room air that resolved to low 90s on 1-2L oxygen. She has been taking daily aspirin peripartum to prevent preeclampsia, OB told her to stay on this awhile. She is generally doing well, had some breast "lumps" last week that resolved with the infant nursing, no breast pain or inflammation now. No N/V/D. No dysuria. No rashes. Principal Diagnosis 1. bilateral basilar pneumonia - improved 2. sickle cell anemia - SC type - without pain or chest crisis 3. recent 4. mild right ventricular enlargement but normal RV function 5. small, b/l effusions - too tiny for intervention Discharge Exam gen - NAD, looks well/nontoxic, no cough, no respiratory distress mouth - MMM, no thrush neck - no JVD heart - RRR, s1 s2, no murmur lungs - decreased BS bases but airation again improved; mild dry, fine rales bases - again improved; no wheezing; no increased work of breathing abd - soft NT ND BS+; no HSM ext - no edema, pulses 2+ b/l psych - a/o x 3 Discharge Data Allergies Allergy/AdvReac Type Severity Reaction Status Date / Time pollen extracts Allergy Mild Congested Verified 05/19/23 22:10 Procedures Performed Echocardiogram: Ordered Studies Chest X-Ray 05/12/23 02:51 XR chest 1V portable HISTORY: Chest pain, nonspecific COMPARISON: Chest 09/20/2022. FINDINGS: There are low lung volumes. No pneumothorax. The heart is mildly enlarged. There are bibasilar patchy densities and small bilateral pleural effusions. There is diffuse interstitial/vascular thickening consistent with mild congestive change. No acute fractures identified. IMPRESSION: 1. Cardiomegaly with mild congestive change and small bilateral pleural effusions. 2. Patchy bibasilar densities may represent atelectasis or pneumonia. ACT 112: Negative or not required by law. Electronically signed by: Guillermo Rock M.D. 05/12/2023 7:16 AM Chest CTA 05/12/23 03:23 Exam(s): CTA CHEST IV Amt: 120 ml EXAM: CT Angiography Chest With Intravenous Contrast CLINICAL HISTORY: Reason for exam: PE, SSD, recent delivery. TECHNIQUE: Axial computed tomographic angiography images of the chest with intravenous contrast. CTDI is 42.39 mGy and DLP is 799.1 mGy-cm. Automated exposure control was utilized for the study. A dose lowering technique was utilized adhering to the principles of ALARA. MIP reconstructed images were created and reviewed. COMPARISON: No relevant prior studies available. FINDINGS: Pulmonary arteries: Unremarkable. No pulmonary embolism. Aorta: No acute findings. No thoracic aortic aneurysm. Lungs: Unremarkable. No mass. No consolidation. Pleural space: There is multisegmental atelectatic changes posterior inferior bilateral lower lobes. Small bilateral pleural effusions as well. No pneumothorax. Heart: Unremarkable. No cardiomegaly. No significant pericardial effusion. No evidence of RV dysfunction. Bones/joints: No acute fracture. No dislocation. Soft tissues: Unremarkable. Lymph nodes: Unremarkable. No enlarged lymph nodes. IMPRESSION: Bilateral pleural effusions and atelectasis as described, no pulmonary emboli seen. Electronically signed by: Cedric Smith MD 05/12/23 07:01 AM Chest X-Ray 05/15/23 09:01 TWO VIEW CHEST CLINICAL HISTORY: Pneumonia. Fever. FINDINGS: PA and lateral chest radiographs are compared to chest x-ray and chest CT dated 05/12/2023. The cardiomediastinal silhouette is unremarkable. There is bibasilar airspace consolidation and small pleural effusions. There is no pneumothorax. The bony thorax appears intact. IMPRESSION: Small pleural effusions and bibasilar consolidation. This is typical for pneumonia/aspiration pneumonitis and appears modestly worsened as compared to previous. Radiographic follow-up to resolution is recommended. ACT 112: Negative or not required by law. Electronically signed by: Jordan Anne M.D. 05/15/2023 10:54 AM Chest Ultrasound 05/15/23 15:50 US effusion-chest/mediastinum CLINICAL HISTORY: R pleuritic chest pain, effusion; eval size of effusion COMPARISON STUDY: Chest CTA 05/12/2023. FINDINGS: There is a small right pleural effusion approximate volume of 126 cc. The effusion appears slightly complex with internal echoes. There is also a small left pleural effusion which also appears slightly complex but is difficult to measure due to its small size. IMPRESSION: Small slightly complex bilateral pleural effusions as described above. ACT 112: Negative or not required by law. Electronically signed by: Guillermo Rock M.D. 05/15/2023 4:51 PM Chest X-Ray 05/17/23 07:30 TWO VIEW CHEST CLINICAL HISTORY: Pneumonia. Fever. FINDINGS: PA and lateral chest radiographs are compared to chest x-ray dictated 05/15/2023 and correlated with chest CT dated 05/12/2023. The cardiomediastinal silhouette is unremarkable. There is bibasilar airspace consolidation and small pleural effusions. There is no pneumothorax. The bony thorax appears intact. IMPRESSION: Small pleural effusions and bibasilar consolidation. This is typical for pneumonia/aspiration pneumonitis and has not significantly changed from 05/15/2023. Continued radiographic follow-up to resolution is recommended. ACT 112: Negative or not required by law. Electronically signed by: Jordan Anne M.D. 05/17/2023 8:55 AM Hospital Course (1) Pneumonia: b/l basilar consolidations on CTA chest seen. She had typical pneumonia symptoms while here including cough, green sputum production, fevers, leukocytosis, etc. Clinical picture was most consistent with pneumonia. Acute chest crisis related to her sickle cell anemia was not suspected. Due to recent hospitalization for for her son could not rule out an aspiration pneumonia vs gram negative pneumonia. 05/14/23 - O2 requirement was largely resolved; moving forward only used it prn and sometimes at night-time. Her leukocytosis resolved and WBC remained normal for several days prior to discharge. She had no fever for 24+ hours prior to discharge. Sputum culture grew normal sheree. Unfortunately blood cultures were not sent at time of ER presentation. Respiratory BioFire panel was fully negative. Patient completed 5 days of zithromax while here. She had 2 days of IV rocephin, then was changed to IV cefepime for expanded gram negative coverage due to persistent fevers. She received nearly 4 days of cefepime prior to discharge home. On day of discharge her O2 sats in room air with walking were 94-95%. She had no dyspnea at rest or with activity. At discharge recommended - * cefdinir 300mg BID x 5 additional days * ongoing pulmonary toilet - flutter valve, etc * repeat 2-view chest x-ray in 1 week (to recheck effusions) * f/u with PCP within 5 days for recheck (2) Pleural effusion: small - b/l. likely parapneumonic. cannot rule out a volume overloaded state but doubt (see #9 below). u/s of effusions checked due to pleuritic pain on right. fluid amount <150cc on right, but "internal septations" seen. left sided effusion was also very tiny/small. clinical picture did not look like an empyema but will need to watch carefully for development of such even following discharge. She will need a follow-up chest x-ray in about 1 week post-discharge to ensure stability of these very small effusions. (3) Back pain: Right sided. Pleuritic in quality. Had the pain off/on during the stay, then resolved about 48 hours prior to discharge. It was not associated with eating. She had no urinary symptoms to suggest a kidney stone. She had no PE on CTA chest. Although she had small effusions on CT/ultrasound empyema on the right was not suspected. (4) Sickle cell anemia: Follows with [facility] - Dr Hector. H/H stable throughout the stay. No evidence of vaso-occlusive pain crisis. Although she had pneumonia her clinical picture was not consistent with acute chest crisis. She is a S-C subtype. Retic count adequate while here. Will need f/u with Dr Hector post-d/c - preferably within 1-2 weeks. (5) anemia: Ferritin was elevated due to acute phase but transferrin sat was 12% c/w Fe deficiency in setting of her Sickle Cell anemia. Remains on iron supplement; cont after discharge. Discharge hemoglobin was 9.2. She was primarily at a hemoglobin of ~10 throughout the visit. She should f/u with [facility] in [place], within 1-2 weeks of discharge. (6) Lactating mother: All medications utilized were checked with pharmacy to ensure safety with . (7) Sleep apnea: patient thinks she had a sleep study in [place] years ago before moving to [place]. she thinks she was told she does have BHUPENDRA but doesn't recall being asked to trial on CPAP, etc. (8) Asthma: No exacerbation during the stay. No wheezing at any time. Can cont albuterol prn. (9) Right ventricular enlargement: Echocardiogram performed this admission showed normal LV function, normal diastolic function, and normal valves. Her RV was mildly enlarged but the RV function was normal. Uncertain if this finding was due to recent vs long-standing, untreated sleep apnea vs other cause. Again there was no evidence of PE on CTA chest. By report she had mild edema of her legs and received a single dose of diuretics early in the stay. For the remainder of the hospitalization she did not examine as decompensated CHF. Peripartum cardiomyopathy / acute CHF was not suspected. [id number], in light of the isolated RV enlargement, I recommended she f/u with [facility] after discharge to have repeat echo, etc. Plan lovenox 40mg daily was used for DVT prophylaxis while here. aspirin 81mg daily was also continued as per prior heme/onc recommendations. Total Time Total Time Spent Total Time Spent (In Minutes): 45 Discharge Plan Discharge Items Patient Disposition: Home - Self-Care Reason For Visit: SHORTNESS OF BREATH Discharge Diagnosis: 1. bilateral pneumonia - improved 2. sickle cell anemia - SC type - follow-up with Dr Hector needed 3. recent 4. mild right ventricular enlargement but NORMAL function of your heart - follow-up with cardiology needed Condition on Discharge: Good Activity: As commented below Activity Comment: Follow all instructions given by your Manager Grocery after your Lifting Comment: Follow any instructions/restrictions given by your Manager Grocery Sexual Activity: Wait until after follow-up appointment Exercise/Sports: Wait until after follow-up appointment Driving/Machine Use: Follow any instructions/restrictions given by your Manager Grocery Non-emergency contact: Primary Care Provider, Specialist and Life Insurance Actuary Call non-emergency contact if: you have any medication questions, your symptoms worsen and you have a fever Follow-up/Referrals: Dafne German MD, FACOG [Physician] - 06/11/23 ( follow-up appointment with plant and machinery valuer ) Nayeli Headley PA-C [Primary Care Provider] - (5-7 days ) Shanae Hector MD [Hospitalist] - (within 2 weeks) Diet: Regular Ambulatory Orders: XR chest 2V PA/lateral (Routine) Timeframe: [id number] Location: Determined by Patient Ordered By: Ever Claros Attending Provider Instructions: Ms Houser, You were hospitalized due to bilateral pneumonia. You made gradual improvement over the course of your stay with IV antibiotics and supportive care. Your fevers have resolved, your elevated white blood cell count is now normal, and you are feeling better. Oxygen has been weaned off, and your oxygen levels both at rest and with walking are normal. Sickle cell anemia has been stable during your stay. Your CT scan of the lungs did NOT show any blood clots (pulmonary emboli). There was some concern about fluid retention when you arrived but this is resolved. Your echocardiogram (heart ultrasound) was largely normal although the right side of your heart was mildly enlarged. I would recommend a referral to cardiology for them to evaluate this. Your family doctor's office can help coordinate this for you. A common cause of right heart enlargement is untreated sleep apnea (snoring during sleep). I am uncertain if this mild right heart enlargement could be -related. Plan to take it easy and rest for at least a week, perhaps longer. You will be tired during the next couple of weeks as you are still recovering from your recent surgery and you will be recovering from your pneumonia as well. Follow ANY and ALL instructions given by your Manager Grocery in regards to activity, exercise, driving, etc. Continue to use the incentive spirometry device and the flutter valve over the next 4-5 days. This will help speed up your recovery. Antibiotics - cefdinir 300mg twice daily x 5 days, first dose TONIGHT. This antibiotic is ok to use while . You will need a repeat chest x-ray in about 1 week. I have placed an order for this. The x-rays can be taken at the hospital. Come to the main hospital entrance to check in to have this x-ray. Follow-up - see separate section Return to [facility] if - * you have fevers over 101 degrees * you develop severe diarrhea * you develop shortness of breath * you develop back pains (similar to what you had when you came to the hospital) * you have chest pains * any other concerns It was our pleasure to care for you! Happy holidays. Enjoy being home with your son. Pending Studies at Discharge: No Stand-Alone Forms: My [facility], Smoking Cessation Medications and DC Order Prescriptions: New cefdinir 300 mg capsule 300 mg PO BID 5 Days Qty: 10 0RF Rx Instructions: first dose PM of 05/18/23. Continued aspirin 81 mg tablet,chewable 81 mg PO QAM WesTab Plus 27 mg iron- 1 mg tablet 1 tab PO QAM folic acid 1 mg tablet 5 mg PO DAILY ferrous sulfate 325 mg (65 mg iron) Tablet 325 mg PO DAILY No Action acetaminophen [Tylenol Extra Strength] 500 mg Tablet 1,000 mg PO Q6H PRN (Reason: Pain) Discharge Orders: Discharge Order (Routine); Ordered 05/18/23 Ordered By: Ever Camilo Admission Data Admit Date/Time: 05/14/23 12:37 Attending Provider: Ever Camilo Admit Provider: Hilda Case Primary Care Provider: Nayeli Headley Other Providers: Hilda Case Other Interventions: Discharge Summary Assessment (RN) Last Done: 05/18/23 12:23 Coding Level of Care Code 11055 INP/OBS DISCH >30 MIN Diagnoses Pneumonia J18.9 Pleural effusion J90 Back pain M54.9 Sickle cell anemia D57.1 anemia O90.81 Lactating mother Z39.1 Sleep apnea G47.30 Asthma J45.909 Right ventricular enlargement I51.7
--- NOTE | 2023-05-27 08:45 | Coding Query ---
CODING QUERY To promote full compliance with coding requirements relating to patient care, provider participation is requested in all cases of innersole fitter uncertainty. Please assist us with the question(s) below: Coding Question(s): There is documentation in the chart and on the Discharge Summary of, "recently post ". Please specify below regarding recently post : ( ) within a 6 week time frame from the ( ) over 6 weeks since the ( ) unknown if within 6 weeks, or over 6 weeks since the Physician's Response(s): Thank you Francisca Marcano Principal Diagnosis: "that condition established after study, to be chiefly responsible for occasioning the admission of the patient to the hospital for care." Co-Existing Principal Diagnosis: "when two or more diagnoses equally meet the criteria for principal diagnosis as determined by the circumstances of admission, diagnostic work up, and/or therapy provided, and the Alphabetic Index, Tabular List, or another coding guideline does not provide sequencing direction, any one of the diagnoses may be sequenced first." "When the physician has documented what appears to be a current diagnosis in the body of the record, but has not included the diagnosis in the final diagnostic statement, the physician should be asked whether the diagnosis should be added." ([facility] 2 QTR90. p3-4) ELVIE
== END 2023-05-18 13:00 | disposition home or self-care (01) | DRG 776 ==
LOC: ED 02:42 → EDINP 02:42 → SUATTDRO 08:11 → 2W 05-13 10:31

== ENCOUNTER 2023-05-19 19:34 | Inpatient (IN) ==
[2023-05-19] MEDS ORDERED: SODIUM CHLORIDE 0.9% 500 ML IV STA (19:54)
[2023-05-19 21:15] LABS: Albumin Level 3.7 gm/dl (3.4-5.0); BUN Creatinine Ratio 8.2 (10-20); Calcium 9.2 mg/dl (8.6-10.3); Creatinine Clr Calc Pharmacy 131.1 ml/min; Est GFR (African American) 128.1 ml/min; Est GFR (Non-African American) 110.5 ml/min; Globulin 3.7 gm/dl (2.5-4.0); Magnesium 1.9 mg/dl (1.7-2.4); Potassium 3.9 mmol/L (3.5-5.1); Total Protein 7.4 gm/dl (6.0-8.3)
[2023-05-19] MEDS ORDERED: CEFEPIME 2,000 MG in SYRINGE 0 ML IV STA (21:16)
[2023-05-19] MEDS ORDERED: SODIUM CHLORIDE 0.9% 1,000 ML IV ONE (21:16)
[2023-05-19] MEDS ORDERED: MoRPHine SULFATE 2 MG/ML CARP IV STA (21:18)
[2023-05-19 21:20] LABS: Troponin I High Sensitivity 3.8 pg/ml (0-14)
--- NOTE | 2023-05-19 21:21 | Emergency Department Note ---
History of Present Illness General Chief complaint: Flank Pain Stated complaint: FLANK PAIN Time Seen by Provider: 05/19/23 21:06 Source: patient, family, RN notes reviewed and old records reviewed (I have reviewed a discharge summary from [id number]) Mode of arrival: ambulatory Limitations: no limitations History of Present Illness Maximum Pain Intensity: 10 This patient is a 32-year-old female who comes in after having right posterior chest/flank pain she was discharged from hospital yesterday after pneumonia she has a small pleural effusion there she also has sickle cell disease and recent . She did have a full work-up in the hospital including CT angiography. He said when she left the hospital yesterday she had no fever or pain now starting last night she had fever and pain again. She does have a temperature 38.1 in triage. She is currently breast-feeding. Denies dysuria hematuria. No chest pain. No headache. Her incision from the is healing well Home Medications Medication Instructions Recorded Confirmed Type aspirin 81 mg chewable tablet 81 mg PO QAM 11/24/22 05/19/23 History vitamin with calcium 1 tab PO QAM 11/24/22 05/19/23 History no.72-iron 27 mg-folic acid 1 mg tablet (WesTab Plus) ferrous sulfate 325 mg (65 mg 325 mg PO DAILY 04/29/23 05/19/23 History iron) tablet folic acid 1 mg tablet 5 mg PO DAILY sickle cell anemia 05/12/23 05/19/23 History cefdinir 300 mg capsule 300 mg PO BID 5 days #10 caps 05/18/23 05/19/23 Rx acetaminophen 500 mg tablet 1,000 mg PO Q6H PRN Pain 05/19/23 05/19/23 History (Tylenol Extra Strength) Allergies Allergy/AdvReac Type Severity Reaction Status Date / Time pollen extracts Allergy Mild Congested Verified 05/19/23 22:10 Past Med/Surg History Medical History Encounter for assessment Sickle cell anemia IUGR (intrauterine growth restriction) affecting care of mother Family history of diabetes mellitus (DM) 2 brothers with Type II Allergic rhinitis Asthma Use of cannabis used prior to - not used during Vitamin D deficiency Sickle cell anemia Follow [facility] Hematology Chronic anemia Surgical History No pertinent past surgical history Family History Grandmother No problems noted. Denies family history of Ovarian cancer Prostate cancer Myocardial infarction Breast cancer Colorectal cancer Social History Smoking Status: Never smoker Second Hand Exposure: No; Do You Dip or Chew Tobacco: No; Hx Alcohol Use: No Hx Substance Use: Yes Prescribed Medications: Marijuana Non-Prescribed Medications Comment: prior to Last Used Substance: Unknown Last Used Substance Other:: per patient used prior to Substance Use Type Other:: denied substance use when asked Preferred Language: Citizen Of [place] Communication Ability: Effective Windows Support Engineer Required: No Beliefs That Will Affect Care: None marital status: Single marital status details: Dee Dee NEGRON not involved Current Living Situation: Family Current Living Situation Comment: brother current occupational status: unemployed 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[employer], 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 [employer] Feels Safe at Home: Yes Dental Care, Regularly: Yes Physical Activity Frequency: Daily Seatbelt Use: always Assistive Devices: Glasses Review of Systems A total of 10 systems reviewed and were otherwise negative Physical Exam Vital Signs Vital Signs - 24 hr 05/19/23 19:48 05/19/23 21:31 05/19/23 21:37 Temperature 38.1 C H 39.3 C H Temperature Source Temporal Artery Scan Oral Pulse Rate 134 H Pulse Rate [Apical] 117 H Pulse Rate from SpO2 Sensor Pulse Rhythm Regular Pulse Rhythm [Apical] Regular Pulse Strength Normal Pulse Strength [Apical] Normal Respiratory Rate 20 22 Respiratory Effort / Characteristics Non-Labored Spontaneous Non-Labored Spontaneous Respiratory Depth Normal Normal Respiratory Pattern Regular Regular Blood Pressure 121/72 Blood Pressure [Right Arm] 91/70 L Blood Pressure Mean 88 Blood Pressure Mean [Right Arm] 77 Blood Pressure Position Sitting Pulse Oximetry 93 95 92 Oxygen Delivery Method Room Air Room Air Room Air Sepsis Recent Fever Within 48 Hours Yes Sepsis New/Unexplained Change in Mental Status No Sepsis Action Taken by Nursing No Action Required Oxygen Flow Rate - Titration Pulse Oximetry Post Tiitration 05/19/23 21:50 05/19/23 21:50 05/19/23 22:00 Temperature Temperature Source Pulse Rate 89 94 H 92 H Pulse Rate [Apical] Pulse Rate from SpO2 Sensor 110 H 114 H Pulse Rhythm Pulse Rhythm [Apical] Pulse Strength Pulse Strength [Apical] Respiratory Rate 36 H 29 H Respiratory Effort / Characteristics Respiratory Depth Respiratory Pattern Blood Pressure Blood Pressure [Right Arm] Blood Pressure Mean Blood Pressure Mean [Right Arm] Blood Pressure Position Pulse Oximetry 92 90 Oxygen Delivery Method Sepsis Recent Fever Within 48 Hours Sepsis New/Unexplained Change in Mental Status Sepsis Action Taken by Nursing Oxygen Flow Rate - Titration Pulse Oximetry Post Tiitration 05/19/23 22:00 05/19/23 22:10 05/19/23 22:18 Temperature Temperature Source Pulse Rate 50 L Pulse Rate [Apical] Pulse Rate from SpO2 Sensor 113 H Pulse Rhythm Pulse Rhythm [Apical] Pulse Strength Pulse Strength [Apical] Respiratory Rate 22 Respiratory Effort / Characteristics Respiratory Depth Respiratory Pattern Blood Pressure 109/64 Blood Pressure [Right Arm] Blood Pressure Mean 77 Blood Pressure Mean [Right Arm] Blood Pressure Position Pulse Oximetry 90 87 L Oxygen Delivery Method Room Air Sepsis Recent Fever Within 48 Hours Sepsis New/Unexplained Change in Mental Status Sepsis Action Taken by Nursing Oxygen Flow Rate - Titration 2 Pulse Oximetry Post Tiitration 93 05/19/23 22:19 05/19/23 22:20 05/19/23 22:30 Temperature 38.9 C H Temperature Source Oral Pulse Rate 115 H 105 H Pulse Rate [Apical] 117 H Pulse Rate from SpO2 Sensor 115 H 105 H Pulse Rhythm Pulse Rhythm [Apical] Regular Pulse Strength Pulse Strength [Apical] Normal Respiratory Rate 19 40 H 35 H Respiratory Effort / Characteristics SOB on Exertion Respiratory Depth Shallow Respiratory Pattern Blood Pressure Blood Pressure [Right Arm] 109/64 Blood Pressure Mean Blood Pressure Mean [Right Arm] 79 Blood Pressure Position Pulse Oximetry 95 96 98 Oxygen Delivery Method Nasal Cannula Sepsis Recent Fever Within 48 Hours Sepsis New/Unexplained Change in Mental Status Sepsis Action Taken by Nursing Oxygen Flow Rate - Titration Pulse Oximetry Post Tiitration 05/19/23 22:40 Temperature Temperature Source Pulse Rate 105 H Pulse Rate [Apical] Pulse Rate from SpO2 Sensor 105 H Pulse Rhythm Pulse Rhythm [Apical] Pulse Strength Pulse Strength [Apical] Respiratory Rate 33 H Respiratory Effort / Characteristics Respiratory Depth Respiratory Pattern Blood Pressure Blood Pressure [Right Arm] Blood Pressure Mean Blood Pressure Mean [Right Arm] Blood Pressure Position Pulse Oximetry 97 Oxygen Delivery Method Sepsis Recent Fever Within 48 Hours Sepsis New/Unexplained Change in Mental Status Sepsis Action Taken by Nursing Oxygen Flow Rate - Titration Pulse Oximetry Post Tiitration General: Well developed well nourished young female who appears mildly uncomfortable but in no acute distress, breathing comfortably on room air. Normal speech HEENT: Normal cephalic atraumatic. Pupils are equal round and reactive to light. Extraocular movements are intact. Oropharynx is pink with moist mucous membranes. No swelling of the mouth lips or tongue. Neck: Supple with a midline trachea. No meningeal signs or stiffness, no JVD or bruits. No Stridor. Chest: Clear to auscultation bilaterally. No wheezes or rhonchi. No increased work of breathing. She does have pain with breathing in the right chest or moving posteriorly. Heart: Regular rate and rhythm without murmurs or gallops. Abdomen: Soft nontender, nondistended without rebound guarding or rigidity. Extremities: No cyanosis clubbing or edema. No calf tenderness or assymetry Spine/Back. Non tender to palpation. No CVA tenderness Skin: Good turgor without rashes. Neurologic exam: Cranial nerves two through 12 are intact. Motor and sensation are intact and symmetrical throughout. Course Administered Medications Potassium Chloride/Sodium Chloride (Normal Saline W/20 Meq Kcl) 20 meq in 1,000 mls @ 100 mls/hr IV .Q10H [facility]; Protocol Stop: 06/18/23 22:44 Last Admin: 05/19/23 23:56 Dose: 100 mls/hr Documented By: AMY Discontinued Medications Acetaminophen (Acetaminophen 325 Mg Tab) 650 mg PO NOW STA Stop: 05/19/23 21:43 Last Admin: 05/19/23 22:13 Dose: 650 mg Documented By: SHUKRI Sodium Chloride (Nss) 500 mls @ 999 mls/hr IV .Q31M STA Stop: 05/19/23 20:24 Last Infusion: 05/19/23 22:29 Dose: Infused Documented By: Admin: 05/19/23 20:10 Dose: 999 mls/hr Documented By: RUSH Sodium Chloride (Nss) 1,000 mls @ 999 mls/hr IV .Q1H1M ONE Stop: 05/19/23 22:16 Last Infusion: 05/19/23 22:58 Dose: Infused Documented By: Admin: 05/19/23 21:23 Dose: 999 mls/hr Documented By: SHUKRI Cefepime HCl 2,000 mg/ Syringe 20 mls @ 5 mls/min IV NOW STA; Protocol Stop: 05/19/23 21:19 Last Admin: 05/19/23 21:54 Dose: 5 mls/min Documented By: SHUKRI Sodium Chloride (Nss) 1,000 mls @ 999 mls/hr IV .Q1H1M ONE Stop: 05/19/23 22:49 Last Admin: 05/19/23 22:39 Dose: Not Given Documented By: SHUKRI Morphine Sulfate (Morphine Sulfate 2 Mg/Ml Carp) 2 mg IV NOW STA Stop: 05/19/23 21:19 Last Admin: 05/19/23 21:26 Dose: 2 mg Documented By: SHUKRI Medical Decision Making Differential Diagnosis Pneumonia, sepsis, sickle cell disease, pleural effusion, complication related to , pain, dehydration Medical Records Attestation: I reviewed the patient's medical records. Home Medications Current Medication List: was personally reviewed by me Laboratory Data Attestation: I reviewed the patient's lab results. 05/19/23 20:35 05/19/23 20:35 Lab Results 05/19/23 Range/Units 20:35 WBC 15.37 H (4.8-10.8) K/ul RBC 4.15 L (4.20-5.40) M/uL Hgb 10.3 L (12.0-16.0) g/dl Hct 29.3 L (37.0-47.0) % MCV 70.6 L (80.0-100.0) fL MCH 24.8 L (25.0-34.0) pg MCHC 35.2 (32.0-36.0) g/dL RDW Std Deviation 44.9 (36.4-46.3) fL RDW Coeff of Aletha 18.0 H (11.5-14.5) % Plt Count 585 H (130-400) K/uL MPV 10.4 (9.4-12.4) fL Immature Gran % (Auto) 0.7 % Neut % (Auto) 81.1 % Lymph % (Auto) 8.4 % [place] % (Auto) 6.2 % Eos % (Auto) 2.8 % Baso % (Auto) 0.8 % Neut # (Auto) 12.47 H (1.40-6.50) K/uL Lymph # (Auto) 1.29 (1.20-3.40) K/uL [place] # (Auto) 0.96 H (0.11-0.59) K/uL Eos # (Auto) 0.43 (0.00-0.50) K/uL Baso # (Auto) 0.12 (0.00-0.20) K/uL Immature Gran # (Auto) 0.10 (0.01-0.20) K/uL Absolute Nucleated RBC 0.04 (0.00-0.12) K/uL Nucleated RBC % (auto) 0.3 % PT 11.1 (9.0-12.0) Seconds INR 1.0 (0.9-1.1) APTT 26.8 (21.0-31.0) Seconds PTT Ratio 1.0 Sodium 138 (136-145) mmol/L Potassium 3.9 (3.5-5.1) mmol/L Chloride 107 (98-107) mmol/L Carbon Dioxide 21 (21-32) mmol/L Anion Gap 10 (3-11) BUN 6 (6-23) mg/dl Creatinine 0.73 (0.6-1.2) mg/dl Est Cr Clr Drug Dosing 131.1 ml/min Est GFR ( Amer) 128.1 ml/min Est GFR (Non-Af Amer) 110.5 ml/min BUN/Creatinine Ratio 8.2 L (10-20) Glucose 100 H (70-99(Fasting)) mg/dl Lactate 1.4 (0.4-2.0) mmol/L Calcium 9.2 (8.6-10.3) mg/dl Magnesium 1.9 (1.7-2.4) mg/dl Total Bilirubin 1.0 (0.2-1.0) mg/dl AST 22 (13-39) U/L ALT 9 (7-52) U/L Alkaline Phosphatase 76 (34-104) U/L Troponin I High Sens 3.8 (0-14) pg/ml Total Protein 7.4 (6.0-8.3) gm/dl Albumin 3.7 (3.4-5.0) gm/dl Globulin 3.7 (2.5-4.0) gm/dl Albumin/Globulin Ratio 1.0 (0.9-2) Procalcitonin < 0.05 (0-0.5) ng/ml Imaging Data Attestation: I personally reviewed and interpreted this imaging study as follows: My Impression: Chest x-rayupon my interpretation independently done she does have some haziness in the right base consistent with either infiltrate or effusion. ECG Data Attestation: I personally reviewed and interpreted this ECG as follows: Indication: + chest pain Rate (beats per minute): 122 Rhythm: + sinus tachycardia ECG Intervals/blocks: + Normal QRS, + Normal QT and + Normal OR ECG [place]: + Normal ECG ST segments: + Normal ST segments ECG Findings: + Other (Somewhat low voltage); no PACs or no PVCs Comparison ECG Date: from (05/12/2022) Change: no significant change (With exception rate has increased) MDM Narrative This patient comes in as described above. She was placed in room C11. She is here for treatment evaluation of right flank pain. She has a recently diagnosed pneumonia and pleural effusion she was discharged yesterday and since then developed a fever again and pain. She had a full sepsis type work-up . IV access was established with hydrated IV normal saline. I did give her cefepime 2 g IV she had received this in the hospital as well. I also gave her morphine 2 mg IV. She seemed a little more comfortable with this her blood pressure is running on the low side she did have a reading in the 90s was mostly in the 100s. She did spike a temperature 39 she was given a Tylenol as well. Has been covered with antibiotics. Her chest x-ray does show some haziness in the base she has a known pneumonia/pleural effusion there she also has underlying sickle cell disease which makes treatment even more complicated. I do think she needs to be admitted/observed for further treatment and evaluation. Her white count is elevated at 15 however lactic acid and procalcitonin are not elevated. She will be admitted/observed I have discussed the case at length with Dr. Reddy who saw in the ER for these measures. Continuous hospital monitor: Orders placed in EMR for continuous hospital monitor: Pulm evaluation patient noted to be in sinus tachycardia with a rate of 110. Impression & Plan Pneumonia, Sickle cell anemia, Sepsis, Pleural effusion Discharge Plan Visit Data Chief Complaint: Flank Pain Stated Complaint: FLANK PAIN ED Provider: Nino Palma Discharge Problem: Pneumonia, Sickle cell anemia, Sepsis, Pleural effusion Patient Disposition: Admitted As Inpatient Discharge Instructions Interventions: ED Discharge Assessment Last Done: 05/20/23 00:27 Discharge Problem: Pneumonia Qualifiers: Pneumonia type: due to unspecified organism Laterality: right Lung location: l ower lobe of lung Qualified Code(s): J18.9 - Pneumonia, unspecified organism Sickle cell anemia Qualifiers: Sickle-cell associated disorders: with unspecified crisis Qualified Code(s): D 57.00 - Hb-SS disease with crisis, unspecified Sepsis Qualifiers: Sepsis acute organ dysfunction status: unspecified
[2023-05-19 21:27] LABS: Partial Thromboplastin Time 26.8 Seconds (21.0-31.0); Prothrombin Time 11.1 Seconds (9.0-12.0)
[2023-05-19] MEDS ORDERED: ACETAMINOPHEN 325 MG TAB PO STA (21:42)
[2023-05-19 21:51] LABS: Appearance Urine Clear (Clear); Bacteria Urine Automated Negative (Negative); Bilirubin Urine Negative (Negative); Blood Urine 3+ (Negative); Color Urine Yellow; Glucose Urine UA Negative (Negative); Ketones Urine Trace (Negative); Leukocyte Esterase Urine Trace (Negative); Nitrite Urine Negative (Negative); Protein Urine Negative (Negative); RBC Urine Automated >30 /hpf (0-4); Specific Gravity Urine 1.014 (1.000-1.030); Urobilinogen Urine Negative (Negative); pH Urine 5.5 (4.5-7.5)
[2023-05-19] MEDS: SODIUM CHLORIDE 0.9% 1,000 ML IV ONE ×2 (22:17→22:39)
[2023-05-19 22:21] LABS: Basophils # (auto) 0.12 K/uL (0.00-0.20); Basophils % (auto) 0.8 %; Eosinophils # (auto) 0.43 K/uL (0.00-0.50); Eosinophils % (auto) 2.8 %; Hematocrit (blood only) 29.3 % (37.0-47.0); Hemoglobin 10.3 g/dl (12.0-16.0); Immature Granulocytes % (auto) 0.7 %; Lymphocytes # (auto) 1.29 K/uL (1.20-3.40); Lymphocytes % (auto) 8.4 %; Mean Corpuscular Hemoglobin 24.8 pg (25.0-34.0); Mean Corpuscular Hgb Conc 35.2 g/dL (32.0-36.0); Mean Corpuscular Volume 70.6 fL (80.0-100.0); Mean Platelet Volume 10.4 fL (9.4-12.4); Monocytes # (auto) 0.96 K/uL (0.11-0.59); Monocytes % (auto) 6.2 %; Neutrophils # (auto) 12.47 K/uL (1.40-6.50); Neutrophils % (auto) 81.1 %; Nucleated RBC # (auto) 0.04 K/uL (0.00-0.12); Nucleated RBC % (auto) 0.3 %; Platelet Count 585 K/uL (130-400); RDW Standard Deviation 44.9 fL (36.4-46.3); Red Blood Count 4.15 M/uL (4.20-5.40); White Blood Count 15.37 K/ul (4.8-10.8)
--- NOTE | 2023-05-19 22:50 | History & Physical Report ---
Date of Service May 19, 2023 Assessment & Plan (1) Pleural effusion: (2) Sepsis: (3) Pneumonia: (4) Sickle cell anemia: Plan Bibasilar pneumonia- Patient was discharged from the hospital after admission from 05/12-05/18/2023 for bibasilar pneumonia She had been afebrile from within 24 hours prior to discharge. During admission she spent the first 2 days on ceftriaxone and the following 3 days on cefepime. She spent the entire 5 days on azithromycin IV She was discharged on cefdinir 3 mg p.o. twice daily for anticipated 5-day course Patient will be admitted on cefepime 2 g IV every 12 hours Order MRSA swab Duonebs every 4 hours while awake and every 2 hours when necessary. Guaifenesin extended release 12 mg p.o. twice daily Methylprednisolone 40 mg IV every 8 hours NSS + KCl 20 mill equivalents at 100 mL/h x 1 L Acetaminophen 1 g p.o. every 6 hours as needed pain or fever Oxycodone 5 mg p.o. every 4 hours as needed for moderate to severe pain Pleural effusion- Chest x-ray not significantly different compared to recent discharge Sickle cell anemia- Follows with [facility] hematology Dr. Hector History of Present Illness Chief Complaint: The patient reports the recurrence of chest pain, back pain and fever after being discharged from the hospital on 05/18 on cefdinir 300 mg p.o. twice daily as follow-up treatment for bibasilar pneumonia Primary Care Provider: NO PCP The patient is a 32-year-old female with a past medical history including pleural effusion, sickle cell anemia, allergic rhinitis, use of cannabis, vitamin D deficiency, and recent admission for by basilar pneumonia from 05/12- 05/18/2023. This pneumonia was treated with first 2 days of ceftriaxone, with the next 3 days of cefepime, and 5 days continuously of azithromycin IV. Allergies Allergy/AdvReac Type Severity Reaction Status Date / Time pollen extracts Allergy Mild Congested Verified 05/19/23 22:10 Home Medications Medication Instructions Recorded Confirmed Type aspirin 81 mg chewable tablet 81 mg PO QAM 11/24/22 05/19/23 History vitamin with calcium 1 tab PO QAM 11/24/22 05/19/23 History no.72-iron 27 mg-folic acid 1 mg tablet (WesTab Plus) ferrous sulfate 325 mg (65 mg 325 mg PO DAILY 04/29/23 05/19/23 History iron) tablet folic acid 1 mg tablet 5 mg PO DAILY sickle cell anemia 05/12/23 05/19/23 History cefdinir 300 mg capsule 300 mg PO BID 5 days #10 caps 05/18/23 05/19/23 Rx acetaminophen 500 mg tablet 1,000 mg PO Q6H PRN Pain 05/19/23 05/19/23 History (Tylenol Extra Strength) Past Med/Surg History Medical History Encounter for assessment Sickle cell anemia IUGR (intrauterine growth restriction) affecting care of mother Family history of diabetes mellitus (DM) 2 brothers with Type II Allergic rhinitis Asthma Use of cannabis used prior to - not used during Vitamin D deficiency Sickle cell anemia Follow [facility] Hematology Chronic anemia Surgical History No pertinent past surgical history Family History Grandmother No problems noted. Denies family history of Ovarian cancer Prostate cancer Myocardial infarction Breast cancer Colorectal cancer Social History Smoking Status: Never smoker Second Hand Exposure: No; Do You Dip or Chew Tobacco: No; Hx Alcohol Use: No Hx Substance Use: Yes Prescribed Medications: Marijuana Non-Prescribed Medications Comment: prior to Last Used Substance: Unknown Last Used Substance Other:: prior to Substance Use Type Other:: denied substance use when asked Preferred Language: Mauritian Communication Ability: Effective Waxer Required: No Beliefs That Will Affect Care: None marital status: Single marital status details: Dee Dee [place] NEGRON not involved Current Living Situation: Parent and Other Current Living Situation Comment: Lives with Mom and her child current occupational status: unemployed 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[employer], 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 [employer] Feels Safe at Home: Yes Safety Concerns: Feels Safe At This Time Dental Care, Regularly: Yes Physical Activity Frequency: Daily Seatbelt Use: always Assistive Devices: None and Other Assistive Devices Comment: pt has breast pump with her Review of Systems Review of Systems: The patient denies palpitations, lower extremity swelling, chills, sweats, weight change, fatigue, nausea, vomiting, diarrhea , constipation, abdominal pain, pelvic pain, blood in urine or stool, dysuria, urinary frequency or urgency, lightheadedness, dizziness, headache, memory loss, loss of consciousness, rash, abnormal bruising or bleeding, imbalance, focal or generalized weakness, numbness or tingling in arms or legs, generalized arthralgias or myalgias, neck pain, or night sweats. The review of systems is otherwise negative other than for that already noted above, and at least 10 systems have been reviewed. Physical Exam Physical Exam: The patient is awake, alert and oriented 3, well developed and well nourished, normocephalic and atraumatic, lying in bed and in no acute distress. HEENT--PERRL, EOMI, mucous membranes and oropharynx mildly dry. Neck--supple. No JVD. No bruits. Thyroid normal, trachea midline, no adenopathy. Heart--normal S1 and S2. No murmurs, rubs or gallops. Lungs--few coarse breath sounds bilaterally. No respiratory distress, no accessory muscle use. Abdomen--normal bowel sounds and soft. Nontender. Nondistended Extremities--no cyanosis or clubbing. No edema. Dermatologic--normal skin turgor, normal color, no abnormal lymph nodes, no rash. Neurologic--cranial nerves II through XII grossly intact. Rheumatologic--normal range of motion. Psychiatric--normal affect. Results & Data Results & Data Vital Signs (Past 12 Hours) Vital Signs Temp Pulse Pulse Resp BP BP Pulse Ox 05/19/23 22:19 38.9 C H 117 H 19 109/64 115 H 05/19/23 22:18 87 L 05/19/23 21:37 92 05/19/23 21:31 39.3 C H 117 H 22 91/70 L 95 05/19/23 19:48 38.1 C H 134 H 20 121/72 93 O2 Del Method 05/19/23 22:19 Nasal Cannula 05/19/23 22:18 Room Air 05/19/23 21:37 Room Air 05/19/23 21:31 Room Air 05/19/23 19:48 Room Air Laboratory Results Laboratory Results WBC 15.37 K/ul (4.8-10.8) H 05/19/23 20:35 RBC 4.15 M/uL (4.20-5.40) L 05/19/23 20:35 Hgb 10.3 g/dl (12.0-16.0) L 05/19/23 20:35 Hct 29.3 % (37.0-47.0) L 05/19/23 20:35 MCV 70.6 fL (80.0-100.0) L 05/19/23 20:35 MCH 24.8 pg (25.0-34.0) L 05/19/23 20:35 MCHC 35.2 g/dL (32.0-36.0) 05/19/23 20: RDW Std Deviation 44.9 fL (36.4-46.3) 05/19/23 20: RDW Coeff of Aletha 18.0 % (11.5-14.5) H 05/19/23 20:35 Plt Count 585 K/uL (130-400) H 05/19/23 20:35 MPV 10.4 fL (9.4-12.4) 05/19/23 20:35 Immature Gran % (Auto) 0.7 % 05/19/23 20:35 Neut % (Auto) 81.1 % 05/19/23 20:35 Lymph % (Auto) 8.4 % 05/19/23 20:35 [place] % (Auto) 6.2 % 05/19/23 20:35 Eos % (Auto) 2.8 % 05/19/23 20:35 Baso % (Auto) 0.8 % 05/19/23 20:35 Neut # (Auto) 12.47 K/uL (1.40-6.50) H 05/19/23 20:35 Lymph # (Auto) 1.29 K/uL (1.20-3.40) 05/19/23 20:35 [place] # (Auto) 0.96 K/uL (0.11-0.59) H 05/19/23 20:35 Eos # (Auto) 0.43 K/uL (0.00-0.50) 05/19/23 20:35 Baso # (Auto) 0.12 K/uL (0.00-0.20) 05/19/23 20:35 Immature Gran # (Auto) 0.10 K/uL (0.01-0.20) 05/19/23 20:35 Absolute Nucleated RBC 0.04 K/uL (0.00-0.12) 05/19/23 20:35 Nucleated RBC % (auto) 0.3 % 05/19/23 20:35 PT 11.1 Seconds (9.0-12.0) 05/19/23 20:35 INR 1.0 (0.9-1.1) 05/19/23 20:35 APTT 26.8 Seconds (21.0-31.0) 05/19/23 20:35 PTT Ratio 1.0 05/19/23 20:35 Sodium 138 mmol/L (136-145) 05/19/23 20:35 Potassium 3.9 mmol/L (3.5-5.1) 05/19/23 20:35 Chloride 107 mmol/L (98-107) 05/19/23 20:35 Carbon Dioxide 21 mmol/L (21-32) 05/19/23 20:35 Anion Gap 10 (3-11) 05/19/23 20:35 BUN 6 mg/dl (6-23) 05/19/23 20:35 Creatinine 0.73 mg/dl (0.6-1.2) 05/19/23 20:35 Est Cr Clr Drug Dosing 131.1 ml/min 05/19/23 20:35 Est GFR ( Amer) 128.1 ml/min 05/19/23 20:35 Est GFR (Non-Af Amer) 110.5 ml/min 05/19/23 20:35 BUN/Creatinine Ratio 8.2 (10-20) L 05/19/23 20:35 Glucose 100 mg/dl (70-99(Fasting)) H 05/19/23 20:35 Lactate 1.4 mmol/L (0.4-2.0) 05/19/23 20:35 Calcium 9.2 mg/dl (8.6-10.3) 05/19/23 20:35 Magnesium 1.9 mg/dl (1.7-2.4) 05/19/23 20:35 Total Bilirubin 1.0 mg/dl (0.2-1.0) 05/19/23 20:35 AST 22 U/L (13-39) 05/19/23 20:35 ALT 9 U/L (7-52) 05/19/23 20:35 Alkaline Phosphatase 76 U/L (34-104) 05/19/23 20:35 Troponin I High Sens 3.8 pg/ml (0-14) 05/19/23 20:35 Total Protein 7.4 gm/dl (6.0-8.3) 05/19/23 20:35 Albumin 3.7 gm/dl (3.4-5.0) 05/19/23 20:35 Globulin 3.7 gm/dl (2.5-4.0) 05/19/23 20:35 Albumin/Globulin Ratio 1.0 (0.9-2) 05/19/23 20:35 Procalcitonin < 0.05 ng/ml (0-0.5) 05/19/23 20:35 Urine Color Yellow 05/19/23 Unknown Urine Appearance Clear (Clear) 05/19/23 Unknown Urine pH 5.5 (4.5-7.5) 05/19/23 Unknown Ur Specific [place] 1.014 (1.000-1.030) 05/19/23 Unknown Urine Protein Negative (Negative) 05/19/23 Unknown Urine Glucose (UA) Negative (Negative) 05/19/23 Unknown Urine Ketones Trace (Negative) H 05/19/23 Unknown Urine Blood 3+ (Negative) H 05/19/23 Unknown Urine Nitrite Negative (Negative) 05/19/23 Unknown Urine Bilirubin Negative (Negative) 05/19/23 Unknown Urine Urobilinogen Negative (Negative) 05/19/23 Unknown Ur Leukocyte Esterase Trace (Negative) H 05/19/23 Unknown Urine WBC (Auto) 1-5 /hpf (0-5) 05/19/23 Unknown Urine RBC (Auto) >30 /hpf (0-4) H 05/19/23 Unknown U Hyaline Cast (Auto) 1-5 /lpf (0-5) 05/19/23 Unknown U Epithel Cells (Auto) 10-20 /lpf (0-5) H 05/19/23 Unknown Urine Bacteria (Auto) Negative (Negative) 05/19/23 Unknown Code Status & VTE Plan Code Status Full code VTE Prophylaxis Plan VTE Prophylaxis will be ordered: Yes PG Care Time/CCT Total # of Minutes Spent Total Time Spent with Patient: Total time spent is greater than 50% in coordination of care (as documented) at patient's floor/unit and/or counseling patient: Coding Level of Care Code 95670 INT INP/OBS CARE MIN Diagnoses Pleural effusion J90 Sepsis A41.9 Sepsis acute organ dysfunction status: unspecified Pneumonia J18.9 Laterality: right Lung location: lower lobe of lung Pneumonia type: due to unspecified organism Sickle cell anemia D57.00 Sickle-cell associated disorders: with unspecified crisis (2) Sepsis Sepsis acute organ dysfunction status: unspecified (3) Pneumonia Laterality: right Lung location: lower lobe of lung Pneumonia type: due to unspecified organism Qualified Code(s): J18.9 - Pneumonia, unspecified organism (4) Sickle cell anemia Sickle-cell associated disorders: with unspecified crisis Qualified Code(s): D57.00 - Hb-SS disease with crisis, unspecified
[2023-05-19] MEDS: NSS + 20MEQ KCL 20 MEQ/1,000 ML BAG IV SCH (23:56)
[2023-05-20] MEDS ORDERED: ACETAMINOPHEN 500 MG TAB PO PRN (00:43)
[2023-05-20] MEDS ORDERED: ONDANSETRON INJ 2 MG/ML 2 ML VIAL IV PRN (00:43)
[2023-05-20] MEDS ORDERED: methylPREDNISolone 40 MG in SYRINGE 0 ML IV SCH (02:00)
[2023-05-20] MEDS: oxyCODONE HCL IR 5 MG TAB (IMMEDIATE RELEASE) PO PRN ×4 (02:05→20:51)
[2023-05-20] MEDS ORDERED: MoRPHine SULFATE 2 MG/ML CARP IV STA (03:01)
[2023-05-20] MEDS: CEFEPIME 2,000 MG in SYRINGE 0 ML IV SCH ×3 (06:14→21:32)
[2023-05-20] MEDS: AZITHROMYCIN 500 MG in DEXTROSE 5% 250 ML IV SCH (06:21)
[2023-05-20 07:17] LABS: Albumin Level 3.4 gm/dl (3.4-5.0); BUN Creatinine Ratio 12.7 (10-20); Bilirubin,Total 0.7 mg/dl (0.2-1.0); Creatinine Clr Calc Pharmacy 182.8 ml/min; Est GFR (African American) 145.9 ml/min; Est GFR (Non-African American) 125.9 ml/min; Globulin 3.3 gm/dl (2.5-4.0); Potassium 4.1 mmol/L (3.5-5.1); Total Protein 6.7 gm/dl (6.0-8.3)
[2023-05-20 07:30] LABS: Basophils # (auto) 0.07 K/uL (0.00-0.20); Basophils % (auto) 0.4 %; Eosinophils # (auto) 0.02 K/uL (0.00-0.50); Eosinophils % (auto) 0.1 %; Hematocrit (blood only) 27.3 % (37.0-47.0); Hemoglobin 9.6 g/dl (12.0-16.0); Immature Granulocytes % (auto) 0.6 %; Lymphocytes # (auto) 0.69 K/uL (1.20-3.40); Lymphocytes % (auto) 4.3 %; Mean Corpuscular Hemoglobin 24.8 pg (25.0-34.0); Mean Corpuscular Hgb Conc 35.2 g/dL (32.0-36.0); Mean Corpuscular Volume 70.5 fL (80.0-100.0); Monocytes # (auto) 0.25 K/uL (0.11-0.59); Monocytes % (auto) 1.5 %; Neutrophils # (auto) 15.04 K/uL (1.40-6.50); Neutrophils % (auto) 93.1 %; Nucleated RBC # (auto) 0.03 K/uL (0.00-0.12); Nucleated RBC % (auto) 0.2 %; Platelet Count 565 K/uL (130-400); Polychromasia 2+; RDW Coefficient of Variation 17.6 % (11.5-14.5); RDW Standard Deviation 44.4 fL (36.4-46.3); Red Blood Count 3.87 M/uL (4.20-5.40); Target Cells 3+; White Blood Count 16.17 K/ul (4.8-10.8)
[2023-05-20] MEDS: ALBUT/IPRATROP 3MG/0.5MG NEB 3 ML VIAL NEB SCH ×4 (07:42→19:54)
--- NOTE | 2023-05-20 08:11 | Hospitalist Progress Note ---
Date of Service May 20, 2023 Assessment & Plan (1) Sepsis: Plan: sepsis secondary to pneumonia, recent discharge after 5 days of cephalosporin(rocephin then cefepime) + azithromycin, dc on cefdininr now returns with pleural effusion too small to have thoracentesis sepsis criteria on presentation has no gyne sx to consider retained products of conception, no breast changes for mastitis, on cefepime and azithro abnormal Ua, recently post check urine culture (2) Sickle cell anemia: Plan: Sickle cell anemia-pt states has never been hospitalized for crisis Follows with [facility] hematology Dr. Hector supportive care with oxygen, pain control and follow anemia Plan nursing concern for post depression, educated and given literature Admission and Anticipated Discharge Date Admission Date: May 19, 2023 Subjective patient still having chest discomfort. States she has never had sickle cell crisis before in her life. She became more uncomfortable no longer we talked about it in the room. Adjusting pain medications to improve her comfort. She says this feels just like when she had pneumonia. She was concerned about her pleural effusion which I told her will not be drained Physical Exam Physical Exam: card exam is regular lungs may have some scant rhonchi at the bases but otherwise are clear no focal Aralast no wheezes no chest wall was reviewed reproducible tenderness Results & Data Results & Data Vital Signs (Past 12 Hours) Vital Signs Temp Pulse Pulse Resp BP BP Pulse Ox 05/20/23 07:46 86 16 96 05/20/23 07:41 05/20/23 04:35 98.6 F 81 18 108/69 96 05/20/23 01:12 05/20/23 01:12 99.9 F H 96 H 18 105/63 96 05/20/23 00:46 91 H 05/20/23 00:43 05/20/23 00:43 99.9 F H 96 H 18 105/63 96 05/20/23 00:27 99.9 F H 103 H 19 108/57 L 97 05/20/23 00:00 99.9 F H 103 H 20 108/57 L 97 05/19/23 23:30 101 H 34 H 96 05/19/23 23:20 102 H 33 H 96 05/19/23 23:10 104 H 35 H 97 05/19/23 23:00 107 H 31 H 96 05/19/23 22:53 99.9 F H 102 H 20 108/57 L 96 05/19/23 22:50 108 H 39 H 97 05/19/23 22:40 105 H 33 H 97 05/19/23 22:30 105 H 35 H 98 05/19/23 22:20 115 H 40 H 96 05/19/23 22:19 102.0 F H 117 H 19 109/64 95 05/19/23 22:18 87 L 05/19/23 22:10 50 L 22 90 05/19/23 22:00 109/64 05/19/23 22:00 92 H 29 H 90 05/19/23 21:50 94 H 05/19/23 21:50 89 36 H 92 05/19/23 21:37 92 05/19/23 21:31 102.7 F H 117 H 22 91/70 L 95 Pulse Ox O2 Del Method O2 Del Method O2 Flow Rate O2 Flow Rate 05/20/23 07:46 Nasal Cannula 2 05/20/23 07:41 Nasal Cannula 2 05/20/23 04:35 Nasal Cannula 2 05/20/23 01:12 Nasal Cannula 2 05/20/23 01:12 Nasal Cannula 2 05/20/23 00:46 05/20/23 00:43 96 Nasal Cannula 2 05/20/23 00:43 Nasal Cannula 2 05/20/23 00:27 Nasal Cannula 2 05/20/23 00:00 Nasal Cannula 2 05/19/23 23:30 05/19/23 23:20 05/19/23 23:10 05/19/23 23:00 05/19/23 22:53 Nasal Cannula 2 05/19/23 22:50 05/19/23 22:40 05/19/23 22:30 05/19/23 22:20 05/19/23 22:19 Nasal Cannula 05/19/23 22:18 Room Air 05/19/23 22:10 05/19/23 22:00 05/19/23 22:00 05/19/23 21:50 05/19/23 21:50 05/19/23 21:37 Room Air 05/19/23 21:31 Room Air Laboratory Results reviewed CBC reviewed chemistry PG Care Time/CCT Total # of Minutes Spent Total Time Spent with Patient: Total time spent is greater than 50% in coordination of care (as documented) at patient's floor/unit and/or counseling patient: Coding Level of Care Code 40385 SUB INP/OBS CARE 2MIN Diagnoses Sepsis A41.9 Sepsis acute organ dysfunction status: unspecified Sickle cell anemia D57.00 Sickle-cell associated disorders: with unspecified crisis (1) Sepsis Sepsis acute organ dysfunction status: unspecified (2) Sickle cell anemia Sickle-cell associated disorders: with unspecified crisis Qualified Code(s): D57.00 - Hb-SS disease with crisis, unspecified
--- NOTE | 2023-05-20 08:19 | XRay Report ---
SINGLE VIEW CHEST CLINICAL HISTORY: Sepsis. Pneumonia. FINDINGS: 2 PA chest radiographs are compared to chest x-ray dictated 05/17/2023 and correlated with chest CT dated 05/12/2023. The cardiomediastinal silhouette is unremarkable. There is bibasilar airsp linden consolidation and small pleural effusions. There is no pneumothorax. The bony thorax appears inta ct. IMPRESSION: Small pleural effusions and bibasilar consolidation, not significantly changed from 05/17. Continued radiographic follow-up to resolution is recommended. ACT 112: Negative or not required by law. Electronically signed by: Jordan Anne M.D. 05/20/2023 8:17 AM
[2023-05-20] MEDS: ASPIRIN 81 MG CHEW PO SCH (08:23)
[2023-05-20] MEDS: PRENATAL VITAMIN 1 TAB PO SCH (08:23)
[2023-05-20] MEDS: FERROUS SULFATE 325 MG TAB PO SCH (08:24)
[2023-05-20] MEDS: FOLIC ACID 1 MG TAB PO SCH (08:24)
[2023-05-20] MEDS ORDERED: guaiFENesin 600 MG TABCR PO SCH (09:00)
[2023-05-20] MEDS ORDERED: AZITHROMYCIN 500 MG in DEXTROSE 5% 250 ML IV SCH (09:00)
[2023-05-20] MEDS: NSS + 20MEQ KCL 20 MEQ/1,000 ML BAG IV SCH (10:28)
[2023-05-20] MEDS: SODIUM CHLORIDE 0.9% 1,000 ML IV SCH ×2 (10:28→21:31)
[2023-05-20] MEDS ORDERED: MoRPHine SULFATE 2 MG/ML CARP IV PRN (11:59)
--- NOTE | 2023-05-20 19:29 | Electrocardiogram Report ---
Test Reason : Blood Pressure : / mmHG Vent. Rate : 122 BPM Atrial Rate : 122 BPM P-R Int : 154 ms QRS Dur : 062 ms QT Int : 308 ms P-R-T Axes : 047 -40 055 degrees QTc Int : 438 ms Sinus tachycardia Possible Left atrial enlargement Left axis deviation Poor R wave progression, consider anterior VA vs. lead placement vs. LVH Abnormal ECG When compared with ECG of 12-MAY-2023 03:08, Vent. rate has increased BY 43 BPM QRS axis Shifted left Borderline criteria for Inferior infarct are no longer Present Confirmed by Tate Armando ([id number]) on 05/20/2023 7:29:19 PM Referred By: REFERRED SELF Confirmed By:Juan Armando
[2023-05-20] MEDS: ACETAMINOPHEN 500 MG TAB PO SCH (20:51)
[2023-05-21] MEDS: AZITHROMYCIN 500 MG in DEXTROSE 5% 250 ML IV SCH (06:03)
[2023-05-21] MEDS: CEFEPIME 2,000 MG in SYRINGE 0 ML IV SCH ×3 (06:05→21:17)
[2023-05-21] MEDS: ALBUT/IPRATROP 3MG/0.5MG NEB 3 ML VIAL NEB SCH ×4 (07:08→19:19)
[2023-05-21 08:21] LABS: BUN Creatinine Ratio 12.5 (10-20); Bilirubin,Total 0.8 mg/dl (0.2-1.0); Calcium 8.2 mg/dl (8.6-10.3); Creatinine Clr Calc Pharmacy 179.9 ml/min; Est GFR (Non-African American) 125.1 ml/min; Globulin 2.9 gm/dl (2.5-4.0); Potassium 3.5 mmol/L (3.5-5.1); Total Protein 5.9 gm/dl (6.0-8.3)
[2023-05-21 08:26] LABS: Basophils # (auto) 0.15 K/uL (0.00-0.20); Basophils % (auto) 1.1 %; Eosinophils # (auto) 0.23 K/uL (0.00-0.50); Eosinophils % (auto) 1.6 %; Hematocrit (blood only) 23.1 % (37.0-47.0); Hemoglobin 8.3 g/dl (12.0-16.0); Immature Granulocytes % (auto) 0.7 %; Lymphocytes # (auto) 2.63 K/uL (1.20-3.40); Lymphocytes % (auto) 18.6 %; Mean Corpuscular Hemoglobin 24.6 pg (25.0-34.0); Mean Corpuscular Hgb Conc 35.9 g/dL (32.0-36.0); Mean Corpuscular Volume 68.5 fL (80.0-100.0); Monocytes % (auto) 9.9 %; Neutrophils # (auto) 9.61 K/uL (1.40-6.50); Neutrophils % (auto) 68.1 %; Nucleated RBC # (auto) 0.04 K/uL (0.00-0.12); Nucleated RBC % (auto) 0.3 %; Platelet Count 520 K/uL (130-400); Polychromasia 2+; RDW Coefficient of Variation 18.2 % (11.5-14.5); RDW Standard Deviation 44.2 fL (36.4-46.3); Red Blood Count 3.37 M/uL (4.20-5.40); Target Cells 3+; White Blood Count 14.12 K/ul (4.8-10.8)
[2023-05-21] MEDS: SODIUM CHLORIDE 0.9% 1,000 ML IV SCH ×2 (08:52→19:51)
[2023-05-21] MEDS: ACETAMINOPHEN 500 MG TAB PO SCH ×2 (08:52→19:50)
[2023-05-21] MEDS: ASPIRIN 81 MG CHEW PO SCH (08:53)
[2023-05-21] MEDS: FERROUS SULFATE 325 MG TAB PO SCH (08:53)
[2023-05-21] MEDS: FOLIC ACID 1 MG TAB PO SCH (08:54)
[2023-05-21] MEDS: methylPREDNISolone 40 MG in SYRINGE 0 ML IV SCH (08:58)
[2023-05-21] MEDS: PRENATAL VITAMIN 1 TAB PO SCH (08:58)
[2023-05-21] MEDS: oxyCODONE HCL IR 5 MG TAB (IMMEDIATE RELEASE) PO PRN (15:45)
--- NOTE | 2023-05-21 18:13 | Hospitalist Progress Note ---
Date of Service May 21, 2023 Assessment & Plan (1) Sepsis: Plan: sepsis secondary to pneumonia, recent discharge after 5 days of cephalosporin(rocephin then cefepime) + azithromycin, dc on cefdininr now returns with pleural effusion too small to have thoracentesis sepsis criteria on presentation has no gyne sx to consider retained products of conception, no breast changes for mastitis, on cefepime and azithro abnormal Ua, recently post negative urine culture (2) Sickle cell anemia: Plan: Sickle cell anemia-pt states has never been hospitalized for crisis Follows with [facility] hematology Dr. Hector supportive care with oxygen, pain control and follow anemia (has been stable) Plan nursing concern for post depression, educated and given literature Admission and Anticipated Discharge Date Admission Date: May 19, 2023 Subjective This is a second in a row and the patient states she is feeling good upon my initial evaluation with a longer initially in the room the more uncomfortable she gets with regard to her chest pain or discomfort. Her mother was present. Patient thinks it was explained that she likely is going to have some pleuritic pain for few weeks as her pleuritis resolves from her pneumonia continue to have pain control with hopes the patient is discharged in next 24 to 48 hours Physical Exam Physical Exam: card exam is regular lungs may have some scant rhonchi at the bases but otherwise are clear no focal rubs no wheezes chest wall was reviewed reproducible tenderness Results & Data Results & Data Vital Signs (Past 12 Hours) Vital Signs Temp Pulse Pulse Resp BP Pulse Ox O2 Del Method 05/21/23 16:26 86 16 96 Room Air 05/21/23 16:07 98.2 F 85 18 112/73 93 Room Air 05/21/23 11:54 98.8 F 89 17 119/75 92 Room Air 05/21/23 10:57 74 15 91 Room Air 05/21/23 08:24 78 05/21/23 08:09 98.1 F 86 17 111/73 91 Room Air 05/21/23 07:56 Room Air 05/21/23 07:08 70 16 92 Room Air FiO2 05/21/23 16:26 05/21/23 16:07 05/21/23 11:54 05/21/23 10:57 21 05/21/23 08:24 05/21/23 08:09 05/21/23 07:56 05/21/23 07:08 PG Care Time/CCT Total # of Minutes Spent Total Time Spent with Patient: Total time spent is greater than 50% in coordination of care (as documented) at patient's floor/unit and/or counseling patient: Coding Level of Care Code 30710 SUB INP/OBS CARE 2/35MIN Diagnoses Sepsis A41.9 Sepsis acute organ dysfunction status: unspecified Sickle cell anemia D57.00 Sickle-cell associated disorders: with unspecified crisis (1) Sepsis Sepsis acute organ dysfunction status: unspecified (2) Sickle cell anemia Sickle-cell associated disorders: with unspecified crisis Qualified Code(s): D57.00 - Hb-SS disease with crisis, unspecified
[2023-05-22] MEDS: oxyCODONE HCL IR 5 MG TAB (IMMEDIATE RELEASE) PO PRN
[2023-05-22] MEDS ORDERED: POLYETHYLENE (MIRALAX) 17 GM PACK PO PRN (01:04)
[2023-05-22] MEDS ORDERED: SENNA 8.6 MG TAB PO PRN (01:04)
[2023-05-22] MEDS: SODIUM CHLORIDE 0.9% 1,000 ML IV SCH ×2 (02:20→05:35)
[2023-05-22] MEDS: CEFEPIME 2,000 MG in SYRINGE 0 ML IV SCH (05:35)
[2023-05-22] MEDS: AZITHROMYCIN 500 MG in DEXTROSE 5% 250 ML IV SCH (05:35)
[2023-05-22 06:31] LABS: Basophils # (auto) 0.13 K/uL (0.00-0.20); Basophils % (auto) 0.8 %; Eosinophils # (auto) 0.13 K/uL (0.00-0.50); Eosinophils % (auto) 0.8 %; Hematocrit (blood only) 22.2 % (37.0-47.0); Hemoglobin 8.1 g/dl (12.0-16.0); Immature Granulocytes # (auto) 0.13 K/uL (0.01-0.20); Immature Granulocytes % (auto) 0.8 %; Lymphocytes # (auto) 3.07 K/uL (1.20-3.40); Lymphocytes % (auto) 18.9 %; Mean Corpuscular Hemoglobin 24.8 pg (25.0-34.0); Mean Corpuscular Hgb Conc 36.5 g/dL (32.0-36.0); Mean Corpuscular Volume 68.1 fL (80.0-100.0); Monocytes # (auto) 1.87 K/uL (0.11-0.59); Monocytes % (auto) 11.5 %; Neutrophils # (auto) 10.95 K/uL (1.40-6.50); Neutrophils % (auto) 67.2 %; Nucleated RBC # (auto) 0.13 K/uL (0.00-0.12); Nucleated RBC % (auto) 0.8 %; RDW Coefficient of Variation 18.2 % (11.5-14.5); RDW Standard Deviation 43.9 fL (36.4-46.3); Red Blood Count 3.26 M/uL (4.20-5.40); White Blood Count 16.28 K/ul (4.8-10.8)
[2023-05-22 06:44] LABS: Albumin Globulin Ratio 1.1 (0.9-2); BUN Creatinine Ratio 11.5 (10-20); Bilirubin,Total 0.6 mg/dl (0.2-1.0); Calcium 8.3 mg/dl (8.6-10.3); Creatinine Clr Calc Pharmacy 193.6 ml/min; Est GFR (African American) 148.6 ml/min; Est GFR (Non-African American) 128.2 ml/min; Globulin 2.8 gm/dl (2.5-4.0); Potassium 3.8 mmol/L (3.5-5.1); Total Protein 5.8 gm/dl (6.0-8.3)
[2023-05-22] MEDS: ALBUT/IPRATROP 3MG/0.5MG NEB 3 ML VIAL NEB SCH ×2 (06:51→10:38)
[2023-05-22 06:56] LABS: Anisocytosis Present; Mean Platelet Volume 9.7 fL (9.4-12.4); Platelet Count 564 K/uL (130-400); Polychromasia 2+; Target Cells 3+
--- NOTE | 2023-05-22 08:48 | XRay Report ---
XR chest 1V portable CLINICAL HISTORY: Evaluate left lower lobe pneumonia. COMPARISON STUDY: Chest CT May 12, 2023. Chest radiograph May 19, 2023. FINDINGS: There is no pneumothorax. Small bilateral pleural effusions are present. Right basilar opac ity has slightly increased. There is persistent left basilar opacity. Prominence of the cardiac silho uette is unchanged. Pulmonary vascular congestion has improved. IMPRESSION: 1. Bibasilar opacities, slightly increased since prior exam. The findings favor pneumonia. 2. Small bilateral pleural effusions. ACT 112: Negative or not required by law. Electronically signed by: Hermes Harris M.D. 05/22/2023 8:46 AM
[2023-05-22] MEDS: ACETAMINOPHEN 500 MG TAB PO SCH (09:15)
[2023-05-22] MEDS: PRENATAL VITAMIN 1 TAB PO SCH (09:15)
[2023-05-22] MEDS: FOLIC ACID 1 MG TAB PO SCH (09:15)
[2023-05-22] MEDS: ASPIRIN 81 MG CHEW PO SCH (09:15)
[2023-05-22] MEDS: methylPREDNISolone 40 MG in SYRINGE 0 ML IV SCH (09:15)
[2023-05-22] MEDS: FERROUS SULFATE 325 MG TAB PO SCH (09:15)
--- NOTE | 2023-05-22 18:57 | Hospitalist Progress Note ---
Date of Service May 22, 2023 Assessment & Plan Admission and Anticipated Discharge Date Admission Date: May 19, 2023 Results & Data Results & Data Vital Signs (Past 12 Hours) Vital Signs Temp Pulse Pulse Pulse Resp BP BP 05/22/23 11:16 98.4 F 92 H 18 102/62 05/22/23 11:08 97.7 F 76 71 20 112/67 109/68 05/22/23 10:38 71 20 05/22/23 09:37 05/22/23 07:48 97.7 F 91 H 18 112/67 05/22/23 07:31 70 Pulse Ox O2 Del Method 05/22/23 11:16 91 Room Air 05/22/23 11:08 93 05/22/23 10:38 93 Room Air 05/22/23 09:37 Room Air 05/22/23 07:48 92 Room Air 05/22/23 07:31 PG Care Time/CCT Total # of Minutes Spent Total Time Spent with Patient: Total time spent is greater than 50% in coordination of care (as documented) at patient's floor/unit and/or counseling patient: Coding
--- NOTE | 2023-05-22 19:00 | Discharge Summary ---
Date of Service May 22, 2023 Admission HPI Per Admitting Provider The patient is a 32-year-old female with a past medical history including pleural effusion, sickle cell anemia, allergic rhinitis, use of cannabis, vitamin D deficiency, and recent admission for by basilar pneumonia from 05/12- 05/18/2023. This pneumonia was treated with first 2 days of ceftriaxone, with the next 3 days of cefepime, and 5 days continuously of azithromycin IV. Principal Diagnosis pneumonia with chest pain Discharge Exam lungs are clear still some pleuritic pain with movement Discharge Data Allergies Allergy/AdvReac Type Severity Reaction Status Date / Time pollen extracts Allergy Mild Congested Verified 05/19/23 22:10 Consultations 05/19/23 21:48 ED Decision to Admit Stat Hospital Course (1) Sepsis: sepsis secondary to pneumonia, recent discharge after 5 days of cephalosporin(rocephin then cefepime) + azithromycin, dc on cefdininr now returns with pleural effusion too small to have thoracentesis sepsis criteria on presentation, sepsis now resolved Pt states she has 5 additional days of po abtx from earlier discharge and will use them does not need new Rx cefdinir/azotro has no gyne sx to consider retained products of conception, no breast changes for mastitis, on cefepime and azithro abnormal Ua, recently post negative urine culture (2) Sickle cell anemia: Sickle cell anemia-pt states has never been hospitalized for crisis Follows with [facility] hematology Dr. Hector requests rescue inhaler,Rx given Plan nursing concern for post depression, educated and given literature Total Time Total Time Spent Total Time Spent (In Minutes): it required greater than 30 minutes to prepare this patient for discharge. Discharge Plan Discharge Items Patient Disposition: Home - Self-Care Reason For Visit: PNEUMONIA WITH HYPOXIA Discharge Diagnosis: pneumonia with chest pain Activity: Resume your previous activity Non-emergency contact: Primary Care Provider Call non-emergency contact if: your symptoms worsen Follow-up/Referrals: PCP,NO [Primary Care Provider] - Diet: Regular Addtl Attending Provider Instructions: please take at least 10 deep breaths an hour finish your previous antibiotics follow up with a pcp in one week Pending Studies at Discharge: No Stand-Alone Forms: My [facility], Smoking Cessation Medications and DC Order Prescriptions: New albuterol sulfate [Ventolin HFA] 90 mcg/actuation HFA aerosol inhaler 1 inh inhalation Q6H PRN (Reason: shortness of breath or wheezing) Qty: 6.7 0RF Continued aspirin 81 mg tablet,chewable 81 mg PO QAM WesTab Plus 27 mg iron- 1 mg tablet 1 tab PO QAM folic acid 1 mg tablet 5 mg PO DAILY cefdinir 300 mg capsule 300 mg PO BID 5 Days Qty: 10 0RF Rx Instructions: first dose PM of 05/18/23. acetaminophen [Tylenol Extra Strength] 500 mg Tablet 1,000 mg PO Q6H PRN (Reason: Pain) ferrous sulfate 325 mg (65 mg iron) Tablet 325 mg PO DAILY Discharge Orders: Discharge Order (Routine); Ordered 05/22/23 Ordered By: Gab Colón Admission Data Admit Date/Time: 05/19/23 22:50 Attending Provider: Gab Colón Admit Provider: Chris Arteaga Primary Care Provider: PCP,NO Other Providers: Chris Arteaga Other Interventions: Discharge Summary Assessment (RN) Last Done: 05/22/23 11:08 Coding Level of Care Code 83470 INP/OBS DISCH >30 MIN Diagnoses Sepsis A41.9 Sepsis acute organ dysfunction status: unspecified Sickle cell anemia D57.00 Sickle-cell associated disorders: with unspecified crisis
--- NOTE | 2023-05-27 10:44 | Coding Query ---
CODING QUERY To promote full compliance with coding requirements relating to patient care, provider participation is requested in all cases of hitcher uncertainty. Please assist us with the question(s) below: Coding Question(s): There is documentation in the chart and on the Discharge Summary of, "recently post ". Please specify below regarding recently post : ( xx) within a 6 week time frame from the ( ) over 6 weeks since the ( ) unknown if within 6 weeks, or over 6 weeks since the Physician's Response(s): Thank you Francisca Marcano Principal Diagnosis: "that condition established after study, to be chiefly responsible for occasioning the admission of the patient to the hospital for care." Co-Existing Principal Diagnosis: "when two or more diagnoses equally meet the criteria for principal diagnosis as determined by the circumstances of admission, diagnostic work up, and/or therapy provided, and the Alphabetic Index, Tabular List, or another coding guideline does not provide sequencing direction, any one of the diagnoses may be sequenced first." "When the physician has documented what appears to be a current diagnosis in the body of the record, but has not included the diagnosis in the final diagnostic statement, the physician should be asked whether the diagnosis should be added." ([facility] 2 QTR90. p3-4) ELVIE
== END 2023-05-22 13:56 | disposition home or self-care (01) | DRG 776 ==
LOC: ED 19:34 → 2S 22:50 → SUATTDRO 22:50 → 2S 05-20 00:27

== ENCOUNTER 2025-02-13 21:46 | Observation (INO) ==
--- NOTE | 2025-02-13 22:09 | Emergency Department Note ---
History of Present Illness General Chief complaint: Chest Pain Stated complaint: CHEST PAIN Time Seen by Provider: 02/13/25 21:51 History of Present Illness Maximum Pain Intensity: 8 This 34-year-old female presents the ER complaining of chest pain and cough for the past day. She is concerned she might have pneumonia. Patient denies fever, chills, abdominal pain, headache. No history of DVT or PE. She does use marijuana. Home Medications Medication Instructions Recorded Confirmed Type folic acid 1 mg tablet 5 mg PO DAILY sickle cell anemia 05/12/23 02/14/25 History acetaminophen 500 mg tablet 1,000 mg PO Q6H PRN Pain 05/19/23 02/14/25 History (Tylenol Extra Strength) albuterol sulfate 90 mcg/actuation 1 inh inhalation Q6H PRN shortness 05/22/23 02/14/25 Rx aerosol inhaler (Ventolin HFA) of breath or wheezing #6.7 grams mecobalamin (vitamin B12) 1,000 1,000 mcg PO DAILY 04/28/24 02/14/25 History mcg chewable tablet budesonide-formoterol HFA 160 1 inh inhalation BID #10.2 grams 12/01/24 02/14/25 Rx mcg-4.5 mcg/actuation aerosol inhaler (Symbicort) Allergies Allergy/AdvReac Type Severity Reaction Status Date / Time pollen extracts Allergy Mild Congested Verified 12/01/24 10:53 Past Med/Surg History Problem List CAP (community acquired pneumonia) (Acute) Pulmonary embolism (Acute) Knee pain, left Left ventricular enlargement Knee effusion Mild tricuspid regurgitation Trace mitral valve regurgitation Sleep apnea Maternal sickle cell anemia affecting , antepartum Head ache (Chronic) Allergic rhinitis (Chronic) Use of cannabis (Acute) used prior to - not used during Vitamin D deficiency (Acute) Chronic anemia (Acute) Sickle cell anemia (Chronic) Follow [facility] Hematology Medical History Trace aortic valve regurgitation History of asthma Mild pulmonary hypertension Right ventricular enlargement Pleural effusion Sepsis Pneumonia Supervision of normal first Rash without hives COVID-19 Pneumonia anemia Pleural effusion Sickle cell anemia Lactating mother Encounter for assessment Sickle cell anemia IUGR (intrauterine growth restriction) affecting care of mother Family history of diabetes mellitus (DM) 2 brothers with Type II Asthma Surgical History S/P section S/P wisdom tooth extraction No pertinent past surgical history Family History Grandmother No problems noted. Brother Diabetes Brother Diabetes Denies family history of Ovarian cancer Prostate cancer Myocardial infarction Breast cancer Colorectal cancer Social History Smoking Status: Never smoker Second Hand Exposure: No; Do You Dip or Chew Tobacco: No; Hx Alcohol Use: No Hx Substance Use: Yes Prescribed Medications: Marijuana Substance Use Type Other:: denied substance use when asked Preferred Language: German Communication Ability: Effective Clock Repairer Required: No Beliefs That Will Affect Care: None marital status: Single marital status details: Dee Dee NEGRON not involved Current Living Situation: Parent and Other Current Living Situation Comment: Lives with Mom and her child current occupational status: employed 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[employer], 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 [employer] Feels Safe at Home: Yes Childhood Exposure to Second-Hand Smoke: No Dental Care, Regularly: No Physical Activity Frequency: Daily Seatbelt Use: always Sunscreen Use: No Assistive Devices: None Review of Systems A total of 10 systems reviewed and were otherwise negative Physical Exam Vital Signs Vital Signs - 24 hr 02/13/25 21:48 02/13/25 21:52 02/13/25 23:51 Temperature 36.5 C Temperature Source Temporal Artery Scan Pulse Rate 89 79 Pulse Rate from SpO2 Sensor 79 Respiratory Rate 16 20 Respiratory Effort / Characteristics Non-Labored Spontaneous Respiratory Depth Normal Respiratory Pattern Regular Blood Pressure 119/73 91/59 L Blood Pressure Mean 88 69 Pulse Oximetry 96 96 97 Oxygen Delivery Method Room Air Room Air Room Air Sepsis Recent Fever Within 48 Hours No Sepsis New/Unexplained Change in Mental Status N/A Sepsis Action Taken by Nursing No Action Required 02/14/25 01:00 02/14/25 01:24 02/14/25 01:30 Temperature Temperature Source Pulse Rate 62 74 73 Pulse Rate from SpO2 Sensor Respiratory Rate 16 16 Respiratory Effort / Characteristics Respiratory Depth Respiratory Pattern Blood Pressure 105/62 102/54 L Blood Pressure Mean 79 78 Pulse Oximetry 96 96 Oxygen Delivery Method Room Air Room Air Sepsis Recent Fever Within 48 Hours Sepsis New/Unexplained Change in Mental Status Sepsis Action Taken by Nursing 02/14/25 02:00 Temperature Temperature Source Pulse Rate 83 Pulse Rate from SpO2 Sensor Respiratory Rate 18 Respiratory Effort / Characteristics Respiratory Depth Respiratory Pattern Blood Pressure 102/65 Blood Pressure Mean 76 Pulse Oximetry 100 Oxygen Delivery Method Room Air Sepsis Recent Fever Within 48 Hours Sepsis New/Unexplained Change in Mental Status Sepsis Action Taken by Nursing VITALS: Vitals are noted on the nurse's note and reviewed by myself. Vital signs stable. GENERAL: Pleasant female, in no acute distress, nondiaphoretic, well-developed well-nourished. SKIN: Capillary reflex less than 2 seconds. HEENT: Normocephalic. PERRLA. EOMI. Nares patent. Mucous membranes moist. Neck is supple without nuchal rigidity. HEART: Regular rate and rhythm LUNGS: Clear to auscultation bilaterally without wheezes, rales or rhonchi. No retractions or accessory muscle use. ABDOMEN: Positive bowel sounds x 4. Normal tympanic percussion. Soft, nontender, without masses or organomegaly. Law sign negative. No guarding or rebound tenderness. no CVA tenderness MUSCULOSKELETAL: No gross musculoskeletal defects. NEURO: Patient was alert and oriented to person place and time. No focal neurological deficits. Course Administered Medications Heparin Sodium/Dextrose (Heparin 15781 Unit/500 Ml D5w) 25,000 units in 500 mls @ 25 mls/hr IV .Q20H [facility]; Protocol Stop: 03/16/25 01:59 Last Titration: 02/14/25 03:21 Dose: 1,250 units/hr, 25 mls/hr Documented By: NAT Co-signed By: MMShannon Admin: 02/14/25 02:08 Dose: 1,250 units/hr, 25 mls/hr Documented By: LISANDRO Co-signed By: CODY Discontinued Medications Acetaminophen (Acetaminophen 1000 Mg/100 Ml Iv) Confirm Administered Dose 1,000 mg IV .STK-MED ONE Stop: 02/13/25 22:56 Last Admin: 02/13/25 23:50 Dose: Not Given Documented By: VANDANA Azithromycin (Azithromycin 250 Mg Tab) 500 mg PO NOW ONE Stop: 02/14/25 01:35 Last Admin: 02/14/25 02:06 Dose: 500 mg Documented By: LISANDRO Heparin Sodium (Porcine) (Heparin Sod (Porcine) 1000 Unit/Ml) 1 units IV NOW ONE Stop: 02/14/25 01:55 Last Admin: 02/14/25 02:06 Dose: 6,000 units Documented By: LISANDRO Co-signed By: CODY Heparin Sodium/Dextrose (Heparin Iv Adult Wt-Based Standard W/ Initial Bolus Protocol) 1 each IV NOW STA; Protocol Stop: 02/14/25 01:39 Last Admin: 02/14/25 02:10 Dose: Not Given Documented By: LISANDRO Acetaminophen (Ofirmev) 1,000 mg in 100 mls @ 400 mls/hr IV NOW STA Stop: 02/13/25 23:28 Last Infusion: 02/14/25 01:00 Dose: Infused Documented By: Admin: 02/13/25 23:50 Dose: 400 mls/hr Documented By: VANDANA Ceftriaxone Sodium (Rocephin) 2,000 mg in 50 mls @ 100 mls/hr IV NOW STA Stop: 02/14/25 02:03 Last Admin: 02/14/25 02:07 Dose: 100 mls/hr Documented By: LISANDRO Ioversol (Optiray 320 125ml) 118 ml IV ONCE ONE Stop: 02/14/25 00:07 Last Admin: 02/14/25 00:06 Dose: 118 ml Documented By: NATALY Ketorolac Tromethamine (Ketorolac Tromethamine 15 Mg/Ml Vial) 10 mg IV NOW STA Stop: 02/13/25 21:53 Last Admin: 02/13/25 22:11 Dose: 10 mg Documented By: JOSSELINE Critical Care Time Critical Care Time: Yes Total Critical Care Time: 35 I have personally spent 35 minutes of critical care time in the direct management of this patient. This includes bedside care, interpretation of diagnostic studies, and testing, discussion with consultants, patient, and family members, and other required patient management activities. This 35 minutes is in excess of all separately billable procedures. Medical Decision Making Medical Records Attestation: I reviewed the patient's medical records. Home Medications Current Medication List: was personally reviewed by fl Laboratory Data Attestation: I reviewed the patient's lab results. 02/13/25 Unknown 02/13/25 Unknown Lab Results 02/13/25 02/13/2502/13/25 Range/Units 23:35 23:43 Unknown WBC 10.96 H (4.8-10.8) K/ul RBC 4.20 (4.20-5.40) M/uL Hgb 11.0 L (12.0-16.0) g/dl Hct 30.0 L (37.0-47.0) % MCV 71.4 L (80.0-100.0) fL MCH 26.2 (25.0-34.0) pg MCHC 36.7 H (32.0-36.0) g/dL RDW Std Deviation 37.3 (36.4-46.3) fL RDW Coeff of Aletha 15.0 H (11.5-14.5) % Plt Count 360 (130-400) K/uL MPV 10.2 (9.4-12.4) fL Immature Gran % (Auto) 0.3 % Neut % (Auto) 54.3 % Lymph % (Auto) 30.7 % [place] % (Auto) 10.8 % Eos % (Auto) 3.1 % Baso % (Auto) 0.8 % Reticulocyte % (Auto) 3.01 H (0.50-2.00) % Neut # (Auto) 5.95 (1.40-6.50) K/uL Lymph # (Auto) 3.37 (1.20-3.40) K/uL [place] # (Auto) 1.18 H (0.11-0.59) K/uL Eos # (Auto) 0.34 (0.00-0.50) K/uL Baso # (Auto) 0.09 (0.00-0.20) K/uL Reticulocyte # 0.130 H (0.020-0.100) 10^6/uL Immature Gran # (Auto) 0.03 (0.01-0.20) K/uL Absolute Nucleated RBC 0.03 (0.00-0.12) K/uL Nucleated RBC % (auto) 0.3 % Sickle Cells Occasional PT 10.4 (9.0-12.0) Seconds INR 1.0 (0.9-1.1) APTT 26 (21-31) Seconds PTT Ratio 1.0 D-Dimer 1340 H* Cancelled (0-500) ug/L FEU Sodium 135 L (136-145) mmol/L Potassium 3.6 TNP (3.5-5.1) mmol/L Chloride 104 (98-107) mmol/L Carbon Dioxide 25 (21-32) mmol/L Anion Gap 6 (3-11) BUN 8 (6-23) mg/dl Creatinine 0.79 (0.6-1.2) mg/dl Est Cr Clr Drug Dosing 106.8 ml/min eGFR 101.86 BUN/Creatinine Ratio 10.1 (10-20) Glucose 83 (70-99(Fasting)) mg/dl Calcium 9.6 (8.6-10.3) mg/dl Total Bilirubin 1.3 H (0.2-1.0) mg/dl AST 20 TNP (13-39) U/L ALT 13 (7-52) U/L Alkaline Phosphatase 64 (34-104) U/L Total Creatine Kinase 66 (26-192) U/L Troponin I High Sens 3.6 4.5 (0-14) pg/ml Total Protein 8.3 (6.0-8.3) gm/dl Albumin 4.3 (3.4-5.0) gm/dl Globulin 4.0 (2.5-4.0) gm/dl Albumin/Globulin Ratio 1.1 (0.9-2) Lipase 26 (11-82) U/L Procalcitonin 0.02 (0-0.5) ng/ml HCG, Qual Negative (Negative) Imaging Data Attestation: I personally reviewed and interpreted this imaging study as follows: Radiologist's Impression: Chest CTA 02/13/25 23:45 EXAM: CT angio chest PE protocol CLINICAL HISTORY: PE. TECHNIQUE: Contiguous axial CT images of the chest were acquired with administration of intravenous contrast. Coronal and sagittal reconstructions were obtained.. One of the following dose reduction techniques were utilized for this exam: Automated exposure control, adjustment of the mA and/or kV according to patient size, and use of iterative reconstruction COMPARISON: Compared with previous study dated 05/12/2023. FINDINGS: Lungs: An area of consolidation seen in the left lower lung lobe.(new) Area of ground glass opacity seen in the right upper lobe anteriorly measures about 2 cm. There is two nodules of ground glass opacity seen in the left lower lobe (measures about 1cm ) and right lower lobe subpleural in location ( about 6mm).(new) A tiny nodule seen in the right middle lung lobe. Interval resolution of the previously noted bilateral basal consolidation. Left side pleural effusion ( interval decrease). Resolution of the previously noted right side pleural effusion. Mediastinum: No mediastinal mass or abnormal lymphadenopathy. Normal appearance of the thymus. Hilar Structures: Normal size and configuration, no enlargement. Heart and Great Vessels: Normal heart size and configuration. No pericardial effusion. Normal caliber and course of the thoracic aorta and other great vessels. No significant atherosclerosis or aneurysm. Normal enhancement of the great vessels post-contrast. Pulmonary Arteries: At least 2 filling defects are seen in the segmental branches of the left lower lobe pulmonary artery suggesting pulmonary thrombosis. Visible on image 95/219 and 99/219 Esophagus: Normal course and caliber. No masses or dilatation. Bones: No fractures or lytic/sclerotic lesions. Normal bone density and alignment. No evidence of rib fractures. Chest Wall: No masses or soft tissue abnormalities. Upper Abdomen: Visualized portions of the liver, spleen, pancreas, adrenal glands, and kidneys are normal. No abnormalities noted in the visualized upper abdominal organs. Thyroid: Normal size and morphology. No nodules or masses. IMPRESSION: 1. At least 2 filling defects are seen in the segmental branches of the left lower lobe pulmonary artery suggesting pulmonary thrombosis. Visible on image 95/219 and 99/219 2. An area of consolidation seen in the left lower lung lobe, to be clinically and laboratory correlated (new). 3. Area of ground glass opacity seen in the right upper lobe anteriorly measures about 2 cm. (new) 4. There is two nodules of ground glass opacity seen in the left lower lobe (measures about 1cm ) and right lower lobe subpleural in location ( about 6mm). Also there is a tiny nodule seen in the right middle lung lobe.(new) 5. Interval resolution of the previously noted bilateral basal consolidation. 6. Left side pleural effusion ( interval decrease). 7. Resolution of the previously noted right side pleural effusion. Electronically signed by Patrice Arora 02-14-2025 01:32 AM MDM Narrative Prior records/ancillary studies reviewed. Triage Nursing notes reviewed. Additional history obtained from nursing. The patient's history was concerning for chest pain. Differential diagnosis: Etiologies such as cardiac ischemia, aortic dissection, pulmonary embolism, pneumonia, pneumothorax, musculoskeletal, infections, pericarditis, myocarditis, esophageal rupture, gastrointestinal, as well as others were entertained. Physical examination: As above. ER treatment provided: An order was placed for continuous cardiac monitoring. The monitor shows a rate of 60-100 with a sinus rhythm per my interpretation. Toradol was ordered On reassessment the patient felt better. Diagnostic interpretation by me: The electrocardiogram was negative for pathologic change. Ordered for chest pain EKG: Normal sinus, normal intervals, no acute ST-T wave changes, rate 84. Impression normal sinus rhythm independently interpreted by myself I think arrhythmia is unlikely. EKG shows normal sinus rhythm with no interval abnormalities such as QT prolongation or WPW. There are no findings to suggest Brugada syndrome. Cardiac monitoring in the emergency department reveals no tachycardic or bradycardic dysrhythmia. Hypertrophic cardiomyopathy was considered but there are no clear historical elements pointing toward this. EKG is not suggestive. The QRS voltage is not extremely large and there are no suggestive Q waves. The labs Independently Interpreted by myself revealed 2 negative troponins. Slightly elevated reticulocyte count Imaging studies: Imaging was reviewed and read by radiology Elevated D-dimer and patient was sent for CTA HEART SCORE: Hx: high/mod/low suspicion: 0 ECG: ST depression/nonspecific changes/normal: 0 Age: Greater than 65/45-64/less than 45: 0 Risk factors: (Hypertension, hyperlipidemia, diabetes, coronary disease, tobacco use, cocaine use): 1 Troponin: Greater than 2 times normal limits/1-2 times normal limits/normal: 0 Total: 1 PESI Score Age: 34 Male gender: 0 History of cancer: 0 Heart failure: 0 Chronic lung disease: 0 Pulse >=10/min: 0 Systolic blood pressure <100 mmH Respiratory rate >=0/min: 0 Temperature <36 Celcius: 0 Altered mental status: 0 Arterial oxygen saturation <90 percent: 0 Total: 62 Class I Low risk <66 Class II 66 to 85 Class III High risk 86 to 105 Class IV 106 to 125 Class V >125 Exam and history seem consistent with pulmonary embolisms and pneumonia. Patient started on heparin. She was given antibiotics. Medicine was consulted case discussed. Patient was admitted to the medical service. By the evaluation outlined above emergent etiologies such as cardiac ischemia, aortic dissection, pneumothorax, infections, pericarditis, myocarditis, gastrointestinal, as well as others were deemed relatively unlikely. The pt informed about the findings as listed above. All questions were answered and pleased with the treatment. The chart was completed utilizing [employer] Speech voice recognition software. Grammatical errors, random word insertions, pronoun errors, and incomplete sentences are an occassional consequence of this system due to software limitations, ambient noise, and hardware issues. Any formal questions or concerns about the content, text, or information contained within the body of this dictation should be directly addressed to the physician assistant county attorney for clarification. Impression & Plan Pulmonary embolism, CAP (community acquired pneumonia) Discharge Plan Visit Data Chief Complaint: Chest Pain Stated Complaint: CHEST PAIN ED Provider: Jordan Rosen ED Midlevel Provider: Aretha Felipe Discharge Problem: Pulmonary embolism, CAP (community acquired pneumonia) Patient Disposition: Admitted As Inpatient Condition: Good Discharge Instructions Interventions: ED Discharge Assessment Last Done: 02/14/25 02:51 Discharge Problem: Pulmonary embolism Qualifiers: Pulmonary embolism type: unspecified Chronicity: acute Acute cor pulmonale presence: unspecified Qualified Code(s): I26.99 - Other pulmonary embolism without acute cor pulmonale
[2025-02-13] MEDS: KETOROLAC TROMETHAMINE 15 MG/ML VIAL IV STA (22:11)
[2025-02-13 22:43] LABS: Hematocrit (blood only) 30.0 % (37.0-47.0); Hemoglobin 11.0 g/dl (12.0-16.0); Mean Corpuscular Hemoglobin 26.2 pg (25.0-34.0); Mean Corpuscular Volume 71.4 fL (80.0-100.0); Platelet Count 360 K/uL (130-400); RDW Standard Deviation 37.3 fL (36.4-46.3); Red Blood Count 4.20 M/uL (4.20-5.40); White Blood Count 10.96 K/ul (4.8-10.8)
[2025-02-13 22:51] LABS: Immature Granulocytes # (auto) 0.03 K/uL (0.01-0.20); Immature Granulocytes % (auto) 0.3 %; Sickle Cells Occasional
[2025-02-13 22:53] LABS: Pregnancy Test, Serum Negative (Negative)
[2025-02-13 23:07] LABS: Alanine Aminotransferase 13 U/L (7-52); Albumin Globulin Ratio 1.1 (0.9-2); Alkaline Phosphatase 64 U/L (34-104); Anion Gap 6 (3-11); Bilirubin,Total 1.3 mg/dl (0.2-1.0); Blood Urea Nitrogen 8 mg/dl (6-23); Calcium 9.6 mg/dl (8.6-10.3); Carbon Dioxide 25 mmol/L (21-32); Chloride 104 mmol/L (98-107); Creatinine Clr Calc Pharmacy 106.8 ml/min; Globulin 4.0 gm/dl (2.5-4.0); Glucose 83 mg/dl (70-99(Fasting)); Lipase 26 U/L (11-82); Sodium 135 mmol/L (136-145); Total Protein 8.3 gm/dl (6.0-8.3)
[2025-02-13] MEDS: ACETAMINOPHEN 1,000 MG/100 ML VIAL IV STA (23:50)
[2025-02-13] MEDS: ACETAMINOPHEN 1000 MG/100 ML IV IV ONE (23:50)
[2025-02-14 00:06] LABS: Reticulocytes # 0.130 10^6/uL (0.020-0.100)
[2025-02-14] MEDS: OPTIRAY 320 125ml IV ONE (00:06)
[2025-02-14 00:20] LABS: Creatine Kinase 66.0 U/L (26-192); Potassium 3.6 mmol/L (3.5-5.1)
--- NOTE | 2025-02-14 01:32 | CT Scan Report ---
EXAM: CT angio chest PE protocol CLINICAL HISTORY: PE. TECHNIQUE: Contiguous axial CT images of the chest were acquired with administration of intravenous contrast. Coronal and sagittal reconstructions were obtained.. One of the following dose reduction techniques were utilized for this exam: Automated exposure control, adjustment of the mA and/or kV according to patient size, and use of iterative reconstruction COMPARISON: Compared with previous study dated 05/12/2023. FINDINGS: Lungs: An area of consolidation seen in the left lower lung lobe.(new) Area of ground glass opacity seen in the right upper lobe anteriorly measures about 2 cm. There is two nodules of ground glass opacity seen in the left lower lobe (measures about 1cm ) and right lower lobe subpleural in location ( about 6mm).(new) A tiny nodule seen in the right middle lung lobe. Interval resolution of the previously noted bilateral basal consolidation. Left side pleural effusion ( interval decrease). Resolution of the previously noted right side pleural effusion. Mediastinum: No mediastinal mass or abnormal lymphadenopathy. Normal appearance of the thymus. Hilar Structures: Normal size and configuration, no enlargement. Heart and Great Vessels: Normal heart size and configuration. No pericardial effusion. Normal caliber and course of the thoracic aorta and other great vessels. No significant atherosclerosis or aneurysm. Normal enhancement of the great vessels post-contrast. Pulmonary Arteries: At least 2 filling defects are seen in the segmental branches of the left lower lobe pulmonary artery suggesting pulmonary thrombosis. Visible on image 95/219 and 99/219 Esophagus: Normal course and caliber. No masses or dilatation. Bones: No fractures or lytic/sclerotic lesions. Normal bone density and alignment. No evidence of rib fractures. Chest Wall: No masses or soft tissue abnormalities. Upper Abdomen: Visualized portions of the liver, spleen, pancreas, adrenal glands, and kidneys are normal. No abnormalities noted in the visualized upper abdominal organs. Thyroid: Normal size and morphology. No nodules or masses. IMPRESSION: 1. At least 2 filling defects are seen in the segmental branches of the left lower lobe pulmonary artery suggesting pulmonary thrombosis. Visible on image 95/219 and 99/219 2. An area of consolidation seen in the left lower lung lobe, to be clinically and laboratory correlated (new). 3. Area of ground glass opacity seen in the right upper lobe anteriorly measures about 2 cm. (new) 4. There is two nodules of ground glass opacity seen in the left lower lobe (measures about 1cm ) and right lower lobe subpleural in location ( about 6mm). Also there is a tiny nodule seen in the right middle lung lobe.(new) 5. Interval resolution of the previously noted bilateral basal consolidation. 6. Left side pleural effusion ( interval decrease). 7. Resolution of the previously noted right side pleural effusion. Electronically signed by Patrice Arora 02-14-2025 01:32 AM
[2025-02-14 01:55] LABS: INR 1.0 (0.9-1.1); Partial Thromboplastin Time 26 Seconds (21-31); Prothrombin Time 10.4 Seconds (9.0-12.0)
--- NOTE | 2025-02-14 01:59 | History & Physical Report ---
Date of Service February 14, 2025 Assessment & Plan (1) Pulmonary embolism: (2) CAP (community acquired pneumonia): (3) Sickle cell anemia: Plan 34-year-old female PMHx sickle cell anemia, allergic rhinitis, MR, and LVH presenting for onset of chest pain. Her ED evaluation is significant for a mild leukocytosis in setting of anemia, elevated D-dimer, and CTA suggestive of both PEs and PNA. She will be admitted for management of PE and PNA. #Pulmonary embolism 2 days chest pain, no SOB. H/o sickle cell disease. Hemodynamically stable at time of admission. Prior L popliteal cyst and with recent L knee effusion. - CBC leukocytosis 10k; D-dimer 1340; PT/INR WNL - Hypercoag. panel pending - EKG NSR @ 84 bpm - CTA chest pulmonary thrombosis of segmental branches of LLL, consolidation LLL, ground glass opacity RUL (2cm), 2 nodules of ground glass opacities LLL (1cm), RLL (6mm), nodule RML, L pleural effusion (interval decrease) - Echo 04/2024 TR, trace MR/VT, EF 55-60% -- pending repeat - Venous Doppler BLE pending - Heparin drip started -- continue #PNA/L pleural effusion/Asthma Sx of chest pain with cough "x months" as well as "wheezing since July", no F/C or URI symptoms. No sick contacts. Reports getting PNA often. H/o marijuana smoker. Also reports that her inhalers do not seem to be working well for her. Could trial different medication regimen and also evaluate if allergic factors are in play. - CBC leukocytosis 10.96; Procal pending - CBC am - CXR pending official read - Chest CTA consolidation LLL, ground glass opacities and nodules, L pleural effusion - O2 prn - none at baseline - IS - Continue inhalers - DuoNebs prn wheezing - Acetaminophen prn fever/pain, can add more pain meds as necessary - Ceftriaxone IV + azitrho IV - Consider pulm consult for pleural effusion as appropriate -- none at time of admission #Sickle cell anemia H/o sickle cell disease, follows with hematology; No h/o ACS, not presenting with fever, tachypnea, hypoxia, or pleuritic chest pain at time of admission. - CBC H/H 11/30.0, retic 0.130 - trend CBC - CXR pending official read - Chest CTA pulmonary thrombosis, ground glass opacities, nodules, L pleural effusion (decreased) - Continue folic acid, vitamin B12 - Heme consult as appropriate Dispo: Obs, PCU VTE Prophylaxis: Heparin - treatment dose This document was dictated utilizing [employer]. Please excuse any grammatical errors that may be secondary to use of this software. Admission and Anticipated Discharge Date Admission Date: 02/14/2025 History of Present Illness Chief Complaint: Chest pain Primary Care Provider: NO PCP 34-year-old female PMHx sickle cell anemia, allergic rhinitis, MR, and LVH presenting for onset of chest pain. 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 She states that she has had pneumonia in the past and that this felt like she was developing another pneumonia. The chest pain did not change on the day of arrival however since it was continuing and stable at high severity, she decided to come to be evaluated. She states that it is localized to the left side without radiation, describing it as a sharp pain and rating an 8 out of 10 on the pain scale at its worst. She has been having a cough for "a few months" and has been wheezing since July. She states that smoke from the ground does occasionally irritate her breathing she feels that she wheezes more. Exercise also causes her to wheeze more. She has a history of asthma, does not feel that her inhaler is of any benefit. She is denying SOB, palpitations, dizziness/lightheadedness, or syncope. Additionally denies abdominal pain, N/V/B/C, URI symptoms, fever/chills, edema, calf pain, numbness/tingling, or weakness. Has a history of sickle cell, follows with hematology. ED evaluation reveals CBC with leukocytosis 10.96, H/H 11/30.0; PT/INR pending; D-dimer 1340; CMP Na 135, bili 1.3; troponin 3.6, 4.5 on repeat; CXR pending official read; Chest CTA pulmonary thrombosis of segmental branches of LLL, consolidation LLL, ground glass opacity RUL (2cm), 2 nodules of ground glass opacities LLL (1cm), RLL (6mm), nodule RML, L pleural effusion (interval decrease); EKG NSR at 84 bpm.; Provided with ketorolac 10mg IV, heparin IV, ceftriaxone 2g IV, azithromycin 500mg po, and acetaminophen 1g IV in ED. Please see Dr. Arteaga's attestation for adjustments/additions to treatment plan. Allergies Allergy/AdvReac Type Severity Reaction Status Date / Time pollen extracts Allergy Mild Congested Verified 12/01/24 10:53 Home Medications Medication Instructions Recorded Confirmed Type folic acid 1 mg tablet 5 mg PO DAILY sickle cell anemia 05/12/23 02/14/25 History acetaminophen 500 mg tablet 1,000 mg PO Q6H PRN Pain 05/19/23 02/14/25 History (Tylenol Extra Strength) albuterol sulfate 90 mcg/actuation 1 inh inhalation Q6H PRN shortness 05/22/23 02/14/25 Rx aerosol inhaler (Ventolin HFA) of breath or wheezing #6.7 grams mecobalamin (vitamin B12) 1,000 1,000 mcg PO DAILY 04/28/24 02/14/25 History mcg chewable tablet budesonide-formoterol HFA 160 1 inh inhalation BID #10.2 grams 12/01/24 02/14/25 Rx mcg-4.5 mcg/actuation aerosol inhaler (Symbicort) Past Med/Surg History Problem List CAP (community acquired pneumonia) (Acute) Pulmonary embolism (Acute) Knee pain, left Left ventricular enlargement Knee effusion Mild tricuspid regurgitation Trace mitral valve regurgitation Sleep apnea Maternal sickle cell anemia affecting , antepartum Head ache (Chronic) Allergic rhinitis (Chronic) Use of cannabis (Acute) used prior to - not used during Vitamin D deficiency (Acute) Chronic anemia (Acute) Sickle cell anemia (Chronic) Follow [facility] Hematology Medical History Trace aortic valve regurgitation History of asthma Mild pulmonary hypertension Right ventricular enlargement Pleural effusion Sepsis Pneumonia Supervision of normal first Rash without hives COVID-19 Pneumonia anemia Pleural effusion Sickle cell anemia Lactating mother Encounter for assessment Sickle cell anemia IUGR (intrauterine growth restriction) affecting care of mother Family history of diabetes mellitus (DM) 2 brothers with Type II Asthma Surgical History S/P section S/P wisdom tooth extraction No pertinent past surgical history Family History Grandmother No problems noted. Brother Diabetes Brother Diabetes Denies family history of Ovarian cancer Prostate cancer Myocardial infarction Breast cancer Colorectal cancer Social History Smoking Status: Never smoker Second Hand Exposure: No; Do You Dip or Chew Tobacco: No; Hx Alcohol Use: Yes Alcohol type: hard liquor Hx Substance Use: Yes Prescribed Medications: Marijuana Substance Use Type Other:: denied substance use when asked Preferred Language: Senegalese Communication Ability: Effective Net Development Manager Required: No Beliefs That Will Affect Care: None marital status: Single marital status details: Dee Dee NEGRON not involved Current Living Situation: Alone Current Living Situation Comment: with child current occupational status: employed 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[employer], 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 [employer] Feels Safe at Home: Yes Safety Concerns: Feels Safe At This Time Childhood Exposure to Second-Hand Smoke: No Dental Care, Regularly: No Physical Activity Frequency: Daily Seatbelt Use: always Sunscreen Use: No Assistive Devices: Glasses Review of Systems Review of Systems: All systems reviewed & are unremarkable except as noted in Subjective Physical Exam Physical Exam: General: No acute distress Skin: Warm and dry Head: Normocephalic, atraumatic Eyes: PERRL, conjunctivae clear, sclera non-icteric ENT: External ear and ear canal without swelling; nose atraumatic; good dentition, tongue normal appearance, pharynx normal Neck: Supple, no LAD Cardio: RRR, no M/G/R, S1 and S2 normal Resp: No respiratory distress, Lungs CTA in all lobes bilaterally, no wheezes, rales, or rhonchi Abdomen: Soft, symmetric, nontender; No masses or hepatosplenomegaly; Bowel sounds normoactive MSK: No deformities; pulses palpable and equal; no edema; no calf tenderness; no calf size discrepancies. Neuro: Awake, alert; Sensation intact bilaterally; CN grossly intact Psych: Appropriate mood and affect; good judgement and insight. Results & Data Results & Data Vital Signs (Past 12 Hours) Vital Signs Temp Pulse Resp BP Pulse Ox O2 Del Method 02/14/25 01:24 74 02/13/25 23:51 79 20 91/59 L 97 Room Air 02/13/25 21:52 96 Room Air 02/13/25 21:48 36.5 C 89 16 119/73 96 Room Air Laboratory Results 02/13/25 02/13/25 02/13/25 Unknown 23:43 23:35 WBC 10.96 H RBC 4.20 Hgb 11.0 L Hct 30.0 L MCV 71.4 L MCH 26.2 MCHC 36.7 H RDW Std Deviation 37.3 RDW Coeff of Aletha 15.0 H Plt Count 360 MPV 10.2 Immature Gran % (Auto) 0.3 Neut % (Auto) 54.3 Lymph % (Auto) 30.7 [place] % (Auto) 10.8 Eos % (Auto) 3.1 Baso % (Auto) 0.8 Reticulocyte % (Auto) 3.01 H Neut # (Auto) 5.95 Lymph # (Auto) 3.37 [place] # (Auto) 1.18 H Eos # (Auto) 0.34 Baso # (Auto) 0.09 Reticulocyte # 0.130 H Immature Gran # (Auto) 0.03 Absolute Nucleated RBC 0.03 Nucleated RBC % (auto) 0.3 Sickle Cells Occasional PT 10.4 INR 1.0 APTT 26 PTT Ratio 1.0 D-Dimer Cancelled 1340 H* Sodium 135 L Potassium TNP 3.6 Chloride 104 Carbon Dioxide 25 Anion Gap 6 BUN 8 Creatinine 0.79 Est Cr Clr Drug Dosing 106.8 eGFR 101.86 BUN/Creatinine Ratio 10.1 Glucose 83 Calcium 9.6 Total Bilirubin 1.3 H AST TNP 20 ALT 13 Alkaline Phosphatase 64 Total Creatine Kinase 66 Troponin I High Sens 4.5 3.6 Total Protein 8.3 Albumin 4.3 Globulin 4.0 Albumin/Globulin Ratio 1.1 Lipase 26 HCG, Qual Negative Diagnostic Findings Chest CTA 02/13/25 23:45 EXAM: CT angio chest PE protocol CLINICAL HISTORY: PE. TECHNIQUE: Contiguous axial CT images of the chest were acquired with administration of intravenous contrast. Coronal and sagittal reconstructions were obtained.. One of the following dose reduction techniques were utilized for this exam: Automated exposure control, adjustment of the mA and/or kV according to patient size, and use of iterative reconstruction COMPARISON: Compared with previous study dated 05/12/2023. FINDINGS: Lungs: An area of consolidation seen in the left lower lung lobe.(new) Area of ground glass opacity seen in the right upper lobe anteriorly measures about 2 cm. There is two nodules of ground glass opacity seen in the left lower lobe (measures about 1cm ) and right lower lobe subpleural in location ( about 6mm).(new) A tiny nodule seen in the right middle lung lobe. Interval resolution of the previously noted bilateral basal consolidation. Left side pleural effusion ( interval decrease). Resolution of the previously noted right side pleural effusion. Mediastinum: No mediastinal mass or abnormal lymphadenopathy. Normal appearance of the thymus. Hilar Structures: Normal size and configuration, no enlargement. Heart and Great Vessels: Normal heart size and configuration. No pericardial effusion. Normal caliber and course of the thoracic aorta and other great vessels. No significant atherosclerosis or aneurysm. Normal enhancement of the great vessels post-contrast. Pulmonary Arteries: At least 2 filling defects are seen in the segmental branches of the left lower lobe pulmonary artery suggesting pulmonary thrombosis. Visible on image 95/219 and 99/219 Esophagus: Normal course and caliber. No masses or dilatation. Bones: No fractures or lytic/sclerotic lesions. Normal bone density and alignment. No evidence of rib fractures. Chest Wall: No masses or soft tissue abnormalities. Upper Abdomen: Visualized portions of the liver, spleen, pancreas, adrenal glands, and kidneys are normal. No abnormalities noted in the visualized upper abdominal organs. Thyroid: Normal size and morphology. No nodules or masses. IMPRESSION: 1. At least 2 filling defects are seen in the segmental branches of the left lower lobe pulmonary artery suggesting pulmonary thrombosis. Visible on image 95/219 and 99/219 2. An area of consolidation seen in the left lower lung lobe, to be clinically and laboratory correlated (new). 3. Area of ground glass opacity seen in the right upper lobe anteriorly measures about 2 cm. (new) 4. There is two nodules of ground glass opacity seen in the left lower lobe (measures about 1cm ) and right lower lobe subpleural in location ( about 6mm). Also there is a tiny nodule seen in the right middle lung lobe.(new) 5. Interval resolution of the previously noted bilateral basal consolidation. 6. Left side pleural effusion ( interval decrease). 7. Resolution of the previously noted right side pleural effusion. Electronically signed by Patrice Arora 02-14-2025 01:32 AM Medications Administered Ketorolac 10mg IV Heparin IV Ceftriaxone 2g IV Azithromycin 500mg po Acetaminophen 1g IV ECG Additional Comments: NSR 84 bpm, VT 158, QRS 76, QT/QTc 340/4, PRT 50/29/64 Code Status & VTE Plan Code Status Full Supervising Physician Co-Signing Physician Notes Attending addendum: I have physically seen this patient, have supervised the ALBAN's activities, and agree with the H&P unless as otherwise noted. Assessment and Plan: The patient is a 34-year-old female with past medical history including sickle cell anemia, allergic rhinitis, MR, TR, LVH, sleep apnea, and left leg Dyson's cyst drainage. She presents to the emergency department with complaint of chest pain without shortness of breath for 2 days. Pulmonary embolism- CTA chest PE protocol revealed 2 left lower lobe PEs. Lower extremity venous Doppler bilaterally ordered. Patient has history of prior left popliteal cyst with recent left knee effusion drained. Hypercoagulable panel pending, ordered by ED, but lupus anticoagulant was inadvertently left out Echocardiogram 04/2024 shows TR, trace MR/VT, and EF 55-60% Continue heparin drip begun in the ED Pneumonia/left pleural effusion/asthma- Patient reports wheezing since July History of marijuana use She reports that her inhaler is not working well despite using the Symbicort as directed, and the albuterol HFA has little effect. CTA shows left lower lobe consolidation, groundglass opacities and nodules, and a left pleural effusion Continue Symbicort DuoNebs every 2 hours as needed Ceftriaxone 2 g IV daily Is azithromycin 5 1 mg IV daily No signs of acute chest syndrome Sickle cell anemia- Hemoglobin 11 and hematocrit 30.0 Follow serially Continue folic acid and vitamin B12 supplementation PG Care Time/CCT Total # of Minutes Spent Total Time Spent with Patient: Total time spent is greater than 50% in coordination of care (as documented) at patient's floor/unit and/or counseling patient: Coding Level of Care Code 78518 INT INP/OBS CARE 3/75MIN Diagnoses Pulmonary embolism I26.99 Acute cor pulmonale presence: unspecified Chronicity: acute Pulmonary embolism type: unspecified CAP (community acquired pneumonia) J18.9 Sickle cell anemia D57.00 Sickle-cell associated disorders: with unspecified crisis (1) Pulmonary embolism Acute cor pulmonale presence: unspecified Chronicity: acute Pulmonary embolism type: unspecified Qualified Code(s): I26.99 - Other pulmonary embolism without acute cor pulmonale (3) Sickle cell anemia Sickle-cell associated disorders: with unspecified crisis Qualified Code(s): D57.00 - Hb-SS disease with crisis, unspecified
[2025-02-14] MEDS: HEPARIN SOD (PORCINE) 1000 UNIT/ML IV ONE (02:06)
[2025-02-14] MEDS: AZITHROMYCIN 250 MG TAB PO ONE (02:06)
[2025-02-14] MEDS: cefTRIAXone SODIUM 2,000 MG/50 ML BAG IV STA (02:07)
[2025-02-14] MEDS: HEPARIN 25000 UNIT/500 ML D5W 25,000 UNITS/500 ML BAG IV SCH (02:08)
[2025-02-14] MEDS: Heparin IV Adult Wt-Based Standard w/ INITIAL Bolus Protocol IV STA (02:10)
[2025-02-14] MEDS ORDERED: ALBUT/IPRATROP 3MG/0.5MG NEB 3 ML VIAL NEB PRN ×2 (02:39→14:01)
[2025-02-14] MEDS ORDERED: POLYETHYLENE (MIRALAX) 17 GM PACK PO PRN (03:16)
[2025-02-14] MEDS ORDERED: ONDANSETRON INJ 2 MG/ML 2 ML VIAL IV PRN (03:16)
[2025-02-14] MEDS ORDERED: MELATONIN 3 MG TAB PO PRN (03:16)
[2025-02-14] MEDS ORDERED: MAGNESIUM HYDROXIDE SUSP 30 ML UDC PO PRN (03:16)
[2025-02-14] MEDS: MoRPHine SULFATE 2 MG/ML CARP IV PRN (03:39)
[2025-02-14 04:27] LABS: Hematocrit (blood only) 27.0 % (37.0-47.0); Hemoglobin 9.8 g/dl (12.0-16.0); Mean Corpuscular Hemoglobin 25.7 pg (25.0-34.0); Mean Corpuscular Volume 70.9 fL (80.0-100.0); Platelet Count 343 K/uL (130-400); RDW Standard Deviation 37.3 fL (36.4-46.3); Red Blood Count 3.81 M/uL (4.20-5.40); White Blood Count 12.40 K/ul (4.8-10.8)
[2025-02-14] MEDS: FLUTICASONE/VILANTEROL 100/25MCG 14 PUFFS/INHALER INH SCH (08:14)
[2025-02-14] MEDS: FOLIC ACID 1 MG TAB PO SCH (08:15)
--- NOTE | 2025-02-14 08:15 | Ultrasound Report ---
ULTRASOUND BILATERAL LOWER EXTREMITY VENOUS CLINICAL HISTORY: Pulmonary embolus. COMPARISON STUDY: Left lower extremity venous ultrasound dated 02/10/2024 TECHNIQUE: Real-time, grayscale, and color Doppler sonography of the deep veins of the right and left lower extremity was performed from the inguinal crease to the calf. Compression and augmentation wer e utilized. FINDINGS: There is no sonographic evidence of deep venous thrombosis identified in the right or left lower extremity. The common femoral, superficial femoral, and popliteal veins are patent and normally compressible bilaterally. The greater saphenous vein and the profunda femoris vein at the junction w ith the common femoral vein are clear in both legs. The visualized calf veins are patent bilaterally. IMPRESSION: There is no sonographic evidence of deep venous thrombosis identified in the right or lef t lower extremity. ACT 112: Negative or not required by law. Electronically signed by: Jordan Anne M.D. 02/14/2025 8:14 AM
[2025-02-14] MEDS: CYANOCOBALAMIN (B-12) 500 MCG TABLET PO SCH (08:16)
--- NOTE | 2025-02-14 08:25 | XRay Report ---
SINGLE VIEW CHEST CLINICAL HISTORY: Chest pain FINDINGS: An AP, portable, upright chest radiograph is compared to study dated 08/21/2024 and correlat ed with chest CT dated 05/12/2023. The cardiomediastinal silhouette is unremarkable. There is airspac e consolidation at the left lung base with a small pleural effusion. The right lung appears clear. No pneumothorax is seen. The bony thorax is grossly intact. IMPRESSION: There is airspace consolidation of the left lung base left pleural effusion. This could r epresent pneumonia or possibly a pulmonary infarct. Clinical correlation will be required and radiogr aphic follow-up to resolution is recommended. ACT 112: Negative or not required by law. Electronically signed by: Jordan Anne M.D. 02/14/2025 8:22 AM
[2025-02-14 09:16] LABS: Anion Gap 7.0 (3-11); Calcium 9.5 mg/dl (8.6-10.3); Carbon Dioxide 25.0 mmol/L (21-32); Chloride 105.0 mmol/L (98-107); Potassium 3.8 mmol/L (3.5-5.1); Sodium 137.0 mmol/L (136-145)
[2025-02-14 09:22] LABS: Blood Urea Nitrogen 7.0 mg/dl (6-23); Creatinine Clr Calc Pharmacy 149.1 ml/min; Glucose 90.0 mg/dl (70-99(Fasting))
[2025-02-14 09:52] LABS: ANTI-Xa, UFH(UnfractionatedHep 0.93 IU/ml (0.3-0.7); Hematocrit (blood only) 29.1 % (37.0-47.0); Hemoglobin 10.6 g/dl (12.0-16.0); Mean Corpuscular Hemoglobin 25.9 pg (25.0-34.0); Mean Corpuscular Volume 71.1 fL (80.0-100.0); Platelet Count 342 K/uL (130-400); RDW Standard Deviation 37.3 fL (36.4-46.3); Red Blood Count 4.09 M/uL (4.20-5.40); White Blood Count 11.59 K/ul (4.8-10.8)
--- NOTE | 2025-02-14 12:26 | Pulmonary Consultation ---
Date of Consultation February 14, 2025 Assessment & Plan (1) Pulmonary embolism: Acute cor pulmonale presence: unspecified Chronicity: acute Pulmonary embolism type: unspecified Qualified Code(s): I26.99 - Other pulmonary embolism without acute cor pulmonale (2) Pulmonary infarction: (3) Sickle cell disease: (4) Asthma: Plan Based on the clinical history from the patient this is a provoked PE in the setting of recent prolonged travel (19 hours in a car). The patient has no previous PE nor DVT. She denies any history of miscarriages. Sickle cell disease does put her at higher risk. I have reviewed the CTA imaging, the consolidation is likely a pulmonary infarction from the PE rather than pneumonia. Especially without symptoms of pr oductive cough, fevers or chills. Procalcitonin is also low. The patient has been started on anticoagulation. I agree with this. As this is a provoked PE, it would be recommended that the patient continue anticoagulation for 3 to 6 months. Hypercoagulable workup has been ordered and is pending. The patient has a history of asthma, diagnosed at 16 years of age. Unfortunately she is noncompliant with her inhalers at home and continues to smoke marijuana. She also endorses a history of atopy and seasonal allergies. At this time we would recommend that the patient be discharged with oral antico agulation, she will need at least 3 months of therapy. DOACs would be the preferred agent. The patient will need repeat imaging of the chest in approximately 8 weeks. The patient needs appropriate inhalers upon discharge and needs to be compliant with these in the outpatient setting. I would recommend an ICS/formoterol as maintenance and rescue inhaler upon discharge. Options would be Dulera or Symbicort. She should use these as a scheduled inhaler and then can also use them as rescue inhaler. Consider adding montelukast upon discharge. Avoid smoking, cigarettes or marijuana or vaping. The patient should follow-up with pulmonary clinic, she may see me in clinic in 2 to 3 weeks if desired. Thank you for this consult. I will sign off at this time. Please call me directly with any questions. I have personally spent 55 minutes of time reviewing the patient's chart, personally interpreting imaging, performing a physical exam and taking a medical history. I have communicated and updated the primary hospitalist team as well as bedside nursing staff. History of Present Illness Reason for Consultation: Small left lower lobe PE, left lower lobe consolidation, history of sickle cell Requesting Physician: Ruddy Abraham MD Attending Physician: Marilyn Delatorre MD History of Present Illness Patient is a 34-year-old female with a past medical history significant for sickle cell disease (SC), asthma (diagnosed at the age of 16) and allergic rhinitis. The patient presented to the hospital 02/13/2025 with left-sided chest pain. She described the pain as sharp in nature. She denies shortness of breath. The patient was found to have some mild leukocytosis, D-dimer was elevated. Chest x-ray showed a infiltrate in the left lower lobe with blunting of the costophrenic angle. CT PE was obtained which showed thrombosis of segmental branches in the left lower lobe with adjacent left lower lobe call consolidation and additional small GGO/opacities in the right upper lobe, left lower lobe and right middle lobe. Decrease in previously seen left-sided pleural effusion. The patient was started on antibiotics with Rocephin and azithromycin, heparin infusion was initiated. Pulmonary has been consulted for further recommendations regarding the PE, consolidation and history of sickle cell disease. When examined the patient she was resting comfortably in bed. On room air. Denied any shortness of breath, still having some left-sided chest pain. The patient denies any history of previous DVT or PE. She denies phlegm production but does have a cough. Denies fevers or chills. She has not had any hemoptysis. Heparin drip is infusing. There is no calf tenderness. Ultrasound was negative. The patient gave a pertinent history of a recent trip to [place] where they drove 19 hours home, during that drive she had left leg pain and tightness that has since resolved. Bedside ultrasound was performed which showed normal lung sliding, no pleural effusion identified on the left, curtain sign visible. Lungs are clear to auscultation and there is no wheezing present. The patient states that she has been having more asthma symptoms since July. She has an inhaler at home that she is not using regularly. She also endorses smoking marijuana. She endorses daily cough and wakes up multiple times at night coughing throughout the week. Says albuterol does help her symptoms. She is not sure if she has a environmental professional but does not regularly follow with 1. Diagnostic studies: CT imaging has been reviewed independently by myself. There is a wedge-shaped subpleural consolidation in the left lower lobe and another small wedge-shaped subpleural nodule in the right lower lobe. Left lower PE associated with the consolidation on the left. Duplex ultrasound of the lower extremities does not show evidence of DVT. Echocardiogram 2023: LV borderline dilated, no diastolic dysfunction appreciated. EF 55 to 60%. Normal RV size and function. Trace mitral regurgitation. Mild tricuspid regurgitation. Allergies Allergy/AdvReac Type Severity Reaction Status Date / Time pollen extracts Allergy Mild Congested Verified 12/01/24 10:53 Home Medications Medication Instructions Recorded Confirmed Type folic acid 1 mg tablet 5 mg PO DAILY sickle cell anemia 05/12/23 02/14/25 History acetaminophen 500 mg tablet 1,000 mg PO Q6H PRN Pain 05/19/23 02/14/25 History (Tylenol Extra Strength) albuterol sulfate 90 mcg/actuation 1 inh inhalation Q6H PRN shortness 05/22/23 02/14/25 Rx aerosol inhaler (Ventolin HFA) of breath or wheezing #6.7 grams mecobalamin (vitamin B12) 1,000 1,000 mcg PO DAILY 04/28/24 02/14/25 History mcg chewable tablet budesonide-formoterol HFA 160 1 inh inhalation BID #10.2 grams 12/01/24 02/14/25 Rx mcg-4.5 mcg/actuation aerosol inhaler (Symbicort) Patient History Medical History Trace aortic valve regurgitation History of asthma Mild pulmonary hypertension Right ventricular enlargement Pleural effusion Sepsis Pneumonia Supervision of normal first Rash without hives COVID-19 Pneumonia anemia Pleural effusion Sickle cell anemia Lactating mother Encounter for assessment Sickle cell anemia IUGR (intrauterine growth restriction) affecting care of mother Family history of diabetes mellitus (DM) 2 brothers with Type II Asthma Surgical History S/P section S/P wisdom tooth extraction No pertinent past surgical history Family History Grandmother No problems noted. Brother Diabetes Brother Diabetes Denies family history of Ovarian cancer Prostate cancer Myocardial infarction Breast cancer Colorectal cancer Social History Smoking Status: Never smoker Second Hand Exposure: No; Do You Dip or Chew Tobacco: No; Hx Alcohol Use: Yes Alcohol type: hard liquor Hx Substance Use: Yes Prescribed Medications: Marijuana Substance Use Type Other:: denied substance use when asked Preferred Language: Syriac Communication Ability: Effective Route Contractor Required: No Beliefs That Will Affect Care: None marital status: Single marital status details: Dee Dee NEGRON not involved Current Living Situation: Alone Current Living Situation Comment: with child current occupational status: employed 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 Negative except as in HPI. Physical Exam Physical Exam: Physical examination: General: Well-appearing, well-kept, well-nourished and not in acute distress. HEENT: Normocephalic, atraumatic. Extraocular movements intact. Sclera are nonicteric. No JVD appreciated. Skin: Warm and dry. No rashes appreciated. No jaundice appreciated. Cardiovascular: Heart is a regular rate and rhythm, no murmurs appreciated on my exam. No significant lower extremity edema. Lungs: Clear bilaterally, no wheezing appreciated. No crackles. Nontachypneic. Resting comfortably on room air. Abdomen: Nondistended, nontender to palpation. No masses appreciated. Musculoskeletal: Normal muscle mass and tone. No gross joint deformity abnormalities. No effusions appreciated. Neurologic: Awake and alert, oriented. CN II through XII are grossly intact. Speech is fluent. Nonfocal exam. Psychiatric: Appropriate cooperative during my exam. Imaging: [id number] ultrasound performed at bedside. Images stored. No pleural effusion appreciated with ultrasound. Curtain sign present with normal lung expansion. No pathologic B-lines present. Results & Data Results & Data Vital Signs (Past 12 Hours) Vital Signs Temp Pulse Pulse Resp BP BP Pulse Ox 02/14/25 11:00 36.5 C 70 18 121/72 96 02/14/25 10:46 62 02/14/25 08:28 36.6 C 73 18 111/72 98 02/14/25 03:43 02/14/25 03:25 36.6 C 67 16 96/61 L 96 02/14/25 02:30 70 18 121/67 98 02/14/25 02:00 83 18 102/65 100 02/14/25 01:30 73 16 102/54 L 96 02/14/25 01:24 74 02/14/25 01:00 62 16 105/62 96 O2 Del Method 02/14/25 11:00 Room Air 02/14/25 10:46 02/14/25 08:28 Room Air 02/14/25 03:43 Room Air 02/14/25 03:25 Room Air 02/14/25 02:30 Room Air 02/14/25 02:00 Room Air 02/14/25 01:30 Room Air 02/14/25 01:24 02/14/25 01:00 Room Air PG Care Time/CCT Total # of Minutes Spent Total Time Spent with Patient: Total time spent is greater than 50% in coordination of care (as documented) at patient's floor/unit and/or counseling patient: [place] [address] INT INP/OBS CARE 2/55MIN Patient Type New History Expanded Problem Focused Exam Expanded Problem Focused Medical Decision Making Moderate Complexity Diagnoses Pulmonary embolism I26.99 Acute cor pulmonale presence: unspecified Chronicity: acute Pulmonary embolism type: unspecified Pulmonary infarction I26.99 Sickle cell disease D57.1 Asthma J45.909
--- NOTE | 2025-02-14 12:34 | Hospitalist Progress Note ---
Date of Service February 14, 2025 Assessment & Plan (1) Pulmonary embolism: (2) Pulmonary infarction: (3) Sickle cell anemia: (4) Asthma: Plan Lima is a 34yo F with history of sickle cell anemia (no prior crises reported), multiple hospitalizations for pneumonia, asthma, allergic rhinitis, MR, and LVH presenting for onset of chest pain. Admitted for LLL pulmonary embolism and suspected pneumonia based on CTA chest. More likely that LLL consolidation is a pulmonary infarct based on its proximity to the PE. Requires continued admission for IV heparin infusion in the acute period after PE diagnosis, switching to Eliquis 10mg BID starting 2100, discontinuing abx due to low likelihood of CAP, likely stable for discharge tomorrow 02/15/25. #Pulmonary embolism, LLL Endorses significant provocative factor of recent 19hr drive back from [place]; this combined with her sickle cell disease predisposes her to increased clotting likelihood; denies any personal or family history of PE or disease of clotting/hypercoagulability. CTA chest: pulmonary thrombosis of segmental branches of LLL, consolidation LLL, 2 nodules of ground glass opacities LLL (1cm), L pleural effusion (improved from earlier cxr) - Has been hemodynamically stable since ER arrival, no supplemental O2 needed, no SOB, only mild L-sided chest pain with deep inhalation, improving - Venous Doppler b/l LE negative for DVT - Hypercoag. panel pending - Pulmonology consulted, appreciate recs: starting on Eliquis 10mg BID starting 2100 tonight 02/14/25, discontinue heparin drip at that time Advised she will need to continue Eliquis for 3-6mos; after first week can go down to Eliquis 5mg BID Repeat imaging of the chest in approximately 8 weeks. Pulmonary clinic followup in 2 to 3 weeks #Pneumonia LLL vs pulmonary infarct LLL Chest CTA consolidation LLL, ground glass opacities and nodules, L pleural effusion improved from earlier cxr More than likely the "consolidation" seen is due to pulmonary infarct due to PE within LLL vasculature Will discontinue antibiotics at this time based on lack of clinical signs and symptoms suggestive of pneumonia, as well as normal procal and mild leukocytosis which is nonspecific for infection, likely elevated due to her PE - tylenol prn, morphine 2mg prn #Sickle cell anemia Follows with hematology; no reported hx of sickle cell / vaso-occlusive crisis; no fever, tachypnea, hypoxia, or pleuritic chest pain at time of admission - CBC H/H 05/23.0, retic 0.130 CBC AM - Continue folic acid, vitamin B12 Obtain levels in AM and will obtain iron studies - Consulted hematology, appreciate recs: obtain hgb electrophoresis (hemoglobinopathy eval order), LDH, haptoglobin, reticulocyte count, and peripheral smear On board with pulm's suggestion of DOAC Will consider hydroxyurea based on above bloodwork results #Asthma Not well-controlled on home regimen largely due to lack of compliance and cannabis smoking - pulmonology consulted, appreciate recs: Advising consistent/strict use of Budesonide-formoterol BID as maintenance and rescue inhaler upon discharge Will consider adding montelukast upon discharge Advised to avoid smoking/vaping cannabis or other substances as they can all worsen your asthma and contribute to long-term lung damage Pulm followup as above #Pulmonary HTN, mild; RV enlargement Obtained echocardiogram for monitoring while inpatient Dispo: Obs, PCU tele VTE Prophylaxis: Heparin drip -> Eliquis 10mg BID starting 2100 02/14/25 Admission and Anticipated Discharge Date Admission Date: February 14, 2025 Supervising Physician Co-Signing Physician Notes I personally examined the patient and verified all smith points of history and exam, discussed case, and agree with decision making with Dr. Abraham with the following additions/exceptions: S-patient reports feeling better, only minimal pain in the left side of the chest with deep inspiration. No cough. She reports she did have some left leg swelling especially behind the left knee after her recent car ride home from [place]. O- Vitals Reviewed Gen: AAOx3, NAD HEENT: Anicteric sclerae, EOMI CV: RRR no mgr nl S1S2 Pulm: CTAB no wcr Abd: +BS soft NT ND no masses or hernias Ext: No edema, no calf tenderness Skin: No rashes, warm/dry Neuro: Full strength throughout CBC, BMP, reticulocyte count, anti-Xa level reviewed A/P: 34-year-old female with history of sickle cell disease, allergies, asthma, possible BHUPENDRA, here with acute PE with pulmonary infarct. - Improving, continue IV heparin and convert to Eliquis on the evening of 02/14 with plan to continue anticoagulation for 3 to 6 months - Hypercoagulable workup pending but most likely secondary to provocation from long car ride in the setting of sickle cell disease - Hematology consultation-follow CBC, reticulocyte count, peripheral smear. It is noted in the past that she does have SC disease. Check B12, folate, iron studies in the morning - Pain control, incentive spirometry - Likely discharge to home tomorrow-will need begum check of Eliquis Subjective Lima is doing well this morning, only endorses mild L-sided chest pain with deep inhalation. Denies any SOB, lightheadedness, or dizziness. Endorses intermittent dry cough and occasional wheeze. Has been eating, stooling, and urinating well. Provocative history: had a recent 19hr drive back from [place], endorses L knee swelling which has previously needed to be drained, notes more swelling and pain than usual during car trip. Personal history: denies prior PE or DVT Family history: denies knowledge of prior PE or DVT Physical Exam Physical Exam: General: No acute distress, appearing well HEENT: anicteric sclerae, EOM intact, moist oral mucus membranes CV: RRR, + s1/s2, no m/r/g, 2+ radial pulses b/l Resp: No respiratory distress, mild low-pitched wheeze in b/l posterior lower lung fernandez, otherwise clear to auscultation b/l GI/Abdomen: normoactive BS, no hepatosplenomegaly, nontender to palpation MSK: no LE edema/swelling or erythema, no calf tenderness, no calf size discrepancies, negative Lico's b/l; no gross deformities Neuro: no facial droop, speech intact, no focal deficits Psych: mood-affect congruence, good judgement and insight Results & Data Results & Data Vital Signs (Past 12 Hours) Vital Signs Temp Pulse Pulse Resp BP BP Pulse Ox 02/14/25 11:00 36.5 C 70 18 121/72 96 02/14/25 10:46 62 02/14/25 08:28 36.6 C 73 18 111/72 98 02/14/25 03:43 02/14/25 03:25 36.6 C 67 16 96/61 L 96 02/14/25 02:30 70 18 121/67 98 02/14/25 02:00 83 18 102/65 100 02/14/25 01:30 73 16 102/54 L 96 02/14/25 01:24 74 02/14/25 01:00 62 16 105/62 96 O2 Del Method 02/14/25 11:00 Room Air 02/14/25 10:46 02/14/25 08:28 Room Air 02/14/25 03:43 Room Air 02/14/25 03:25 Room Air 02/14/25 02:30 Room Air 02/14/25 02:00 Room Air 02/14/25 01:30 Room Air 02/14/25 01:24 02/14/25 01:00 Room Air Resident Activity Tracking Resident Involvement: Resident Care Provided Care Provided: Adult Hospital Medicine (1) Pulmonary embolism Acute cor pulmonale presence: unspecified Chronicity: acute Pulmonary embolism type: unspecified Qualified Code(s): I26.99 - Other pulmonary embolism without acute cor pulmonale (3) Sickle cell anemia Sickle-cell associated disorders: with unspecified crisis Qualified Code(s): D57.00 - Hb-SS disease with crisis, unspecified (4) Asthma Asthma complication type: uncomplicated Asthma persistence: persistent Asthma severity: mild Qualified Code(s): J45.30 - Mild persistent asthma, uncomplicated
[2025-02-14] MEDS: ALBUT/IPRATROP 3MG/0.5MG NEB 3 ML VIAL NEB SCH (12:37)
--- NOTE | 2025-02-14 12:46 | Electrocardiogram Report ---
Test Reason : Blood Pressure : */* mmHG Vent. Rate : 84 BPM Atrial Rate : 84 BPM P-R Int : 158 ms QRS Dur : 76 ms QT Int : 340 ms P-R-T Axes : 54 29 64 degrees QTcB Int : 401 ms Normal sinus rhythm Anterior infarct (cited on or before 12-May-2023) Abnormal ECG When compared with ECG of 19-May-2023 20:05, QRS axis Shifted right Questionable change in initial forces of Lateral leads Confirmed by Arun Hawkins ([id number]) on 02/14/2025 12:46:12 PM Referred By: REFERRED SELF Confirmed By: Arun Hawkins
[2025-02-14] MEDS: AZITHROMYCIN 250 MG TAB PO SCH (16:17)
[2025-02-14 18:16] LABS: ANTI-Xa, UFH(UnfractionatedHep 0.49 IU/ml (0.3-0.7)
[2025-02-14] MEDS: APIXABAN 5 MG TABLET PO SCH (20:26)
[2025-02-14] MEDS ORDERED: cefTRIAXone SODIUM 2,000 MG/50 ML BAG IV SCH (22:00)
[2025-02-14] MEDS: ACETAMINOPHEN 500 MG TAB PO PRN (22:38)
[2025-02-15] MEDS ORDERED: AZITHROMYCIN 500 MG/255 ML BAG IV SCH (06:00)
[2025-02-15 06:42] LABS: Anion Gap 5.0 (3-11); Blood Urea Nitrogen 6.0 mg/dl (6-23); Calcium 9.0 mg/dl (8.6-10.3); Carbon Dioxide 27.0 mmol/L (21-32); Chloride 107.0 mmol/L (98-107); Creatinine Clr Calc Pharmacy 138.8 ml/min; Glucose 90.0 mg/dl (70-99(Fasting)); Iron 47.0 mcg/dl (35-150); Potassium 3.8 mmol/L (3.5-5.1); Sodium 139.0 mmol/L (136-145); Total Iron Binding Cap Calc 302.0 mcg/dl (250-450); Transferrin 216.0 mg/dl (200-360); Transferrin (FE) Percent Satur 16.0 % (15-50)
[2025-02-15 07:03] LABS: Ferritin 196.0 ng/ml (8-388)
[2025-02-15 07:08] LABS: ANTI-Xa, UFH(UnfractionatedHep 0.60 IU/ml (0.3-0.7); Hematocrit (blood only) 26.6 % (37.0-47.0); Hemoglobin 9.9 g/dl (12.0-16.0); Mean Corpuscular Hemoglobin 26.5 pg (25.0-34.0); Mean Corpuscular Volume 71.1 fL (80.0-100.0); RDW Standard Deviation 36.7 fL (36.4-46.3); Red Blood Count 3.74 M/uL (4.20-5.40)
[2025-02-15 07:09] LABS: Folate (Folic Acid),Ser orPlas 16.02 ng/ml (>5.38)
[2025-02-15 07:10] LABS: Vitamin B12 276.0 pg/ml (180-914)
[2025-02-15 07:40] VITALS: TEMP 98.1
[2025-02-15] MEDS ORDERED: cefTRIAXone SODIUM 2,000 MG/50 ML BAG IV SCH (08:00)
[2025-02-15 08:18] LABS: Basophilic Stippling 1+; Immature Granulocytes # (auto) 0.02 K/uL (0.01-0.20); Immature Granulocytes % (auto) 0.2 %; Platelet Count 343 K/uL (130-400); Poikilocytosis Present; Polychromasia 2+; Reticulated Hemoglobin 26.2 pg (28.2-36.6); Reticulocytes # 0.120 10^6/uL (0.020-0.100); Stomatocytes 1+; Target Cells 3+; White Blood Count 8.22 K/ul (4.8-10.8)
--- NOTE | 2025-02-15 09:34 | Discharge Summary ---
Date of Service February 15, 2025 Admission HPI Per Admitting Provider 34-year-old female PMHx sickle cell anemia, allergic rhinitis, MR, and LVH presenting for onset of chest pain. 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 She states that she has had pneumonia in the past and that this felt like she was developing another pneumonia. The chest pain did not change on the day of arrival however since it was continuing and stable at high severity, she decided to come to be evaluated. She states that it is localized to the left side without radiation, describing it as a sharp pain and rating an 8 out of 10 on the pain scale at its worst. She has been having a cough for "a few months" and has been wheezing since July. She states that smoke from the ground does occasionally irritate her breathing she feels that she wheezes more. Exercise also causes her to wheeze more. She has a history of asthma, does not feel that her inhaler is of any benefit. She is denying SOB, palpitations, dizziness/ lightheadedness, or syncope. Additionally denies abdominal pain, N/V/B/C, URI symptoms, fever/chills, edema, calf pain, numbness/tingling, or weakness. Has a history of sickle cell, follows with hematology. ED evaluation reveals CBC with leukocytosis 10.96, H/H 11/30.0; PT/INR pending; D-dimer 1340; CMP Na 135, bili 1.3; troponin 3.6, 4.5 on repeat; CXR pending official read; Chest CTA pulmonary thrombosis of segmental branches of LLL, consolidation LLL, ground glass opacity RUL (2cm), 2 nodules of ground glass opacities LLL (1cm), RLL (6mm), nodule RML, L pleural effusion (interval decrease); EKG NSR at 84 bpm.; Provided with ketorolac 10mg IV, heparin IV, ceftriaxone 2g IV, azithromycin 500mg po, and acetaminophen 1g IV in ED. Please see Dr. Arteaga's attestation for adjustments/additions to treatment plan. Admission Exam Per Admitting Provider General: No acute distress Skin: Warm and dry Head: Normocephalic, atraumatic Eyes: PERRL, conjunctivae clear, sclera non-icteric ENT: External ear and ear canal without swelling; nose atraumatic; good dentition, tongue normal appearance, pharynx normal Neck: Supple, no LAD Cardio: RRR, no M/G/R, S1 and S2 normal Resp: No respiratory distress, Lungs CTA in all lobes bilaterally, no wheezes, rales, or rhonchi Abdomen: Soft, symmetric, nontender; No masses or hepatosplenomegaly; Bowel sounds normoactive MSK: No deformities; pulses palpable and equal; no edema; no calf tenderness; no calf size discrepancies. Neuro: Awake, alert; Sensation intact bilaterally; CN grossly intact Psych: Appropriate mood and affect; good judgement and insight. Principal Diagnosis pulmonary embolism, provoked Discharge Exam General: No acute distress, appearing well HEENT: anicteric sclerae, EOM intact, moist oral mucus membranes CV: RRR, + s1/s2, no m/r/g, 2+ radial pulses b/l Resp: No respiratory distress, mild low-pitched wheeze in b/l posterior lower lung fernandez, otherwise clear to auscultation b/l GI/Abdomen: normoactive BS, no hepatosplenomegaly, nontender to palpation MSK: no LE edema/swelling or erythema, no calf tenderness, no calf size discrepancies, negative Lico's b/l; no gross deformities Neuro: no facial droop, speech intact, no focal deficits Psych: mood-affect congruence, good judgement and insight Discharge Data Allergies Allergy/AdvReac Type Severity Reaction Status Date / Time pollen extracts Allergy Mild Congested Verified 12/01/24 10:53 Consultations 02/14/25 01:40 ED Decision to Admit Stat 02/14/25 11:43 Consult Pulmonology Routine 02/14/25 12:13 Consult Hematology Routine Ordered Studies 02/13/25 23:45 CT angio chest PE protocol Stat 02/14/25 02:25 US venous doppler LE BI Urgent 02/14/25 12:38 US point of care ultrasound Urgent Hospital Course (1) Pulmonary embolism: (2) Pulmonary infarction: (3) Sickle cell anemia: (4) Asthma: Drew Amato is a 34yo F with history of sickle cell anemia (no prior crises reported), multiple hospitalizations for pneumonia, asthma, allergic rhinitis, MR, and LVH presenting for onset of chest pain. Admitted for LLL pulmonary embolism and suspected pneumonia based on CTA chest. More likely that LLL consolidation is a pulmonary infarct based on its proximity to the PE. However, she has been with stable vital signs since arriving and been medically stable, on room air, and with minimal wheezing or pulmonary, circulatory, or neurologic symptoms. Therefore we are comfortable with her discharge home today. Advised to follow up with PCP this week if possible and with Dr. Welch in pulmonology clinic in 2-3 weeks. #Pulmonary embolism, Left lower lobe Recent 19hr drive back from [place], this combined with sickle cell disease predisposes her to increased clotting likelihood; no known personal or family history of PE or disease of clotting/hypercoagulability. - hemodynamically stable since ER arrival, no supplemental O2 needed, no SOB, only mild L-sided chest pain with deep inhalation, improving - Venous Doppler of legs negative for DVT - Hypercoag. panel pending - Continue Eliquis 10mg twice daily for the remainder of this first week, then can go down to 5mg twice daily, which we advise to continue for 3-6mos - Repeat imaging of the chest in approximately 8 weeks - Pulmonary clinic followup with Dr. Welch in 2 to 3 weeks #Pulmonary infarct within left lower lobe More than likely the "consolidation" seen on imaging is due to pulmonary infarct (lack of blood flow) due to the PE within left lower lung vasculature Will discontinue antibiotics at this time based on lack of clinical signs and symptoms suggestive of pneumonia, as well as normal procal and mild leukocytosis which is nonspecific for infection, likely elevated due to PE #Sickle cell anemia - Continue folic acid, vitamin B12 - Pending hemoglobin electrophoresis, haptoglobin, reticulocyte count, and peripheral smear - Will consider starting on hydroxyurea based on above bloodwork results #Asthma Advising consistent/strict use of Budesonide-formoterol (Symbicort) twice daily as maintenance, and rescue inhaler upon discharge - advised to avoid smoking/vaping cannabis or other substances as they can all worsen asthma and contribute to long-term lung damage - Pulm followup in 2-3 weeks as above #Pulmonary HTN, mild; RV enlargement Obtained echocardiogram for monitoring while inpatient, pending result but likely no significant change based on your hemodynamic stability and lack of symptoms Total Time Total Time Spent Total Time Spent (In Minutes): 25 Discharge Plan Discharge Items Patient Disposition: Home - Self-Care Reason For Visit: PE, PNA Discharge Diagnosis: LLL pulmonary embolism, related pulmonary infarct Condition on Discharge: Good Activity: Per Instructions section Non-emergency contact: Primary Care Provider Call non-emergency contact if: your symptoms worsen and your pain is not controlled Follow-up/Referrals: Lona Gannon MD [Physician] - (followup this week if possible: here with provoked PE after long drive home from [place], hemodynamically stable entire hosp stay but started on Eliquis 10mg BID 1wk -> 5mg BID thereafter for 3-6mos - advised strict compliance with Symbicort BID, advised to stop/reduce cannabis smoking - pulm followup in 2-3mos with Dr. Welch) Kasey Welch MD [Physician] - (in 2-3wks) PCP,NO [Primary Care Provider] - Diet: Regular Addtl Attending Provider Instructions: You were treated at [facility] for a pulmonary embolism (blood clot in lung vasculature) in the Left Lower Lung, most likely due to a combination of your sickle cell disease and the fact that you recently had a long car ride home from [place]. The combination of stasis (being seated in one position for a long time) combined with your irregular red blood cell shapes likely resulted in a blood clot in the leg which then traveled up to the heart, then into the pulmonary circulation, causing a small blockage resulting in a small amount of lung tissue dying. However, you have been with stable vital signs since arriving and you have been medically stable, on room air, and with minimal wheezing or pulmonary, circulatory, or neurologic symptoms. Therefore we are comfortable with your discharge today. Please follow up with your PCP this week if possible and with Dr. eWlch in pulmonology clinic in 2-3 weeks. #Pulmonary embolism, Left lower lobe Recent 19hr drive back from [place], this combined with your sickle cell disease predisposes you to increased clotting likelihood; no known personal or family history of PE or disease of clotting/hypercoagulability. - you have been hemodynamically stable since ER arrival, no supplemental O2 needed, no SOB, only mild L-sided chest pain with deep inhalation, improving - Venous Doppler of legs negative for DVT - Hypercoag. panel pending - Continue Eliquis 10mg twice daily for the remainder of this first week, then can go down to 5mg twice daily, which we advise you to continue for 3-6mos - Repeat imaging of the chest in approximately 8 weeks - Pulmonary clinic followup with Dr. Welch in 2 to 3 weeks #Pulmonary infarct within left lower lobe More than likely the "consolidation" seen on imaging is due to pulmonary infarct (lack of blood flow) due to the PE within left lower lung vasculature Will discontinue antibiotics at this time based on lack of clinical signs and symptoms suggestive of pneumonia, as well as normal procal and mild leukocytosis which is nonspecific for infection, likely elevated due to your PE #Sickle cell anemia - Continue folic acid, vitamin B12 - Pending hemoglobin electrophoresis, haptoglobin, reticulocyte count, and peripheral smear - Will consider starting on hydroxyurea based on above bloodwork results #Asthma Advising consistent/strict use of Budesonide-formoterol (Symbicort) twice daily as maintenance, and rescue inhaler upon discharge - advised to avoid smoking/vaping cannabis or other substances as they can all worsen your asthma and contribute to long-term lung damage - Pulm followup in 2-3 weeks as above #Pulmonary HTN, mild; RV enlargement Obtained echocardiogram for monitoring while inpatient, pending result but likely no significant change based on your hemodynamic stability and lack of symptoms Pending Studies at Discharge: Yes Studies:: hypercoagulability labs, sickle cell labs Stand-Alone Forms: My [facility], Smoking Cessation Medications and DC Order Prescriptions: New Eliquis 5 mg (74 tabs) tablets,dose pack 5 mg PO BID Qty: 74 0RF Rx Instructions: - 10mg (two tablets) TWICE daily dosing started evening 02/14/25: continue for 1 week -> take twice daily through Saturday02/21/25 AM with only the AM dose that day - thereafter, take 5mg (one tablet) TWICE daily starting Saturday02/21/25 PM, so only one dose that day. Then simply twice daily Eliquis 5 mg tablet 5 mg PO BID Qty: 84 0RF Rx Instructions: Take 10mg (TWO tablets) TWICE daily dosing started evening 02/14/25: take twice daily through Saturday02/21/25 AM with only the AM dose that day. - thereafter, take 5mg (ONE tablet) TWICE daily starting Saturday02/21/25 PM, so only one dose that day. Then simply twice daily Continued mecobalamin (vitamin B12) 1,000 mcg tablet,chewable 1,000 mcg PO DAILY budesonide-formoterol [Symbicort] 160-4.5 mcg/actuation HFA aerosol inhaler 1 inh inhalation BID Qty: 10.2 2RF acetaminophen [Tylenol Extra Strength] 500 mg Tablet 1,000 mg PO Q6H PRN (Reason: Pain) folic acid 1 mg tablet 5 mg PO DAILY Qty: 30 0RF albuterol sulfate [Ventolin HFA] 90 mcg/actuation HFA aerosol inhaler 1 inh inhalation Q6H PRN (Reason: shortness of breath or wheezing) Qty: 6.7 0RF Discharge Orders: Discharge Order (Routine); Ordered 02/15/25 Ordered By: Alexander Denney/Other Patient Handouts: Apixaban Oral Tablet, Pulmonary Angiography, Pulmonary Embolism Dc, Venous Thromboembolism Admission Data Admit Date/Time: 02/14/25 02:16 Attending Provider: Alexander Tinajero Admit Provider: Chris Arteaga Primary Care Provider: PCP,NO Other Providers: Chris Arteaga; Kasey Welch; Haley Lerner Other Interventions: Discharge Summary Assessment (RN) Last Done: 02/15/25 14:39 Supervising Physician Co-Signing Physician Notes I personally examined the patient and verified all smith points of history and exam, discussed case, and agree with decision making with Dr Abraham Feeling better. Feels up to going home. 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 Vitals noted, in general she is awake and alert pleasant no distress. HEENT normocephalic atraumatic mucous membranes moist. Breathing unlabored no accessory muscle use good effort. Skin without rashes pallor or icterus. Neuro without focal deficits. PEprovoking factors being sickle cell and car rideanticoagulation for now. Consider low-dose indefinite anticoagulation given risk of recurrence. But definitely at least full anticoagulation 3-6 months. Case management assisted with RORE MEDIAcingaffordable. Safe/stable for home. Resident Activity Tracking Resident Involvement: Resident Care Provided Care Provided: Adult Hospital Medicine
[2025-02-15 10:41] VITALS: BP 100/64; PULSE 69; RESP 18; O2SAT 97
--- NOTE | 2025-02-15 13:06 | Oncology Consultation ---
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 PLAN: -continue DOAC for 3-6 months minimum -B12 and folic acid daily -no hydroxyurea -retic count, LDH, haptoglobin, peripheral blood smear, hemoglobin electrophoresis, iron studies, %transferrin sat - recommend echocardiogram -follow up with Dr. Luther hematology ECOG 0. Pt amenable with plan. Case discussed with Dr. Abraham yesterday electronically. Thank you for allowing me to participate in the care of this fine patient. History of Present Illness Reason for Consultation: Sickle SC disease PE Requesting Physician: Dr. Ruddy Abraham Attending Physician: Alexander Tinajero DO History of Present Illness 34 year old black female with past medical history of Sickle SC disease for w [facility] she [facility] The patient presented to [facility] hospital on 02/13/25 with left sided chest pain - sharp. She denied shortness of breath. She had been traveling for 19 hours in a car, traveling from [place] to [place], [place]. D Dimer elevated Leukocytosis CXR -left lower lobe infiltrate with blunting of the costophrenic angle. CT angiogram chest - demonstrated thrombosis of segmental branches in the left lower lobe with adjacent left lower lobe call consolidation and additional small GGO/opacities in the right upper lobe, left lower lobe and right middle lobe. Decrease in previously seen left-sided pleural effusion. The patient was started on antibiotics with Rocephin and azithromycin, heparin infusion was initiated. Pulmonary was consulted for further recommendations regarding the PE, consolidation and history of sickle cell disease. I was consulted for further recommendations regarding PE and hemoglobinopathy - SC disease. Allergies Allergy/AdvReac Type Severity Reaction Status Date / Time pollen extracts Allergy Mild Congested Verified 12/01/24 10:53 Home Medications Medication Instructions Recorded Confirmed Type acetaminophen 500 mg tablet 1,000 mg PO Q6H PRN Pain 05/19/23 02/14/25 History (Tylenol Extra Strength) mecobalamin (vitamin B12) 1,000 1,000 mcg PO DAILY 04/28/24 02/14/25 History mcg chewable tablet budesonide-formoterol HFA 160 1 inh inhalation BID #10.2 grams 12/01/24 02/14/25 Rx mcg-4.5 mcg/actuation aerosol inhaler (Symbicort) albuterol sulfate 90 mcg/actuation 1 inh inhalation Q6H PRN shortness 02/15/25 Rx aerosol inhaler (Ventolin HFA) of breath or wheezing #6.7 grams apixaban 5 mg (74 tabs) tablets in 5 mg PO BID #74 ea 02/15/25 Rx a dose pack (Eliquis) apixaban 5 mg tablet (Eliquis) 5 mg PO BID #84 tabs 02/15/25 Rx folic acid 1 mg tablet 5 mg (5 x 1 mg) PO DAILY sickle 02/15/25 Rx cell anemia #30 tabs Patient History Medical History Trace aortic valve regurgitation History of asthma Mild pulmonary hypertension Right ventricular enlargement Pleural effusion Sepsis Pneumonia Supervision of normal first Rash without hives COVID-19 Pneumonia anemia Pleural effusion Sickle cell anemia Lactating mother Encounter for assessment Sickle cell anemia IUGR (intrauterine growth restriction) affecting care of mother Family history of diabetes mellitus (DM) 2 brothers with Type II Asthma Surgical History S/P section S/P wisdom tooth extraction No pertinent past surgical history Family History Grandmother No problems noted. Brother Diabetes Brother Diabetes Denies family history of Ovarian cancer Prostate cancer Myocardial infarction Breast cancer Colorectal cancer Social History Smoking Status: Never smoker Second Hand Exposure: No; Do You Dip or Chew Tobacco: No; Hx Alcohol Use: Yes Alcohol type: hard liquor Hx Substance Use: Yes Prescribed Medications: Marijuana Substance Use Type Other:: denied substance use when asked Preferred Language: Jamaican Communication Ability: Effective Quality Controller Required: No Beliefs That Will Affect Care: None marital status: Single marital status details: Dee Dee NEGRON not involved Current Living Situation: Alone Current Living Situation Comment: with child current occupational status: employed 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[employer], 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 [employer] Feels Safe at Home: Yes Safety Concerns: Feels Safe At This Time Childhood Exposure to Second-Hand Smoke: No Dental Care, Regularly: No Physical Activity Frequency: Daily Seatbelt Use: always Sunscreen Use: No Assistive Devices: Glasses Review of Systems Review of Systems: Constitutional: No Weight Change, No Fever, No Chills, No Night Sweats, No Fatigue, No Malaise ENT/Mouth: No Hearing Changes, No Ear Pain, No Nasal Congestion, No Sinus Pain, No Hoarseness, No sore throat, No Rhinorrhea, No Swallowing Difficulty Eyes: No Eye Pain, No Swelling, No Redness, No Foreign Body, No Discharge, No Vision Changes Cardiovascular: No Chest Pain, No SOB, No PND, No Dyspnea on Exertion, No Orthopnea, No Claudication, No Edema, No Palpitations Respiratory: No Cough, No Sputum, No Wheezing, No Smoke Exposure, No Dyspnea Gastrointestinal: No Nausea, No Vomiting, No Diarrhea, No Constipation, No Pain, No Heartburn, No Anorexia, No Dysphagia, No Hematochezia, No Melena, No Flatulence, No Jaundice Genitourinary: No Dysmenorrhea, No DUB, No Dyspareunia, No Dysuria, No Urinary Frequency, No Hematuria, No Urinary Incontinence, No Urgency, No Flank Pain, No Urinary Flow Changes, No Hesitancy Musculoskeletal: No Arthralgias, No Myalgias, No Joint Swelling, No Joint Stiffness, No Back Pain, No Neck Pain, No Injury History Skin: No Skin Lesions, No Pruritis, No Hair Changes, No Breast/Skin Changes, No Nipple Discharge Neuro: No Weakness, No Numbness, No Paresthesias, No Loss of Consciousness, No Syncope, No Dizziness, No Headache, No Coordination Changes, No Recent Falls Psych: No Anxiety/Panic, No Depression, No Insomnia, No Personality Changes, No Delusions, No Rumination, No SI/HI/AH/VH, No Social Issues, No Memory Changes, No Violence/Abuse Hx., No Eating Concerns Heme/Lymph: No Bruising, No Bleeding, No Transfusions History, No Lymphadenopathy Endocrine: No Polyuria, No Polydipsia, No Temperature Intolerance Physical Exam Physical Exam: VITALS: Reviewed. WEIGHT/BMI reviewed. GEN: Healthy appearing, well-developed, NAD. PSYCH: Good Judgment. AOx3. Normal memory, mood, and affect. HEENT -Head: NC/AT; -Eyes: PERRL, EOMI. No discharge or redn ess; -Ears: External ears are normal. Normal TMs. -Nose: Normal nares. -Mouth and throat: MMM. Normal gums, muc parveen, palate,. Good dentition. NECK: Supple, with no masses. CV: RRR, no m/r/g. LUNGS: CTAB, no w/r/c. ABD: Soft, NT/ND, NBS, no masses or organomegaly. : N/A SKIN: Warm, well perfused. No skin rashes or abnormal lesions. MSK: No deformities, Normal gait. EXT: No clubbing, cyanosis, or edema. NEURO: Ambulating with no limitations. Normal muscle strength and tone. No focal deficits. Results & Data Vital Signs (Past 12 Hours) Vital Signs Temp Pulse Pulse Resp BP Pulse Ox O2 Del Method 02/15/25 10:40 36.7 C 69 18 100/64 97 Room Air 02/15/25 08:00 81 02/15/25 07:40 36.7 C 63 20 104/67 96 Room Air 02/15/25 02:57 36.6 C 62 16 96/60 L 98 Room Air Laboratory Results Laboratory Results - last 24 hr 02/14/25 02/15/25 17:39 05:47 WBC 8.22 RBC 3.74 L Hgb 9.9 L Hct 26.6 L MCV 71.1 L MCH 26.5 MCHC 37.2 H RDW Std Deviation 36.7 RDW Coeff of Aletha 14.6 H Plt Count 343 MPV 10.3 Immature Gran % (Auto) 0.2 Neut % (Auto) 45.2 Lymph % (Auto) 34.3 [place] % (Auto) 13.6 Eos % (Auto) 5.5 Baso % (Auto) 1.2 Reticulocyte % (Auto) 3.26 H Neut # (Auto) 3.71 Lymph # (Auto) 2.82 [place] # (Auto) 1.12 H Eos # (Auto) 0.45 Baso # (Auto) 0.10 Reticulocyte # 0.120 H Immature Gran # (Auto) 0.02 Absolute Nucleated RBC 0.03 Nucleated RBC % (auto) 0.4 Polychromasia 2+ Poikilocytosis Present Basophilic Stippling 1+ Target Cells 3+ Stomatocytes 1+ Peripher Smr Path Cons Immature Retic Fraction 21.4 H Retic Hgb Content 26.2 L Hemoglobin A Pending Hemoglobin A2 Pending Hemoglobin C Pending Hemoglobin E Pending Hemoglobin F () Pending Hemoglobin S Pending Variant Hemoglobin Pending Hemoglobin Variant 2 Pending Hgb ELP Interp Pending Hemoglobinopathy Red Blood Count Pending Hemoglobinopathy Hct Pending Hemoglobinopathy Hgb Pending Hemoglobinopathy MCV Pending Hemoglobinopathy MCH Pending Hemoglobinopathy RDW Pending Haptoglobin Pending Heparin Anti-Xa, Unfract 0.49 0.60 Sodium 139 Potassium 3.8 Chloride 107 Carbon Dioxide 27 Anion Gap 5 BUN 6 Creatinine 0.71 Est Cr Clr Drug Dosing 138.8 eGFR 115.78 BUN/Creatinine Ratio 8.5 L Glucose 90 Calcium 9.0 Iron 47 TIBC 302 Transferrin 216 Transferrin % Sat 16 Ferritin 196.0 Lactate Dehydrogenase 177 Vitamin B12 276 Folate 16.02 (2) Pulmonary embolism Acute cor pulmonale presence: unspecified Chronicity: acute Pulmonary embolism type: unspecified Qualified Code(s): I26.99 - Other pulmonary embolism without acute cor pulmonale
--- NOTE | 2025-02-15 13:09 | Oncology Consultation ---
Date of Consultation February 15, 2025 History of Present Illness Reason for Consultation: Sickle Cell - SC disease Requesting Physician: Dr. Ruddy Abraham Attending Physician: Alexander Tinajero DO Allergies Allergy/AdvReac Type Severity Reaction Status Date / Time pollen extracts Allergy Mild Congested Verified 12/01/24 10:53 Home Medications Medication Instructions Recorded Confirmed Type acetaminophen 500 mg tablet 1,000 mg PO Q6H PRN Pain 05/19/23 02/14/25 History (Tylenol Extra Strength) mecobalamin (vitamin B12) 1,000 1,000 mcg PO DAILY 04/28/24 02/14/25 History mcg chewable tablet budesonide-formoterol HFA 160 1 inh inhalation BID #10.2 grams 12/01/24 02/14/25 Rx mcg-4.5 mcg/actuation aerosol inhaler (Symbicort) albuterol sulfate 90 mcg/actuation 1 inh inhalation Q6H PRN shortness 02/15/25 Rx aerosol inhaler (Ventolin HFA) of breath or wheezing #6.7 grams apixaban 5 mg (74 tabs) tablets in 5 mg PO BID #74 ea 02/15/25 Rx a dose pack (Eliquis) apixaban 5 mg tablet (Eliquis) 5 mg PO BID #84 tabs 02/15/25 Rx folic acid 1 mg tablet 5 mg (5 x 1 mg) PO DAILY sickle 02/15/25 Rx cell anemia #30 tabs Patient History Medical History Trace aortic valve regurgitation History of asthma Mild pulmonary hypertension Right ventricular enlargement Pleural effusion Sepsis Pneumonia Supervision of normal first Rash without hives COVID-19 Pneumonia anemia Pleural effusion Sickle cell anemia Lactating mother Encounter for assessment Sickle cell anemia IUGR (intrauterine growth restriction) affecting care of mother Family history of diabetes mellitus (DM) 2 brothers with Type II Asthma Surgical History S/P section S/P wisdom tooth extraction No pertinent past surgical history Family History Grandmother No problems noted. Brother Diabetes Brother Diabetes Denies family history of Ovarian cancer Prostate cancer Myocardial infarction Breast cancer Colorectal cancer Social History Smoking Status: Never smoker Second Hand Exposure: No; Do You Dip or Chew Tobacco: No; Hx Alcohol Use: Yes Alcohol type: hard liquor Hx Substance Use: Yes Prescribed Medications: Marijuana Substance Use Type Other:: denied substance use when asked Preferred Language: Azerbaijani Communication Ability: Effective Residential Door Unit Installer Required: No Beliefs That Will Affect Care: None marital status: Single marital status details: Dee Dee Carlyn NEGRON not involved Current Living Situation: Alone Current Living Situation Comment: with child current occupational status: employed 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
[2025-02-15] MEDS: CYANOCOBALAMIN 1000 MCG/ML VIAL IM SCH (14:26)
--- NOTE | 2025-02-15 14:26 | Billing Data ---
Date of Service February 15, 2025 Coding Level of Care Code 14121 IN/OBS DISCH 30 MIN/LESS
--- NOTE | 2025-02-15 23:26 | XCELERA ---
[id number]
[2025-02-18 12:39] LABS: Lupus Hex Phase (Rflxdonotord) Negative (Negative)
[2025-02-19 02:13] LABS: HCT 32.1 % (35.0-45.0); HGB 10.0 g/dL (11.7-15.5); MCH 25.9 pg (27.0-33.0); MCV 83.2 fL (80.0-100.0); RBC 3.86 Mill/uL (3.80-5.10); RDW 15.7 % (11.0-15.0)
== END 2025-02-15 16:15 | disposition home or self-care (01) ==
LOC: 2S 21:46 → ED 21:46 → SUATTDRO 02-14 02:16 → 2S 02-14 02:51